=== PATIENT | female | born 1950 | race Caucasian/White ===

== ENCOUNTER 2016-08-25 13:06 | Emergency (ER) | payer OTHER ==
[~2016-08-25 13:06] MED LIST: ASPI-973 PO; FOLI1TAB18 PO; IBUP800T28 PO; LORA-302 PO; LORA0.5T PO; MTC5T PO; ONDA-54 PO; OXYC20TA55 PO; SERT50TA9 PO; WARF5TAB9 PO
[2016-08-25 13:17] VITALS: BP 131/79; PULSE 107; RESP 20; O2SAT 98
--- NOTE | 2016-08-25 13:50 | ED.REPORT ---
HPI-Chest Pain 40 and Over Date of Service Aug 25, 2016 ED Provider: Layo Cobb MD Pt is a 65 y/o female anticoagulated on Warfarin and undergoing chemotherapy with Alimta and Avastin w/ a hx of stage IV lung CA, prev DVT, presenting to the ED c/o left-sided chest pain/heaviness onset 09:30 this morning. She c/o associated SOB, generalized weakness, nausea, vomiting x1 episode yesterday, intermittent dry cough, fever of 100F 2 days ago that has now resolved. She denies abdominal pain, diarrhea. Her pain is exacerbated by bending forwards. The pt has required thoracentesis multiple times previously and believes today' s episode to be similar. She has a history of DVT and is currently taking Warfarin. Her last chemotherapy treatment was 1 week ago. Her prognosis was initially thought to be months but it has been a year since her diagnosis. Oncologist: Dr. Lord Nursing Notes Stated Complaint: CHEST PAIN Chief Complaint: Chest Pain Nursing Notes Reviewed: Yes Allergies: Coded Allergies: No Known Allergies (Verified , 06/02/16) Scheduled Aspirin (Aspirin) 81 Mg Tablet 81 MG PO Evening Folic Acid (Folic Acid) 1 Mg Tablet 1 MG PO DAILY Levofloxacin (Levaquin) 750 Mg Tablet 750 MG PO DAILY Lorazepam (Ativan) 0.5 Mg Tablet 0.5 MG PO MORNING Ondansetron (Ondansetron) 8 Mg Tablet 8 MG PO BID Oxycodone ER (Oxycontin) 20 Mg Tab.er.12h 20 MG PO BID Sertraline HCl (Sertraline) 50 Mg Tablet 50 MG PO DAILY Warfarin Sodium (Jantoven) 5 Mg Tablet 5 MG PO DAILY Scheduled PRN Ibuprofen (Ibuprofen) 800 Mg Tablet 800 MG PO TID PRN PRN For Pain Lorazepam (Lorazepam) 0.5 Mg Tablet 1 MG PO HS PRN PRN For Insomnia Metoclopramide (Metoclopramide) 5 Mg Tablet 5 MG PO QID PRN PRN For Nausea Ondansetron ODT (Zofran ODT) 4 Mg Tablet 4 MG PO Q4H PRN PRN For Nausea General Time Seen by MD: 13:26 Chief Complaint Chest pain Hx Obtained From: Patient, EMS Arrived By: Ambulance Sudden in Onset?: No Onset Occurred: 5 - 8 hours ago Symptom Duration: Since onset Location: : Chest left Quality: Painful Severity: Current: Mild Severity: Maximum: Moderate Recent Healthcare: Previous diagnosis Similar Sx Previous: Yes Past Medical History Past Medical History Notes: Oncologist: Dr. 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 Physical Exam Initial Vital Signs Vital Signs (First) Date Time Temp Pulse Resp B/P Pulse Ox O2 Delivery O2 Flow Rate FiO2 08/25/16 13:17 36.9 107 20 131/79 98 Room Air Initial VS: Reviewed, Vital signs abnormal Head / Eyes: Atraumatic, Normocephalic, PERRL ENT: Mucous membranes moist, Conjunctiva normal, No scleral icterus Neck: Supple, Full range of motion Extremities: Vascular intact, Neuro intact, No swelling, No tenderness Skin: Warm, Dry, No cyanosis Neurologic: Alert, Oriented, Nonfocal Psychiatric: Mood/affect normal, Behavior normal, Normal thought content General/Constitutional: Awake, Alert, No acute distress, Cooperative, Not toxic appearing Respiratory / Chest: Atraumatic, No respiratory distress, No retractions, No stridor, No chest wall deformity, No crepitus Decreased breath sounds on the left side Left anterior chest wall tender to palpation Cardiovascular: Heart rate NL, Regular rhythm, Heart sounds NL, No gallop, No murmurs, No rubs, Cap refill not delayed, Peripheral circulation NL Abdomen: Atraumatic, Soft, Non-tender Interpretation & Diagnostics Lab Results Interpretation Result Diagram: 08/25/16 1340 08/25/16 1340 Test 08/25/16 13:40 08/25/16 14:05 White Blood Count 7.3th/mm3 (3.8-10.1) Red Blood Count 3.48mil/mm3 (3.90-5.20) Hemoglobin 10.3g/dL (12.0-15.6) Hematocrit 31.5% (35.0-46.0) Mean Corpuscular Volume 90.5fL (81-100) Mean Corpuscular Hemoglobin 29.6pg (27.0-35.0) Mean Corpuscular Hemoglobin Concent 32.7% (32.0-37.0) Red Cell Distribution Width 19.3% (12.3-15.4) Platelet Count 375bil/L (150-400) Neutrophils (%) (Auto) 69.5% (40-74) Lymphocytes (%) (Auto) 14.1% (14-46) Monocytes (%) (Auto) 14.3% (4-12) Eosinophils (%) (Auto) 1.4% (0-5) Basophils (%) (Auto) 0.3% (0-3) Sodium Level 137mEq/L (134-144) Potassium Level 4.0mEq/L (3.5-5.2) Chloride Level 100mEq/L (97-108) Carbon Dioxide Level 24mmol/L (18-29) Blood Urea Nitrogen 12mg/dL (8-27) Creatinine 0.51mg/dL (0.57-1.00) Estimat Glomerular Filtration Rate 174mL/min (>59) Glucose Level 137mg/dL (60-99) Lactic Acid Level 2.0mmol/L (0.4-2.0) Calcium Level 8.6mg/dL (8.5-10.1) Magnesium Level 1.8mg/dL (1.6-2.6) Total Bilirubin 0.3mg/dL (0.0-1.2) Aspartate Amino Transf (AST/SGOT) 17U/L (0-50) Alanine Aminotransferase (ALT/SGPT) 11U/L (0-32) Alkaline Phosphatase 83U/L (25-165) Troponin T < 0.010ug/L (0.0-0.011) Total Protein 6.1g/dL (6.4-8.4) Albumin 3.3g/dL (3.4-5.0) Hold Jeffery Top Tube Received (Received) D-Dimer 1.6mg/L (<0.50) ECG Interpretation Time: 15:17 Interpreted by: ED physician Normal ECG Interpretation: Normal ECG w/ rate of... (94), Normal rate, Normal sinus rhythm, No acute ischemic changes, Normal QRS, Normal axis, Normal intervals, Adequate tracing X-Ray Chest Interpretation Chest Xray Interpretation: IMPRESSION: Interval increase in size of left pleural effusion. There is an underlying airspace disease such as pneumonia and/or atelectasis cannot be excluded. In addition, there is underlying mass lesion cannot be excluded. Dictated by: Shani Knapp M.D. on 08/25/2016 at 14:18 Approved by: Shani Knapp M.D. on 08/25/2016 at 14:20 View: Portable, 1 view Interpretation / Wet Read by: Interpret - Radiologist CT Chest Interpretation IMPRESSION: 1. Exam is negative for pulmonary embolic disease. 2. Left upper lobe lung cancer is progressively smaller in size. 3. Left pleural effusion has increased markedly in volume, causing apparent atelectasis in the lingula and left lower lobe. There is also patchy infiltrate in the left lower lobe which may represent pneumonia. Dictated by: Eitan Marsh M.D. on 08/25/2016 at 15:29 Approved by: Eitan Marsh M.D. on 08/25/2016 at 15:39 Study type: CT pulm angiogram Interpretation / Wet Read by: Interpret - Radiologist Re-Eval/Medical Decision Med Decision/Clinical Course 65-year-old female history of lung cancer with history of pericardial mets presenting complaining of left-sided shortness of breath and chest pain since 9:00 this morning. Her oxygen is 98% on room air. CT Angio chest shows improvement in cancer question of left lower lobe pneumonia, no PE. Troponins negative. EKG no ischemia. I discussed with oncology Dr. Lord who informed me her chemotherapy medications are not immunosuppressive and she can be treated as an outpatient. Will treat with Levaquin for possible left lower lobe pneumonia. Discussed with the patient and she would prefer to go home and be treated as an outpatient. Advised to follow up with primary doctor tomorrow for repeat oxygen check. Return immediately should she develop any worsening shortness of breath, chest pain or any other new or worsening symptoms. Source of Hx: Old records, EMS Time of Eval: 15:58 Re-Evaluation/Progress Note: Pt rechecked. Discussed admission vs discharge. She feels ok to be discharged at this time and I believe this is appropriate. Informed pt of plan for treatment. Pt understands and agrees with plan for treatment. F/U and RTER warnings given. All questions addressed. Consultation : Referral / Consult Name: Ajith Alcantara MD Call Returned at: 16:45 Outside Maintenance Worker: Agrees with eval, Agrees with plan Note: Case discussed with oncology. They agree with plan for discharge. Counseled Regarding: Diagnosis, Lab results, Need for follow-up, When/why to return to ED Discharge & Departure Primary Impression: Pneumonia involving left lung Pneumonia type: due to unspecified organism Lung location: lower lobe of lung Qualified Code: J18.9 - Pneumonia, unspecified organism Disposition: Home Discharge Condition All VS Reviewed: Yes Condition: Stable Patient Instructions: Bacterial Pneumonia (ED) Additional Instructions: Your CT scan showed no blood clot. It showed that the cancer has decreased in size. It did show a possible pneumonia of the left lower lung. Take Levaquin as directed. Return to the emergency department for worsening shortness of breath, worsening pain, high fever, persistent vomiting, or for other concerning symptoms. Please follow-up with a primary care doctor tomorrow for a re-evaluation. Referrals: Itzel Colon MD (PCP) Phoebeibe Attestation Portions of this note were transcribed by Bony Oneill. I, Dr. Cobb personally performed the history, physical exam and medical decision-making; I reviewed and confirmed the accuracy of the information in the transcribed note. Signed by Hailey Lopez, 08/25/16 - 1500 copies to: Itzel Colon MD, Ben M MD Aug 25, 2016 13:50 BONY ONEILL Aug 25, 2016 14:02
[2016-08-25 13:52] LABS: BASOPHILS % (AUTO) 0.3 % (0-3); EOSINOPHILS % (AUTO) 1.4 % (0-5); MONOCYTES % (AUTO) 14.3 % (4-12); Mean Corpuscular Hemoglobin 29.6 pg (27.0-35.0); Mean Corpuscular Volume 90.5 fL (81-100); NEUTROPHILS % (AUTO) 69.5 % (40-74); Platelet Count 375 bil/L (150-400)
[2016-08-25 14:15] LABS: TROPONIN T < 0.010 ug/L (0.0-0.011)
--- NOTE | 2016-08-25 14:21 | DRSVH ---
PROCEDURE: X-RAY CHEST ONE VIEW, PORTABLE ([id number]) INDICATIONS: cough TECHNIQUE: One view of the chest was acquired. COMPARISON: [facility], CT, CT CHEST ABD PELVIS W CON, 07/11/2016, 9:38. [facility], CR, XR CHEST 1VW (PORTABLE), 06/02/2016, 12:59. FINDINGS: Surgical changes and devices: Left Port-A-Cath is present with distal tip overlying the proximal SVC. Lungs and pleura: There is a moderate left pleural effusion with superimposed consolidation. This has increased compared to prior exam dated 07/11/16. Patchy opacity is present near the left apex respondi ng to known apical mass. Mediastinum: Mediastinal contours appear normal. Heart size is normal. Bones and chest wall: No suspicious bony lesions. Overlying soft tissues appear unremarkable. IMPRESSION: Interval increase in size of left pleural effusion. There is an underlying airspace disea se such as pneumonia and/or atelectasis cannot be excluded. In addition, there is underlying mass les ion cannot be excluded. Dictated by: Shani Knapp M.D. on 08/25/2016 at 14:18 Approved by: Shani Knapp M.D. on 08/25/2016 at 14:20
[2016-08-25 14:24] LABS: Magnesium 1.8 mg/dL (1.6-2.6)
[2016-08-25] MEDS ORDERED: Ondansetron 2 mg/mL 2 mL Inj IVPUSH PRN (14:35)
--- NOTE | 2016-08-25 15:39 | DRSVH ---
PROCEDURE: CT ANGIO CHEST PULMONARY EMBOLISM ([id number]) INDICATIONS: cp h/o blood clots, lung cancer TECHNIQUE: After the administration of intravenous contrast, 2 mm thick sections acquired from the pulmonary api marlo to the posterior costophrenic angles. 3-dimensional maximum intensity projection (MIP) coronal a nd sagittal reformats were then acquired through the thorax. For radiation dose reduction, the follo wing was used: automated exposure control, adjustment of mA and/or kV according to patient size. COMPARISON: CT CAP 07/11/2016; CTA chest 06/02/2016 FINDINGS: Image quality: Excellent. Pulmonary arteries: Pulmonary arteries are normal in size, and demonstrate no intraluminal filling d efects to suggest central pulmonary embolism. Lungs and pleura: Left upper lobe mass is again smaller, now at 1.2 x 3.5 cm compared to 1.7 x 4 cm o n last study. Left pleural effusion has increased considerably in volume. No right-sided effusion. Th ere is considerable atelectasis in the left lobe as well as a patch of focal infiltrate in the left l ower lobe which may well represent pneumonia but is indeterminate. Mediastinum: Heart size is normal, without pericardial effusion. No mediastinal or hilar adenopathy . Thoracic aorta is normal in caliber and enhancement. Esophagus is normal in caliber, without hiat al hernia. Bones and chest wall: Left-sided port with tip in the SVC. Sclerotic bone lesions are present in the left side of C6 and body of C7. Ribs and thoracic spine appear intact. Thyroid gland appears normal. No axillary or supraclavicular adenopathy. Abdomen: Visualized upper abdominal solid organs appear normal in the early arterial phase of enhanc ement. IMPRESSION: 1. Exam is negative for pulmonary embolic disease. 2. Left upper lobe lung cancer is progressively smaller in size. 3. Left pleural effusion has increased markedly in volume, causing apparent atelectasis in the lingul a and left lower lobe. There is also patchy infiltrate in the left lower lobe which may represent pne umonia. Dictated by: Eitan Marsh M.D. on 08/25/2016 at 15:29 Approved by: Eitan Marsh M.D. on 08/25/2016 at 15:39
[2016-08-25] MEDS ORDERED: LEVO750T9 PO (16:46)
[2016-08-25] MEDS ORDERED: ONDA4TAB9 PO (16:46)
[2016-08-25 17:05] VITALS: BP 117/67; PULSE 97; RESP 20; O2SAT 94
[2016-08-25] MEDS ORDERED: Ketorolac 30 mg/mL 2 mL Inj IM ONE (17:30)
[2016-08-30] MEDS ORDERED: WARF6TAB6 PO (10:36)
[2016-08-30] MEDS ORDERED: ZLP10T PO (10:36)
[2016-08-30] MEDS ORDERED: WARF6TAB7 PO (11:16)
== END 2016-08-25 17:39 | disposition home or self-care (01) ==
LOC: SED 13:06
DX: J18.9 Pneumonia, unspecified organism (principal); C34.12 Malignant neoplasm of upper lobe, left bronchus or lung; Z95.828 Presence of other vascular implants and grafts; Z86.718 Personal history of other venous thrombosis and embolism; Z79.82 Long term (current) use of aspirin; Z79.01 Long term (current) use of anticoagulants
CPT/HCPCS: 36415; 71010; 71275; 80053; 83605; 83735; 84484; 85025; 85379; 93005; 96372; 96374; 99285; J1885; J2405; Q9967

== ENCOUNTER 2016-08-31 13:41 | Inpatient (IN) | payer OTHER ==
[~2016-08-31] VITALS: Ht 162.6 cm; Wt 61.1 kg
[~2016-08-31 13:41] MED LIST changes: -IBUP800T28 PO; +LEVO750T9 PO; -ONDA-54 PO; +ONDA4TAB9 PO; -WARF5TAB9 PO; +WARF6TAB7 PO; +ZLP10T PO
[2016-08-31 13:48] VITALS: BP 127/97; PULSE 124; RESP 16; O2SAT 97
[2016-08-31 14:11] LABS: BASOPHILS % (AUTO) 0.3 % (0-3); EOSINOPHILS % (AUTO) 0.2 % (0-5); MONOCYTES % (AUTO) 14.9 % (4-12); Mean Corpuscular Volume 87.9 fL (81-100); NEUTROPHILS % (AUTO) 74.8 % (40-74); Platelet Count 490 bil/L (150-400)
[2016-08-31 14:34] LABS: Magnesium 1.6 mg/dL (1.6-2.6)
--- NOTE | 2016-08-31 14:46 | DRSVH ---
PROCEDURE: X-RAY CHEST ONE VIEW, PORTABLE ([id number]) INDICATIONS: dyspnea TECHNIQUE: One view of the chest was acquired. COMPARISON: [facility], CR, XR CHEST 1VW (PORTABLE), 08/25/2016, 13:49. FINDINGS: Surgical changes and devices: Stable positioning of left subclavian chest port. Lungs and pleura: Moderate to large left pleural effusion redemonstrated intense mid left lung and ba silar opacification Lungs clear. Mediastinum: Mediastinal contours appear normal. Heart size is normal. Bones and chest wall: No suspicious bony lesions. Overlying soft tissues appear unremarkable. IMPRESSION: Left pleural effusion redemonstrated and mid/basilar airspace opacity consistent with com pressive atelectasis, pneumonia or underlying neoplasm. Dictated by: Lior Hilton [facility] Interpreted: Gabi Masters MD on 08/31/2016 at 14:39 Transcribed by: IRASEMA on 08/31/2016 at 14:45 Approved by: Gabi Masters MD, PhD on 08/31/2016 at 17:15
[2016-08-31 14:50] LABS: INR 1.69 ratio
[2016-08-31] MEDS ORDERED: Phytonadione (Adult) 10 MG in Dextrose 5%-Pha MIX 50 ML IV ONE (15:25)
--- NOTE | 2016-08-31 15:41 | ED.REPORT ---
HPI-Dyspnea / Wheezing Date of Service Aug 31, 2016 ED Provider: Lucas Dickens DO History of Present Illness: Patient is a 65 y.o. F past medical history of stage 4 lung Last 08/25/16 seen in ED and discharged with Levofloxacin 750 mg PO daily for pneumonia, now day 12/10 of treatment. Last thoracentesis Monday 1700 cc, on pathology report maligant cells consistent with adenocarcinoma were seen. Monday night patient experienced worsening of symptoms. Patient seen by Oncology 08/30/16 on physical exam decreased breath sounds on left consistent with reacumulated fluid, patient was scheduled for thoracentesis tomorrow 09/01/16. Patient reported a two day history of worsening shortness of breath, associated with fever, non-productive cough, chest pain located across entire chest with radiation to back, nausea, vomiting. Patient seen by PCP Dr. Hall today and was directed to the ED for earlier work up and drainage of fluid reaccumulation. Warfarrin discontinued 08/29/16. Increased oxygen requirements requiring 3 L via NC in ED. Nursing Notes Stated Complaint: SOB Chief Complaint: Respiratory Distress Nursing Notes Reviewed: Yes Allergies: Coded Allergies: No Known Allergies (Verified , 06/02/16) Scheduled Folic Acid (Folic Acid) 1 Mg Tablet 1 MG PO DAILY Levofloxacin (Levaquin) 750 Mg Tablet 750 MG PO DAILY Oxycodone ER (Oxycontin) 20 Mg Tab.er.12h 20 MG PO HS Sertraline HCl (Sertraline) 50 Mg Tablet 150 MG PO DAILY Scheduled PRN Lorazepam (Ativan) 0.5 Mg Tablet 0.25 MG PO TID PRN PRN For Anxiety 1/2 tablet for nausea/anxiety/insomnia Metoclopramide (Metoclopramide) 5 Mg Tablet 5 MG PO QID PRN PRN For Nausea Ondansetron ODT (Zofran ODT) 4 Mg Tablet 4 MG PO Q4H PRN PRN For Nausea Zolpidem (Ambien) 10 Mg Tablet 10 MG PO HS PRN PRN For Insomnia General Time Seen by MD: 14:30 Chief Complaint Shortness of breath (increased O2 requirement with no home oxygen) Hx Obtained From: Patient, Spouse, Daughter Sudden in Onset?: No Onset Occurred: 2 days ago Recent Healthcare: Recent doctor visit (2/27/17) Similar Sx Previous: Yes (required throacentesis, drained aprox 1700cc fluid from left lung) Past Medical History Past Medical History Notes: Oncologist: Dr. Lord Past Medical History stage IV left sided lung adenocarcinoma diagnosed September 11, 2015 malignant pericardial effusion with tamponade physiology requiring pericardial drain DVT blood clot in right leg (on Coumadin) Past Surgical History 2 breast biopsies Port-a-cath Reports: Appendectomy, Smoking History Never Smoker Social History Alcohol Use: Denies alcohol use Drug Use: Denies drug use Other Social History: Good social support, , Local resident Ambulatory Status Independent Review of Systems Basic Review of Systems Eyes: Vision NL, No discharge GI: No abdominal pain, No anorexia, No nausea, No vomiting : No dysuria Hematologic: No bleeding, No bruising Endocrine: No cold intolerance, No heat intolerance, No weight gain, No weight loss Neurologic: NL mental status, No weakness, No numbness Psychiatric: Normal thought content Constitutional: Reports: Chills, Fatigue, Fever Ears / Nose / Throat: Denies: Ear drainage bilateral Respiratory: Reports: Dyspnea on exertion, Non-productive cough, Pleuritic pain , Denies: Hemoptysis Cardiovascular: Reports: Chest pain, Dyspnea on exertion Musculoskeletal: Reports: Back pain Skin: Denies Bruising, Denies Diaphoresis, Denies Rash Complete sys rev & neg: except as marked. Physical Exam Initial Vital Signs Vital Signs (First) Date Time Temp Pulse Resp B/P Pulse Ox O2 Delivery O2 Flow Rate FiO2 08/31/16 13:48 36.7 124 16 127/97 97 Nasal Cannula 2 General/Constitutional: Awake, Alert Distress / Hydration: Positive: Distress mild Appearance / Presentation: Positive: Cachectic, Debilitated Resp Distress / Stridor: Positive: Resp distress mild Diminished Breath Sounds: Positive: Decreased bilateral (at lung bases, L>R, up to 6th rib on left ) Wheezing / Retractions: Positive: Wheezing mild Chest Wall / Ribs: Positive: Chest tender lower L, Chest tender lower R Cardiovascular: Regular rhythm, Heart sounds NL, No murmurs, No rubs Heart Rate / Rhythm: Positive: Tachycardia Interpretation & Diagnostics Lab Results Interpretation Result Diagram: 08/31/16 1400 08/31/16 1400 Test 08/31/16 14:00 08/31/16 14:23 3/1/17 14:50 White Blood Count 11.4th/mm3 (3.8-10.1) Red Blood Count 3.22mil/mm3 (3.90-5.20) Hemoglobin 9.0g/dL (12.0-15.6) Hematocrit 28.3% (35.0-46.0) Mean Corpuscular Volume 87.9fL (81-100) Mean Corpuscular Hemoglobin 28.0pg (27.0-35.0) Mean Corpuscular Hemoglobin Concent 31.8% (32.0-37.0) Red Cell Distribution Width 18.6% (12.3-15.4) Platelet Count 490bil/L (150-400) Neutrophils (%) (Auto) 74.8% (40-74) Lymphocytes (%) (Auto) 9.4% (14-46) Monocytes (%) (Auto) 14.9% (4-12) Eosinophils (%) (Auto) 0.2% (0-5) Basophils (%) (Auto) 0.3% (0-3) Sodium Level 132mEq/L (134-144) Potassium Level 3.6mEq/L (3.5-5.2) Chloride Level 95mEq/L (97-108) Carbon Dioxide Level 21mmol/L (18-29) Blood Urea Nitrogen 10mg/dL (8-27) Creatinine 0.48mg/dL (0.57-1.00) Estimat Glomerular Filtration Rate 187mL/min (>59) Glucose Level 133mg/dL (60-99) Calcium Level 8.0mg/dL (8.5-10.1) Magnesium Level 1.6mg/dL (1.6-2.6) Total Bilirubin 0.5mg/dL (0.0-1.2) Aspartate Amino Transf (AST/SGOT) 18U/L (0-50) Alanine Aminotransferase (ALT/SGPT) 10U/L (0-32) Alkaline Phosphatase 96U/L (25-165) Total Protein 5.8g/dL (6.4-8.4) Albumin 2.6g/dL (3.4-5.0) Prothrombin Time 18.3sec (8.1-12.5) Prothromb Time International Ratio 1.69ratio Lactic Acid Level 1.7mmol/L (0.4-2.0) ECG Interpretation ECG Interpretation: Rate 115 NSR normal axis no significant ST changes noted, do not agree with computer interpretation no significant interval change Interpreted by: ED physician X-Ray Chest Interpretation Chest Xray Interpretation: IMPRESSION: Left pleural effusion redemonstrated and mid/basilar airspace opacity consistent with compressive atelectasis, pneumonia or underlying neoplasm. Dictated by: Lior Hilton RRA Interpreted: Gabi Masters MD on 08/31/2016 at 14:39 Transcribed by: IRASEMA on 08/31/2016 at 14:45 Interpretation / Wet Read by: Interpret - Radiologist Re-Eval/Medical Decision Med Decision/Clinical Course patient is a 65 y.o. F presents with worsening dyspnea due to reaccumulation of pleural effusion from stage 4 lung cancer. Patient was scheduled for throacentesis tomorrow, due to symptoms patient sent to ED by PCP Dr. Hall. Physical exam and radiographic findings show significant reaccumulation of left pleural effusion. Patient recenly discontinued Coumadin 08/29/16 INR today 1.7, which presents a major risk factor for bleeding post thoracentesis, confirmed by radiology. Reccomend give vitamin K and have procedure done tomorrow as scheduled. Patient will require overnight monitoring of respiratory status, pain control, and thoracentesis to drain fluid from lung once INR is normalized, likley tomorrow. Source of Hx: Old records, Family Consultation #1: Consulted With: On-call physician (radiology) Requested Call at: 15:22 Call Returned at: 15:22 Note: Discussed case with radiology about cut-off level for INR. Require INR <1.5 reccomend admission and vitamin K to bring INR level down to decrease risk of complication. Consultation #2: Referral / Consult Name: Adin Bro MD Consulted With: Hospitalist Requested Call at: 16:09 Call Returned at: 16:09 Educational Therapist: Will see patient, Agrees with eval, Agrees with plan, Accepts admit Counseled Regarding: Diagnosis, Lab results, Need for admission Discharge & Departure Impression: Primary Impression: Respiratory distress Additional Impressions: Pleural effusion on left Adenocarcinoma of lung, stage 4 Laterality: left Qualified Code: C34.92 - Malignant neoplasm of unspecified part of left bronchus or lung Disposition: ADMITTED TO HOSPITAL Discharge Condition All VS Reviewed: Yes Condition: Stable Referrals: Itzel Colon MD (PCP) Attending Statement The patient was seen and examined together with Dr. Lemon on 08/31/16 and I agree with the history, exam and plan as outlined in the note above. copies to: Itzel Colon MD, AARON J DO Aug 31, 2016 14:14 Lucas Dickens DO Aug 31, 2016 17:31
[2016-08-31] MEDS ORDERED: HYDROmorphone 0.5 mg/0.5 mL iSecure Syringe IVPUSH PRN (15:55)
[2016-08-31 15:58] VITALS: BP 117/78; PULSE 115; RESP 20; O2SAT 97
[2016-08-31] MEDS ORDERED: levoFLOXacin 750 mg Tablet PO ONE (16:00)
[2016-08-31] MEDS ORDERED: oxyCODONE ER 20 mg ER12 Tablet PO ONE (16:00)
[2016-08-31] MEDS ORDERED: Alum-Mag Hydrox-Simeth 30 mL Suspension PO PRN (16:40)
[2016-08-31] MEDS ORDERED: Polyethylene Glycol (PEG) 17 Gm Powder PO PRN (16:40)
[2016-08-31 16:42] VITALS: BP 105/67; PULSE 118; RESP 25; O2SAT 96
--- NOTE | 2016-08-31 16:52 | PCM.HPMED ---
Subjective Date of Service Aug 31, 2016 Primary Provider: Admitting Physician: Primary Care Physician: Itzel Colon MD Attending Physician: Chief Complaint: dyspnea, resp failure History of Present Illness: 65 y.o. F past medical history of stage 4 lung Last 08/25/16 seen in ED and discharged with Levofloxacin 750 mg PO daily for pneumonia, now day 6 of treatment. Last thoracentesis Monday 1700 cc, on pathology report maligant cellsconsistent with adenocarcinoma were seen. Monday night patient experienced worsening of symptoms. Patient seen by Oncology 08/30/16 on physical exam decreased breath sounds on left consistent with reacumulated fluid , patient was scheduled for thoracentesis tomorrow 09/01/16. Patient reported a two day history of worsening shortness of breath, associated with fever, non- productive cough, chest pain located across entire chest with radiation to back , nausea, vomiting. Patient seen by PCP Dr. Hall today and was directed to the ED for earlier work up and drainage of fluid reaccumulation. Warfarrin discontinued 08/29/16. Increased oxygen requirements requiring 3 L via NC in ED. Review of Systems: Gen.: No weight gain patient has been having fevers and malaise Eyes: no visual disturbances or blurring vision HEENT: No nose/throat drainage, no pain in ears or throat, no hearing loss Lymph: No lymph nodes noted Cardiac: No chest pain, orthopnea, PND, palpitations , pedal edema or +dyspnea on exertion Pulmonary: wheezing or bringing up of sputum + worsening dyspnea and cough, left-sided chest pain GI: No anorexia nausea vomiting blood or black in the stool : no dysuria hematuria urinary frequency or decrease in urine output Musculoskeletal: Joint swelling no joint pain no new muscle aches or back pain Neuro: No syncope, seizures no loss of consciousness no new focal weakness, numbness or tingling Psychiatric: New new anxiety insomnia or depression Endocrine: No new heat or cold intolerances polyuria or polydipsia Hematology: No lymphadenopathy or easy bleeding or bruising noted skin: No new rashes, stasis dermatitis Allergies Coded Allergies: No Known Allergies (Verified , 06/02/16) Home Medications Aspirin (Aspirin) 81 Mg Tablet 81 MG PO Evening Folic Acid (Folic Acid) 1 Mg Tablet 1 MG PO DAILY Levofloxacin (Levaquin) 750 Mg Tablet 750 MG PO DAILY Lorazepam (Ativan) 0.5 Mg Tablet 0.5 MG PO prn Oxycodone ER (Oxycontin) 20 Mg Tab.er.12h 20 MG PO HS Sertraline HCl (Sertraline) 50 Mg Tablet 50 MG PO DAILY Warfarin Sodium (Jantoven) 6 Mg Tablet 6 MG PO DAILY Scheduled PRN Lorazepam (Lorazepam) 0.5 Mg Tablet 1 MG PO HS PRN PRN For Insomnia Metoclopramide (Metoclopramide) 5 Mg Tablet 5 MG PO QID PRN PRN For Nausea Ondansetron ODT (Zofran ODT) 4 Mg Tablet 4 MG PO Q4H PRN PRN For Nausea Zolpidem (Ambien) 10 Mg Tablet 10 MG PO HS PRN PRN For Insomnia H Oncologist: Dr. 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 She lives with her in the area. Her daughter is very involved in supporting care. Alcohol Use: Denies alcohol use Drug Use: Denies drug use Other Social History: Good social support, , Local resident Ambulatory Status- Independent FAMILY HISTORY: Father had lung cancer at a younger age but was able to live up to his 90s and also had colon cancer. He was a heavy smoker. Social History Hx Alcohol Use: No Hx Substance Use: No Hx Tobacco Use: No Smoking Status: Never Smoker Exam Vital Signs Vital Sign - Last Date Time Temp Pulse Resp B/P Pulse Ox O2 Delivery O2 Flow Rate FiO2 08/31/16 15:58 115 20 117/78 97 Room Air 08/31/16 13:48 36.7 2 Exam Gen.- Then not quite cachectic female lying in bed with visitors A+ O 3 no apparent distress. Eyes- open conjunctiva clear, pupils equal nonicteric Mouth- oral mucosa moist, no exudate, dentition intact ENT- ears normal, nose normal Neck- supple/trach midline CVS- RRR no murmur or gallop, on the chest sided Port-A-Cath in place Lungs- CTA, on the right left side diminished breath sounds towards the left base GI- NABS/NT soft, flat Musc- moving 4 no obvious deformity Neuro- cranial nerves II through XII intact to gross examination, nonfocal Skin- warm and dry, no rashes/lesions/wounds noted Psych- pleasant and appropriate, Lab and Diagnostics Labs INR 1.7 Result Diagram: 08/31/16 1400 08/31/16 1400 X-Rays, CTs and MRIs CXR concurrently reviewed by myself shows the Port-A-Cath in place on the left and a pleural effusion that picks up at least half the left lung cavity CT chest 08/25 1. Exam is negative for pulmonary embolic disease. 2. Left upper lobe lung cancer is progressively smaller in size. 3. Left pleural effusion has increased markedly in volume, causing apparent atelectasis in the lingula and left lower lobe. There is also patchy infiltrate in the left lower lobe which may represent pneumonia. Dictated by: Eitan Marsh M.D. on 08/25/2016 at 15:29 Assessment & Plan 65-year-old female with recurrent malignant pleural effusion came in because she was dyspneic admitted because of respiratory failure. Should her INR was still 1.7 today so procedure was held. The plan was to just let her INR taper down and do the procedure 09/01 at 2:30 PM when it was previously scheduled, unfortunately 10 mg of vitamin K was given IV in the emergency room before I saw the patient and while I am certain that this will more than sufficiently reverse her warfarin, it will take a while to reverse this and get her INR back to therapeutic after the procedure. Acute respiratory failure-secondary to recurrent pleural effusion Recurrent malignant Left pleural effusion-cytology +08/26, repeat INR ordered for the morning. Labs including LDH, Gram stain, culture and sensitivity have been ordered on the pleural fluid just in case this is a parapneumonic effusion that is presenting as malignant recurrent pleural effusion. At this time the patient has been scheduled for a Pleurx catheter around 09/07. Possible pneumonia- by CT scan 08/25 "possible "pneumonia A think that 7 days is sufficient but she may have nearly completed 10 days I see no reason to stop it at this time. Anticoagulated for DVT September 2015 gastronemius/peroneal- since this was a year ago and distal do not see a need to bridge this patient before resuming warfarin, consider discussing with her primary oncologist Dr. Risa Anemia-hg steadily dropped 10.9 08/16, 9.9 08/30, 9.0 08/31 follow-up ordered for the a.m. we will order an anemia panel Leukocytosis-improving with Levaquin Prophylaxis-DVT we will place SCDs, no anticoagulation due to procedure Disposition-full code from home Time spent 60min Adin Bro MD Aug 31, 2016 16:52
[2016-08-31 17:06] VITALS: BP 111/67; PULSE 119; RESP 20; O2SAT 96
[2016-08-31 17:30] VITALS: BP 112/71; PULSE 118; RESP 16; O2SAT 95
--- NOTE | 2016-08-31 17:30 | NUR ---
Arrived on Unit Patient arrived on floor from ED via stretcher in stable condition. A&Ox3. VSS with 118 heart rate. Patient on 3L NC for comfort. Denies pain and has slight nausea at this time. Patient orientated to call light, bed, and telephone. Patient is not a falls risk but is weak and stated she would call when she needs to use the restroom. Family at bedside. Plan is for thoracentesis tomorrow if PT decreased. Call light and tray table within reach. Will continue to monitor patient hourly.
[2016-08-31] MEDS ORDERED: LORazepam 0.5 mg Tablet PO PRN (19:20)
[2016-08-31 19:30] VITALS: BP 116/75; PULSE 112; RESP 17; O2SAT 94
[2016-08-31] MEDS ORDERED: levoFLOXacin 750 mg Tablet PO SCH (20:30)
[2016-08-31] MEDS ORDERED: oxyCODONE ER 20 mg ER12 Tablet PO SCH (21:00)
--- NOTE | 2016-08-31 21:43 | NUR ---
Breathing Pt has difficulty breathing with exacerbated chest/upper abdominal pain when she coughs. Pt understands that she has IV dilaudid for breakthru pain She does not want anything at this time Given oxycontin 20mg PO ER earlier this evening. WIll cont to monitor
[2016-09-01] VITALS (7 sets, daily range): BP systolic 107–116; BP diastolic 61–73; PULSE 110–121; RESP 16–22; O2SAT 92–97
[2016-09-01 02:31] LABS: BASOPHILS % (AUTO) 0.5 % (0-3); EOSINOPHILS % (AUTO) 0.2 % (0-5); MONOCYTES % (AUTO) 16.1 % (4-12); Mean Corpuscular Hemoglobin 28.1 pg (27.0-35.0); Mean Corpuscular Volume 87.6 fL (81-100); NEUTROPHILS % (AUTO) 71.5 % (40-74); Platelet Count 422 bil/L (150-400)
[2016-09-01 02:45] LABS: INR 1.18 ratio
[2016-09-01 03:00] LABS: Unsaturated Iron Binding 124.7 ug/dL
[2016-09-01] MEDS: Ondansetron 2 mg/mL 2 mL Inj IVPUSH PRN ×2 (08:23→18:02)
[2016-09-01] MEDS ORDERED: Sodium Chloride LOK Flush 10 mL Syringe IVFLUSH PRN ×2 (14:20)
[2016-09-01] MEDS ORDERED: HepLOK Flush 100 unit/mL 5 mL Inj IVFLUSH PRN (14:20)
--- NOTE | 2016-09-01 14:28 | NUR ---
tar pot workercriminology teacher note: Patient is well known to me. I explained my role as manager installation. Provided patient with my card. Patient has [employer]. Supportive family. Patient and daughters had questions regarding Pleurodesis and PleuRx Catheter. Provided patient with Care Notes information on Pleurodesis and recommended family ask the surgeon or Radiologist about the Pleurodesis vs PleuRx catheter as a second opinion. Reminded them they need to make a decision that best meets patient's quality of life. I notified [facility] Mariluz JACOBS, of patient's request for Home health PT, Bath aid and RN if patient chooses to have the PleuRx Catheter. No other care needs identified at this time. Will continue to follow and address any care needs that may arise.
--- NOTE | 2016-09-01 14:48 | NUR ---
Social Work: Screen Note Data & Assessment: Patient is a 65 y/o emale that admitted on 08/31/16 for Left Pleural Effusion and Stage IV ADCA Lung per H& P. SW met with patient and patient's family at bedside and SW role explained, initial assessment complete and discharge planning discussed. Patient was provided with a list of HH choices. [facility] Patient's clinical will be faxed to [facility] once patient is closer to discharge. SW provided telephone number on [facility] board. SW will continue to follow. Plan: Patient is likely to discharge home with family and [facility]. SW will continue to follow. Mariluz Cruz. JASON, MARINO
--- NOTE | 2016-09-01 15:38 | NUR ---
Off unit for thoracentesis Pt off unit from 1430 to 1530 for thoracentesis. Daughter accompanying to US for consent and questions. Per radiologist, thoracentesis ineffective because PE is loculated. Dr. Cordero at bedside consulting family about potential treatments and we await recommendation from Dr. Lord about surgical interventions. Pt tolerated procedure fair but does not report improved symptoms at this time. Continues to be SOB and requiring 3L SpO2 via NC.
--- NOTE | 2016-09-01 15:39 | DRSUS ---
CORRECTED ACCOUNT AND ACCESSION/PLACER NUMBERS ON 09/07/16 PROCEDURE: X-RAY CHEST ONE VIEW ([id number]) INDICATIONS: POST THORACENTESIS TECHNIQUE: One view of the chest was acquired. COMPARISON: [facility], CR, XR CHEST 1VW, 08/26/2016, 17:40. [facility], CR, XR CHEST 1VW, 06/01/2016, 14:03. [facility], CR, XR CHEST 1VW, 09/12/2015, 13:45. [facility], CR, XR CHEST 1VW (PORTABLE), 08/31/2016, 14:06. FINDINGS: Surgical changes and devices: Left-sided portacatheter, tip of which is in the upper SVC. Lungs and pleura: No pneumothorax. Moderate left pleural effusion.. Moderate diffuse interstitial pu lmonary opacity, consistent with edema versus pneumonia. Mediastinum: Mediastinal contours appear normal. Heart size is normal. Bones and chest wall: No suspicious bony lesions. Overlying soft tissues appear unremarkable. IMPRESSION: 1. No complication following left-sided thoracentesis. 2. No change in moderate diffuse edema versus pneumonia. Dictated by: Nancy Barron M.D. on 09/01/2016 at 15:37 Approved by: Nancy Barron M.D. on 09/01/2016 at 15:37
[2016-09-01] MEDS ORDERED: LORazepam 0.5 mg Tablet PO PRN (17:50)
[2016-09-01] MEDS ORDERED: fentaNYL-PF 50 mCg/mL 2 mL Inj IVPUSH ONE (18:05)
--- NOTE | 2016-09-01 19:53 | NUR ---
Chest tube placement P: Chronic pleural effusion not successfully treated with thoracentesis today. Plan to place chest tube at bedside. I: Medications and cart prepared, confirmed pt and family had been consulted by Dr. Cano. PCC nurse Kaylee Henderson assisting with procedure and for recovery. RT at bedside. Chest tube placement successful. E: Pt tolerating procedure well, VSS, pain adequately controlled. Care passed over to [facility] nurse Narda Hector at this time.
[2016-09-01] MEDS ORDERED: HYDROmorphone PCA 0.2 mg/mL 30 mL Inj IV PRN (19:54)
[2016-09-01] MEDS ORDERED: HYDROmorphone 1 mg/mL Inj IVPUSH PRN ×3 (20:00→23:25)
[2016-09-01] MEDS ORDERED: MetoCLOpramide 5 mg/mL 2 mL Inj IVPUSH PRN ×2 (20:00→23:25)
[2016-09-01] MEDS ORDERED: Ondansetron 8 mg ODT Tablet PO PRN (20:00)
[2016-09-01] MEDS ORDERED: Ondansetron 2 mg/mL 2 mL Inj IVPUSH PRN ×2 (20:00→23:30)
--- NOTE | 2016-09-01 20:10 | NUR ---
Conscious Sedation I: Conscious sedation performed with 1 mg Versed and 2 mcg Fentanyl IV at bedside for chest tube placement with Dr. Cano. Consent in chart, pt. gives verbal consent. Pt. identified and educated re: procedure, family also educated. E: Pt. remained conscious and at pre-procedure sedation throughout procedure with 5-8/10 pain. RT at head of bed, EtC02, heart rythm and vitals monitored continuously with no major changes aside from moderate decrease in bp. BP returns to pre-procedure levels for post procedure assessment, Sp02 increased with less oxygen demand post chest tube placement.
--- NOTE | 2016-09-01 20:14 | CONS ---
[address] [address] CONSULTATION REPORT PATIENT: ADALI TILLEY : 1950 MR#: [id number] ADMIT: 08/31/2016 JOB ID: [id number] DATE OF SERVICE: 09/01/2016 CHIEF COMPLAINT/IDENTIFICATION: Dr. Lord has asked me to see this 65-year-old woman to place a chest tube for pleurodesis. HISTORY OF PRESENT ILLNESS: The patient has nonoperative left lung cancer. She was recently diagnosed with a malignant pleural effusion. This was tapped once and there were plans to place a PleurX catheter; however, recent tap of her left chest revealed bloody fluid and it was felt that she would benefit more from a chest tube placement and pleurodesis. I am asked to see her for chest tube placement. PAST MEDICAL HISTORY: 1. Stage 4 left-sided lung cancer diagnosed September 2015. 2. History of malignant pericardial effusion with tamponade requiring pericardial drainage. 3. History of DVT in the right leg, on Coumadin until earlier this week status post breast biopsy. 4. History of Port-A-Cath. 5. Appendectomy. 6. . MEDICATIONS: See med list. ALLERGIES: No known allergies. SOCIAL HISTORY: She is . Lives in the area. She is seen with her daughter and son-in-law. REVIEW OF SYSTEMS: Per admission history and physical. PHYSICAL EXAMINATION: She is afebrile at 36.8, pulse is 110, blood pressure is 107/61, 97% on 3 L nasal cannula, with a respiratory rate of 18 to 22. Breath sounds are decreased on the left. LABORATORY DATA: Hematocrit 26.2. INR is 1.18 today. Platelet count is 422. IMAGING: Chest x-ray demonstrates a large left pleural effusion. IMPRESSION AND PLAN: Dr. Lord discussed plans for her for chest tube placement and pleurodesis. I will place a chest tube tonight and try to evacuate her chest cavity of the fluid. She has expressed interest in having pleurodesis done under anesthesia in the OR. My partner will be in charge of the pleurodesis tomorrow and I will pass that information on to her.
[2016-09-01] MEDS: 0.9% Sodium Chloride 250 ML IV SCH (20:15)
[2016-09-01] MEDS: Dextrose 5% 500 ML IV SCH (20:15)
--- NOTE | 2016-09-01 20:29 | DRSUS ---
CORRECTED ACCOUNT AND ACCESSION/PLACER NUMBERS ON 09/07/16 PROCEDURE: X-RAY CHEST ONE VIEW, PORTABLE ([id number]) INDICATIONS: status post chest tube TECHNIQUE: One view of the chest was acquired. COMPARISON: [facility], CR, XR CHEST 1VW (PORTABLE), 08/31/2016, 14:06. [facility], CR, XR CHEST 1VW, 09/01/2016, 15:45. FINDINGS: Surgical changes and devices: There is a previous Port-A-Cath from a left subclavian approach with th e tip in the superior vena cava. There is a new chest tube on the left the tip is overlying the left upper lung field. No pneumothorax or free air is seen. There is been reduction in pleural fluid sligh t improvement of aeration in the left lung since the previous image at 1545 hrs. The disease in the r ight lung more prominent than 08/31/16 is primarily interstitial in appearance. The thickening of the f issure is seen but a minimal effusion cannot be excluded. The appearance would be consistent with jatinder e failure or pneumonia. Lungs and pleura: No pleural effusions or pneumothorax. Lungs are clear. Mediastinum: Mediastinal contours appear normal. Heart size is normal. Bones and chest wall: No suspicious bony lesions. Overlying soft tissues appear unremarkable. IMPRESSION: Chest tube placed with slight reduction of fluid and slight increase in aeration of the l eft chest. Persistent increased lung markings on the right consistent with interstitial edema or pneumonia. Dictated by: Ramakrishna Kong M.D. on 09/01/2016 at 20:26 Approved by: Ramakrishna Kong M.D. on 09/01/2016 at 20:28
[2016-09-01] MEDS: levoFLOXacin 750 mg Tablet PO SCH (20:48)
[2016-09-01] MEDS: oxyCODONE ER 20 mg ER12 Tablet PO PRN (20:51)
--- NOTE | 2016-09-01 23:23 | PCM.PNMED ---
Subjective Date of Service Sep 01, 2016 Subjective Patient was discouraged as they were only able to remove 83 mL by thoracentesis today. She has no other new complaints. Exam Vital Signs Vital Sign - Last Date Time Temp Pulse Resp B/P Pulse Ox O2 Delivery O2 Flow Rate FiO2 09/01/16 22:00 16 94 09/01/16 20:27 Supplement Oxygen 09/01/16 20:17 36.3 110 111/69 2.00 Intake and Output 08/31/16 08/31/16 09/01/16 Cumulative From/Thru 14:59 22:59 06:59 08/31/16 13:48 - 09/01/16 05:53 Intake Total 270 ml 400 ml 670 ml Output Total 0 ml 450 ml 450 ml Balance 270 ml -50 ml 220 ml Intake Oral 0 ml 400 ml 400 ml IV Total 270 ml 270 ml Output Urine Total 0 ml 450 ml 450 ml # Bowel Movements 0 0 0 Exam General: Patient is in no apparent distress. She is somewhat cachectic HEENT: Head is atraumatic and normocephalic. Eyes: Pupils are equally round and reactive to light and accommodation. Extraocular muscles are intact. Sclera are white, anicteric. Subconjunctival mucosa is pink. Ears and nose are unremarkable. Oropharynx: There is no mucosal lesions, there is no thrush, there is no pharyngitis. There does appear to be some thrush. Neck: Is supple, there are no nodes, or masses or tenderness. Chest: There is marked decreased breath sounds of the left lung. Heart: Rate, rhythm is regular. There is no murmur, rub or gallop. Abdomen: Good bowel sounds are present. Abdomen is soft, nontender, no organomegaly or masses were appreciated. Extremities: Are symmetrical and well perfused. There is no edema, there is no cellulitis, no rash. Neurologic: There are no focal neurological deficits. Cranial nerves II through XII are intact. There are no sensory or motor deficits. Psychiatric: Patients mood is calm and shows no sign of agitation. Genital: Deferred Rectal: Deferred Lab and Diagnostics Result Diagram: 09/01/16 0200 09/01/16 0200 Microbiology Blood cultures are negative 2 so far X-Rays, CTs and MRIs CXR concurrently reviewed by myself shows the Port-A-Cath in place on the left and a pleural effusion that picks up at least half the left lung cavity CT chest 08/25 1. Exam is negative for pulmonary embolic disease. 2. Left upper lobe lung cancer is progressively smaller in size. 3. Left pleural effusion has increased markedly in volume, causing apparent atelectasis in the lingula and left lower lobe. There is also patchy infiltrate in the left lower lobe which may represent pneumonia. Dictated by: Eitan Marsh M.D. on 08/25/2016 at 15:29 PROCEDURE: X-RAY CHEST ONE VIEW, PORTABLE ([id number]) INDICATIONS: dyspnea TECHNIQUE: One view of the chest was acquired. COMPARISON: [facility], CR, XR CHEST 1VW (PORTABLE), 08/25/2016, 13: 49. FINDINGS: Surgical changes and devices: Stable positioning of left subclavian chest port. Lungs and pleura: Moderate to large left pleural effusion redemonstrated intense mid left lung and basilar opacification Lungs clear. Mediastinum: Mediastinal contours appear normal. Heart size is normal. Bones and chest wall: No suspicious bony lesions. Overlying soft tissues appear unremarkable. IMPRESSION: Left pleural effusion redemonstrated and mid/basilar airspace opacity consistent with compressive atelectasis, pneumonia or underlying neoplasm. Dictated by: Lior Hilton RRA Interpreted: Gabi Masters MD on 08/31/2016 at 14:39 Transcribed by: RIASEMA on 08/31/2016 at 14:45 Approved by: Gabi Masters MD, PhD on 08/31/2016 at 17:15 Assessment & Plan 65-year-old female with recurrent malignant pleural effusion came in because she was dyspneic admitted because of respiratory failure. Should her INR was still 1.7 today so procedure was held. The plan was to just let her INR taper down and do the procedure 3/2 at 2:30 PM when it was previously scheduled, unfortunately 10 mg of vitamin K was given IV in the emergency room before I saw the patient and while I am certain that this will more than sufficiently reverse her warfarin, it will take a while to reverse this and get her INR back to therapeutic after the procedure. Acute respiratory failure-secondary to recurrent malignant pleural effusion -Thoracentesis yielded only 3 mL of thick fluid. -Patient likely to require VATS or chest tube placement or both -The patient has been scheduled for a Pleurx catheter around 09/07. Possible pneumonia- by CT scan 08/25 "possible "pneumonia - We will continue current antibiotics until her 10 day treatment course has been completed. Oral thrush - Diflucan therapy in a.m. Anticoagulated for DVT September 2015 gastronemius/peroneal- since this was a year ago and distal do not see a need to bridge this patient before resuming warfarin , consider discussing with her primary oncologist Dr. Lord -Likely to have a hypercoagulable state due to her lung cancer Anemia-hg steadily dropped 10.9 08/16, 9.9 08/30, 9.0 08/31 follow-up ordered for the a.m. - We will check anemia panel ordered Leukocytosis-improving with Levaquin -Will continue to complete 10 day course Prophylaxis-DVT we will place SCDs, no anticoagulation due to plan for a procedure Disposition-will likely need further hospitalization for continued evaluation and treatment of the above problems Pain Evaluation: Adequate Pain Control VTE Mechanical Devices: Intermittant Pneumatic CD Resuscitation Status: CPR: Attempt Resuscitation Jett Cordero MD Sep 01, 2016 23:23
[2016-09-02] VITALS (14 sets, daily range): BP systolic 101–119; BP diastolic 60–76; PULSE 94–113; RESP 14–18; O2SAT 90–97
[2016-09-02 00:58] LABS: APPEARANCE,URINE HAZY (CLEAR,HAZY); COLOR,URINE DARK YELLOW (YELLOW); OCCULT BLOOD,URINE NEGATIVE (NEGATIVE); PH,URINE 5.5 (5.0-8.0)
[2016-09-02 02:06] LABS: BASOPHILS % (AUTO) 0.3 % (0-3); EOSINOPHILS % (AUTO) 0.9 % (0-5); MONOCYTES % (AUTO) 18.8 % (4-12); Mean Corpuscular Volume 88.9 fL (81-100); NEUTROPHILS % (AUTO) 65.6 % (40-74); Platelet Count 409 bil/L (150-400)
[2016-09-02 02:21] LABS: INR 1.12 ratio
[2016-09-02 02:29] LABS: Magnesium 1.6 mg/dL (1.6-2.6); Phosphorus 3.2 mg/dL (2.5-4.9)
--- NOTE | 2016-09-02 04:41 | NUR ---
Chest tube / mentation / low urine output Chest tube draining freely, wall suction engaged. Dressing clean and dry. GEOPHYSICAL PROSPECTING PERMIT AGENT set up early in evening, pt did not use any until early hours of am. Pt was very confused and disoriented for several hours after chest tube placement despite not using GEOPHYSICAL PROSPECTING PERMIT AGENT; suspect Ambien after sedation medications contributed to disorientation. Bed alarm on for safety. O2 needs fluctuated through night, pt on pulse ox and O2 titrated from 3-5 L to keep sat > 92%. By 0430 pt remembered confusion and is now feeling clearer, GEOPHYSICAL PROSPECTING PERMIT AGENT in minimal use for pain management. Hourly rounding ongoing.
--- NOTE | 2016-09-02 07:31 | OP ---
[address] [address] OPERATIVE REPORT PATIENT: ADALI TILLEY : 1950 MR#: [id number] ADMIT: 08/31/2016 JOB ID: [id number] DATE OF SURGERY: 09/01/2016 PREOPERATIVE DIAGNOSIS(ES): Malignant left pleural effusion. POSTOPERATIVE DIAGNOSIS(ES): Malignant left pleural effusion. PROCEDURE: Left tube thoracostomy. SURGEON: Zaid Cano MD INDICATIONS: A 65-year-old woman with unresectable left lung cancer with a malignant pleural effusion. I am asked to place a chest tube to facilitate anticipated pleurodesis. FINDINGS: A 32-Portuguese chest tube placed without complications. The patient had 1800 cc of maroon nonclotting pleural fluid removed. PROCEDURE: The procedure was performed at the bedside with conscious sedation. Informed consent was obtained. Surgical time-out was performed. The left chest was prepped and draped in sterile fashion. The patient received intravenous Versed and fentanyl per the record; 35 cc of 1% lidocaine with epinephrine was used for local anesthesia. We made an incision just above the left inframammary crease just anterior to the anterior axillary line. We tunneled down to the rib, and after appropriate local regional anesthetic, entered the pleural cavity bluntly. We obtained a rodriguez of bloody pleural fluid and I was able to place a 32-Portuguese chest tube without difficulty into the pleural space and advanced it toward the apex. It was placed to suction and we obtained initial output of 1800 cc of fluid. The chest tube was secured with a nylon suture and then dressed. The patient tolerated the procedure well and post procedure chest x-ray demonstrated the tube in good position with significant reduction of hemothorax.
[2016-09-02] MEDS ORDERED: Magnesium Sulf 4 Gm/100 mL H2O 4 GM in IV Premix 1 EACH IV ONE (08:20)
[2016-09-02] MEDS: oxyCODONE ER 20 mg ER12 Tablet PO PRN ×2 (09:54→19:58)
[2016-09-02] MEDS ORDERED: 0.9% Sodium Chloride 500 ML IV ONE (12:15)
[2016-09-02] MEDS ORDERED: Furosemide 10 mg/mL 2 mL Inj IV ONE ×2 (12:15→12:40)
[2016-09-02] MEDS ORDERED: Furosemide 10 mg/mL 2 mL Inj IV PRN (12:15)
--- NOTE | 2016-09-02 14:00 | NUR ---
Urine output, mentation Pt with severely decreased UOP. Bladder scan showed 70mL. She is also confused, intermittently disoriented and family report hallucinations. Pt states she is having trouble closing her hands. COMMUNITY REPRESENTATIVE dilaudid button removed from pt. paged and assessed pt at bedside. Orders for fluid bolus, PRBC and lasix. Blood drawn for type and cross-match, continue to monitor.
--- NOTE | 2016-09-02 14:44 | PCM.PNSURG ---
Subjective Visit Information: Reason for Visit Left Pleural Effusion,Stage Iv Adca Lung Surgery/Surgery Date Post-Op Day # Date of Admission: Aug 31, 2016 at 17:11 Hospital Day # Subjective: Chest tube placed last night. Initial drainage 1600mL. Additional drainage 325mL today. No air leak. Feels less short of breath. Has not been out of bed. CXR from 0539 today was personally reviewed with the radiologist. Her left lung is partially expanded but there appears to still be a fair quantity of fluid at the base. Chest tube is in excellent position. Objective Vital Sign- Last 8 Hours Date Time Temp Pulse Resp B/P Pulse Ox O2 Delivery O2 Flow Rate FiO2 09/02/16 12:27 36.3 97 16 102/67 95 Nasal Cannula 4.00 09/02/16 07:15 Supplement Oxygen Intake and Output- Last 8 Hour 09/02/16 Cumulative From/Thru 07:00 08/31/16 13:48 - 09/02/16 05:46 Intake Total 336 ml 2322 ml Output Total 475 ml 2850 ml Balance -139 ml -528 ml Intake Oral 200 ml 1100 ml IV Total 136 ml 1222 ml Output Urine Total 150 ml 900 ml Chest Tube Drainage Total 325 ml 1950 ml # Bowel Movements 0 General: Cooperative, No Acute Distress, Other (appears tired/frail) Lungs: Other (clear at apices) Heart: Regular Rate/Rhythm Chest: Left chest tube is in good position without bends/kinks. No air leak. Serosanguinous fluid in pleuravac. Result Diagram: 09/02/16 0155 09/02/16 1335 Assessment & Plan Impression 65yof with left malignant pleural effusion in setting of Stage IV left lung cancer. Chest tube was placed last night. The lung shows good initial expansion but there is still additional drainage that needs to occur before pleural apposition is achieved. Problems: Plan -Continue drainage via chest tube. -I recommended an attempt at Trendelenburg positioning, discussed with pt/family /RN, as this may help with additional drainage given the location of the holes in the chest tube near the apex. All parties understand and agree with additional changes in position such as sitting/laying. -The family DOES NOT want this patient to suffer any additional unnecessary pain given her frail condition, poor prognosis, and current pain she is experiencing. For this reason the daughter in particular insists that any pleurodesis be performed under anesthesia, even if it is chemical pleurodesis with a sclerosing agent. -The family's understanding/expectation is that it may take several days, even until Monday or later, before adequate apposition has been achieved. -I have placed an NPO at midnight order and will order CXR for the am. Resuscitation Status: CPR: Attempt Resuscitation Rosemarie Robles MD Sep 02, 2016 14:44
--- NOTE | 2016-09-02 15:00 | DRSVH ---
PROCEDURE: US GUIDED THORACENTESIS BY REFERRING PHYSICIAN ([id number]) INDICATIONS: recurrent malignant pleural effusion TECHNIQUE: The indications, alternatives, benefits, risks, and complications of the procedure were explained to the patient. Written informed consent was obtained and placed in the chart. The chest was examined sonographically, and an appropriate site was chosen for thoracentesis. The skin was prepared and debi ped in the usual sterile fashion, and 1% lidocaine was infiltrated from the skin down through the ple ural surface. A 19-gauge catheter-covered needle was then introduced into the pleural space, the cat heter was advanced and the needle was withdrawn, and thereafter pleural fluid was aspirated. The cat heter was then removed and a dressing was applied. The attending physician was present, and personal ly performed the procedure. COMPARISON: [facility], , US GUIDED THORACENTESIS, 08/26/2016, 16:46. FINDINGS: Access site: Left hemithorax. Needle: One-Step centesis catheter with introducer needle. Fluid volume and description: 80 cc of bloody pleural fluid was evacuated and the pleural effusion is multiloculated Fluid sent for diagnostic testing: Therapeutic drainage. Medications: 1% lidocaine for local anaesthesia. Complications: None; post-procedural chest radiograph is pending to assess for pneumothorax. IMPRESSION: Successful ultrasound-guided thoracentesis. Dictated by: Lior LÓPEZ Interpreted: Gabi Masters MD on 09/02/2016 at 14:59 Transcribed by: IRASEMA on 09/02/2016 at 15:00 Approved by: Gabi Masters MD, PhD on 09/05/2016 at 8:45
[2016-09-02] MEDS: 0.9% Sodium Chloride 250 ML IV SCH ×2 (16:44→21:00)
[2016-09-02] MEDS: Dextrose 5% 500 ML IV SCH (19:19)
[2016-09-02] MEDS: levoFLOXacin 750 mg Tablet PO SCH (19:58)
[2016-09-02] MEDS ORDERED: Furosemide 10 mg/mL 2 mL Inj ONE ×2 (20:40→23:53)
--- NOTE | 2016-09-02 21:33 | CCS NOTE ---
[facility] [address], [address] [address] MEDICAL ONCOLOGY OFFICE NOTE PATIENT: ADALI TILLEY : 1950 MR#: [id number] DATE: 08/31/2016 JOB ID: [id number] DATE: HISTORY OF PRESENT ILLNESS: The patient is a pleasant 65-year-old lady with lung adenocarcinoma as a never smoker with malignant pericardial effusion at presentation one year ago. She is admitted for reaccumulation of left pleural effusion. I had just seen her a few days ago in the clinic. For details of this, please refer to my notes of that day. She was supposed to have a repeat thoracentesis on , September 01, after I saw her on August 30, but was not able to make it to that because of increasing shortness of breath and came to the ER yesterday and was found to be quite hypoxic. I had already made a referral to Interventional Radiology for consideration of PleurX catheter. I spoke with Lior Hilton of Radiology yesterday, and they were not able to, at this time, drain much of the bloody fluid due to multi loculation and thickness of the fluid. This despite the fact that just a few days ago on August 26, her first tap was quite successful with drainage of 1700 cc. In this setting, it was not felt that a PleurX catheter can be helpful as it would plug up fairly quickly due to small diameter. I contacted Dr. Cano of Surgery as well as the patient and recommended a chest tube placement and pleurodesis. Dr. Cano kindly performed the chest tube placement last night. I met with the family today and the patient. She is also more anemic than usual with hemoglobin dropping to 7.6, and she is very pale. PHYSICAL EXAMINATION: On exam, her vitals are stable, afebrile. Lungs clear to auscultation. Heart regular. Abdomen is soft. DATA: Lab studies reviewed. ASSESSMENT AND PLAN: A 65-year-old lady with stage IV lung adenocarcinoma diagnosed one year ago. For details, please refer to my notes of August 30 when I saw her in the office. Unfortunately, her recurrent, left malignant pleural effusion has made her quite symptomatic, and it was not drainable by thoracentesis in a short interval after it was drained just last Monday due to the development of loculations and blood involvement and thickness of the fluid. I have in spoken with multiple specialties involved, and the conclusion was to proceed with chest tube, which was placed last night by Dr. Cano of Surgery. I think she would re-accumulate the fluid quickly; therefore, a pleurodesis is advisable for palliative reasons. Her chemotherapy is currently on hold. The patient's anemia has gotten worse, and I spoke with the hospitalist team, and I agree to proceed with transfusion of two units of blood. Her urine output has been low but her creatinine is normal, and I think it is due to volume depletion likely. We talked about her prognosis. 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 The patient is, at this point, not ready to transition to hospice, and I think that discussion, however, can be revisited in near future. TIME SPENT WITH PATIENT: Approximately one hour and five minutes were spent in counseling and coordination of care.
--- NOTE | 2016-09-02 22:24 | PCM.PNMED ---
Subjective Date of Service Sep 02, 2016 Subjective The patient is tolerating the chest tube well. 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 Nurses concerned about the patient's low urine output. Exam Vital Signs Vital Sign - Last Date Time Temp Pulse Resp B/P Pulse Ox O2 Delivery O2 Flow Rate FiO2 09/02/16 21:15 36.6 96 16 107/76 09/02/16 19:26 93 Nasal Cannula 4.00 Intake and Output 09/01/16 09/01/16 09/02/16 Cumulative From/Thru 15:00 23:00 07:00 08/31/16 13:48 - 09/02/16 05:46 Intake Total 1316 ml 336 ml 2322 ml Output Total 1925 ml 475 ml 2850 ml Balance -609 ml -139 ml -528 ml Intake Oral 500 ml 200 ml 1100 ml IV Total 816 ml 136 ml 1222 ml Output Urine Total 300 ml 150 ml 900 ml Chest Tube Drainage Total 1625 ml 325 ml 1950 ml # Bowel Movements 0 0 Exam General: Patient is in no apparent distress lying supine in bed. She is somewhat cachectic HEENT: Head is atraumatic and normocephalic. Eyes: Pupils are equally round and reactive to light and accommodation. Extraocular muscles are intact. Sclera are white, anicteric. Subconjunctival mucosa is pale. Ears and nose are unremarkable. Oropharynx: There are no mucosal lesions, there is no pharyngitis. There does appear to be some thrush. Neck: Is supple, there are no nodes, or masses or tenderness. Chest: There is marked decreased breath sounds of the left lung. There is a chest tube in good position on the left. The chest tube dressing is clean dry and intact. Heart: Rate, rhythm is regular. There is no murmur, rub or gallop. Abdomen: Good bowel sounds are present. Abdomen is soft, nontender, no organomegaly or masses were appreciated. Extremities: Are symmetrical and well perfused. There is no edema, there is no cellulitis, no rash. Neurologic: There are no focal neurological deficits. Cranial nerves II through XII are intact. There are no sensory or motor deficits. Psychiatric: Patients mood is calm and she shows no sign of agitation. Genital: Deferred Rectal: Deferred Lab and Diagnostics Result Diagram: 09/02/16 0155 09/02/16 1335 Microbiology Blood cultures are negative 2 so far X-Rays, CTs and MRIs CXR concurrently reviewed by myself shows the Port-A-Cath in place on the left and a pleural effusion that picks up at least half the left lung cavity CT chest 08/25 1. Exam is negative for pulmonary embolic disease. 2. Left upper lobe lung cancer is progressively smaller in size. 3. Left pleural effusion has increased markedly in volume, causing apparent atelectasis in the lingula and left lower lobe. There is also patchy infiltrate in the left lower lobe which may represent pneumonia. Dictated by: Eitan Marsh M.D. on 08/25/2016 at 15:29 PROCEDURE: X-RAY CHEST ONE VIEW, PORTABLE ([id number]) INDICATIONS: dyspnea TECHNIQUE: One view of the chest was acquired. COMPARISON: [facility], CR, XR CHEST 1VW (PORTABLE), 08/25/2016, 13: 49. FINDINGS: Surgical changes and devices: Stable positioning of left subclavian chest port. Lungs and pleura: Moderate to large left pleural effusion redemonstrated intense mid left lung and basilar opacification Lungs clear. Mediastinum: Mediastinal contours appear normal. Heart size is normal. Bones and chest wall: No suspicious bony lesions. Overlying soft tissues appear unremarkable. IMPRESSION: Left pleural effusion redemonstrated and mid/basilar airspace opacity consistent with compressive atelectasis, pneumonia or underlying neoplasm. Dictated by: Lior Hilton RRA Interpreted: Gabi Masters MD on 08/31/2016 at 14:39 Transcribed by: IRASEMA on 08/31/2016 at 14:45 Approved by: Gabi Masters MD, PhD on 08/31/2016 at 17:15 Assessment & Plan The patient is a 65-year-old female with recurrent malignant pleural effusion who came into [facility] emergency room because she was dyspneic admitted because of respiratory failure. Her INR was still 1.7 today so procedure was held. The plan was to just let her INR taper down and do the procedure 09/01 at 2:30 PM when it was previously scheduled, unfortunately 10 mg of vitamin K was given IV in the emergency room before I saw the patient and while I am certain that this will more than sufficiently reverse her warfarin, it will take a while to reverse this and get her INR back to therapeutic after the procedure. # Acute respiratory failure-secondary to recurrent malignant pleural effusion -Thoracentesis yielded only 3 mL of thick fluid. -Patient likely to require VATS or chest tube placement or both -The patient has been scheduled for a Pleurx catheter around 09/07. # Possible pneumonia- by CT scan 08/25 "possible "pneumonia - We will continue current antibiotics until her 10 day treatment course has been completed. # Oral thrush - Continue Diflucan therapy. # The patient has been anticoagulated for a DVT, in September 2015, gastronemius/ peroneal- since this was a year ago and distal do not see a need to bridge this patient before resuming warfarin, consider discussing with her primary oncologist Dr. Lord -Likely to have a hypercoagulable state due to her lung cancer # Acute blood loss Anemia-with the patient's hemoglobin steadily dropping from 10.9 08/16, to 9.9 08/30, 2 9.0 08/31, to 7.6/.1 - Therefore 2 units of packed red blood cells were ordered for the patient. Discussed with Dr. Lord and he agreed with this plan - We will check anemia panel ordered # Leukocytosis-improving with Levaquin -Will continue to complete 10 day course # Prophylaxis-DVT we will place SCDs, no anticoagulation due to acute blood loss anemia. Disposition-plan is for pleurodesis of the left lung either this or Monday and discharge planning after that. Dr. Christiano Guzman to follow in a.m. Pain Evaluation: Adequate Pain Control VTE Mechanical Devices: Intermittant Pneumatic CD Resuscitation Status: CPR: Attempt Resuscitation Jett Cordero MD Sep 02, 2016 22:24
[2016-09-03 00:09] VITALS: BP 109/68; PULSE 98; RESP 16
--- NOTE | 2016-09-03 00:36 | NUR ---
Blood Completion Patient completed first unit of PRBC (hung on day shift) around 2039. VSS. No a/e noted. Lasix 20mg IVP given after completion per MD orders. Second unit of PRBC hung around 2099. Blood double check/verification performed with second RN prior to hanging. Verified blood consent form signed. VSS during/after transfusion. Tolerated well, no a/e noted. Last dose of Lasix 20mg IVP given after completion.
[2016-09-03 04:40] VITALS: BP 105/70; PULSE 82; RESP 18; O2SAT 96
[2016-09-03 05:32] LABS: BASOPHILS % (AUTO) 0.4 % (0-3); EOSINOPHILS % (AUTO) 1.3 % (0-5); MONOCYTES % (AUTO) 13.8 % (4-12); Mean Corpuscular Hemoglobin 29.1 pg (27.0-35.0); Mean Corpuscular Volume 85.8 fL (81-100); NEUTROPHILS % (AUTO) 74.6 % (40-74); Platelet Count 362 bil/L (150-400)
--- NOTE | 2016-09-03 08:26 | NUR ---
XRAY/Meds Off unit to Xray at 0800. Pt A&Ox3, ESQUIVEL - gen weakness, IVF infusing via PORT, on 4L NC, Chest Tube dressing CDI - placed on water seal sx for tx, No c/o pain. Left unit via w/c - chart with pt. Returned at 0806 - back to bed. CPOx in place - 4L NC, Chest tube to wall sx at med cx sx, IV infusing, Heather in place. Meds: Pt NPO for possible procedure - went over morning medications. Pt stated needing to have something on her stomach, wanting to wait to admin at this time. Call light in reach, care continues.
--- NOTE | 2016-09-03 08:27 | DRSVH ---
PROCEDURE: X-RAY CHEST ONE VIEW ([id number]) INDICATIONS: chest tube TECHNIQUE: One view of the chest was acquired. COMPARISON: [facility], CR, XR CHEST 1VW, 09/01/2016, 15:45. [facility], CR, XR CHEST 1VW, 08/26/2016, 17:40. [facility], CR, XR CHEST 1VW, 06/01/2016, 14:03. FINDINGS: Surgical changes and devices: Left-sided portacatheter, tip of which is in the upper SVC. Left chest tube. Lungs and pleura: No pneumothorax. Decreased, [id number] left pleural effusion. No change in moderate patchy multifocal bilateral pulmonary opacities. Mediastinum: Mediastinal contours appear normal. Heart size is normal. Bones and chest wall: No suspicious bony lesions. Overlying soft tissues appear unremarkable. IMPRESSION: 1. Decreasing left pleural effusion following left chest tube placement. 2. No change in multifocal pneumonia. Dictated by: Nancy Barron M.D. on 09/03/2016 at 8:20 Approved by: Nancy Barron M.D. on 09/03/2016 at 8:21
[2016-09-03] MEDS: oxyCODONE ER 20 mg ER12 Tablet PO PRN (11:29)
[2016-09-03 12:30] VITALS: O2SAT 97
--- NOTE | 2016-09-03 12:49 | PROG NOTE ---
[address] [address] PROGRESS NOTE PATIENT: ADALI TILLEY : 1950 MR#: [id number] ADMIT: 08/31/2016 JOB ID: [id number] DATE: 09/03/2016 SUBJECTIVE: The patient remains afebrile. Her chest tube put out 325 mL yesterday and continues to put out bloody pleural fluid. Her chest x-ray is mildly improved today, with less fluid per radiology read, but unchanged from yesterday to my eye. PLAN: I have outlined the following plan with her: We will continue -20 cm of suction on her chest tube today, repeat her chest x-ray in the morning. If her chest x-ray in the morning does not show complete resolution of the left pleural effusion, I will instill tPA into her chest tube tomorrow. We will then see how things look on Monday or Monday and decide whether she will be able to go to the OR for simple pleurodesis or whether consideration should be given for thoracoscopic cleanout of her pleural space prior to pleurodesis.
[2016-09-03 14:49] VITALS: BP 101/66; PULSE 91; RESP 18; O2SAT 94
--- NOTE | 2016-09-03 14:49 | NUR ---
NUTRITION ASSESSMENT: ASSESS:65 YO female with nonoperative left lung cancer, recently diagnosed with malignant pleural effusion. This was tapped once, and there were plans to place a PleurX catheter. However, recent tap of her left chest revealed bloody fluid, and it was felt that she would benefit more from a chest tube placement and pleurodesis. Pleurodesis tentatively scheduled for Monday. She is tolerating the chest tube but is anorexic, taking minimal PO. She has had nearly 4 kg weight loss since 07/05/16 (2 months) = 6.53%. Code status: full. PMHx: Stage 4 left-sided lung cancer diagnosed September 2015; history of malignant pericardial effusion with tamponade requiring pericardial drainage; DVT in the right leg, on Coumadin until earlier this week, status post breast biopsy; history of Port-A-Cath; appendectomy, . DIET:General. PO intake 0 - 50% trays. LABS: Reviewed. BUN 7, Cr 0.46, Glu 121, A1c 5.2, Alb 2.6. MEDICATIONS: Reviewed. NUTRITION FOCUSED PHYSICAL ASSESSMENT: GI symptoms / stool: None reported.Javier: 16. Skin Integrity: No issues reported. ANTHROPOMETRICS: Current Wt: 56.36 kgBMI: 21.0 kg/m2.Admit weight: 56.36 kg IBW: 54.5 kg (103.3% IBW) ESTIMATED NEEDS (CANCER): Calories: 1409 - 1973 kcal (25 - 35 kcal / kg BW) Protein: 85 - 113 g protein (1.5 - 2.0 g / kg BW) Fluid: Approx. 1973 mL (35 mL / kg BW) NUTRITION DIAGNOSIS: 1)Inadequate oral intake related to inability to consume sufficient energy, as evidenced by poor PO intake since admit x 3 D, progressive weight loss. INTERVENTION: 1) Will add Ensure to trays. MONITOR/EVALUATE: Diet advance / tolerance, PO intake, labs, GI/nutrition status. Follow up per moderate nutrition risk guidelines.
[2016-09-03] MEDS: Dextrose 5% 500 ML IV SCH (17:10)
--- NOTE | 2016-09-03 17:53 | PCM.PNMED ---
Subjective Date of Service Sep 03, 2016 Subjective She is seen today in follow-up of lung cancer and possible pneumonia. Malignant pleural effusion has been the sticking point.. She is doing reasonably well without new complaints. Exam Vital Signs Vital Sign - Last Date Time Temp Pulse Resp B/P Pulse Ox O2 Delivery O2 Flow Rate FiO2 09/03/16 08:29 Supplement Oxygen 09/03/16 04:40 36.3 82 18 105/70 96 4.00 Intake and Output 09/02/16 09/02/16 09/03/16 Cumulative From/Thru 15:00 23:00 07:00 08/31/16 13:48 - 09/03/16 05:24 Intake Total 1725 ml 1538 ml 5585 ml Output Total 320 ml 1000 ml 4170 ml Balance 1405 ml 538 ml 1415 ml Intake Oral 600 ml 200 ml 1900 ml IV Total 825 ml 1038 ml 3085 ml Packed Cells 300 ml 300 ml 600 ml Output Urine Total 200 ml 900 ml 2000 ml Chest Tube Drainage Total 1950 ml Drainage Total 120 ml 100 ml 220 ml # Voids 1 1 # Bowel Movements 0 0 Exam General: Patient is in no apparent distress lying supine in bed. She is somewhat cachectic HEENT: Head is atraumatic and normocephalic. Chest: There is marked decreased breath sounds of the left lung with diffuse crackles. There is a chest tube in good position on the left. The chest tube dressing is clean dry and intact. Breathing is clear on the right Heart: Rate, rhythm is regular. There is no murmur, rub or gallop. Extremities: Are symmetrical and well perfused. There is no edema, there is no cellulitis, no rash. Neurologic: There are no focal neurological deficits. Psychiatric: Patients mood is calm and she shows no sign of agitation. Her is visiting and does his best to assist but has a poor memory from his own medical problems. Lab and Diagnostics Result Diagram: 09/03/16 0505 09/03/16 0505 Microbiology Blood cultures are negative 2 so far X-Rays, CTs and MRIs CXR concurrently reviewed by myself shows the Chest Tube in Place on the left. X-RAY CHEST ONE VIEW ([id number]) INDICATIONS: chest tube TECHNIQUE: One view of the chest was acquired. COMPARISON: [facility], CR, XR CHEST 1VW, 09/01/2016, 15:45. [facility], CR, XR CHEST 1VW, 08/26/2016, 17:40. [facility], CR, XR CHEST 1VW, 06/01/2016, 14:03. FINDINGS: Surgical changes and devices: Left-sided portacatheter, tip of which is in the upper SVC. Left chest tube. Lungs and pleura: No pneumothorax. Decreased, [id number] left pleural effusion. No change in moderate patchy multifocal bilateral pulmonary opacities. Mediastinum: Mediastinal contours appear normal. Heart size is normal. Bones and chest wall: No suspicious bony lesions. Overlying soft tissues appear unremarkable. IMPRESSION: 1. Decreasing left pleural effusion following left chest tube placement. 2. No change in multifocal pneumonia. Dictated by: Nancy Barron M.D Assessment & Plan The patient is a 65-year-old female with recurrent malignant pleural effusion who came into [facility] emergency room because she was dyspneic admitted because of respiratory failure. # Acute respiratory failure-secondary to recurrent malignant pleural effusion -Chest tube was placed with significant drainage of the pleural effusion. -She is now pending pleurodesis by general surgery this weekend. # Possible pneumonia- by CT scan 08/25 "possible "pneumonia - We will continue current antibiotics until her 10 day treatment course has been completed. # Oral thrush - Continue Diflucan therapy. # The patient has been anticoagulated for a DVT, in September 2015, gastronemius/ peroneal- since this was a year ago and distal do not see a need to bridge this patient before resuming warfarin, consider discussing with her primary oncologist Dr. Lord -Likely to have a hypercoagulable state due to her lung cancer # Acute blood loss Anemia-with the patient's hemoglobin steadily dropping from 10.9 08/16, to 9.9 08/30, 2 9.0 08/31, to 7.6/29.1 - Therefore 2 units of packed red blood cells were given yesterday with a resulting hemoglobin of 12.3 today. # Leukocytosis-improving with Levaquin, now down to 10.5. -Will continue to complete 10 day course # Prophylaxis-DVT we will place SCDs, no anticoagulation due to acute blood loss anemia. Disposition-plan is for pleurodesis of the left lung either this or Monday and discharge planning after that. VTE Mechanical Devices: Intermittant Pneumatic CD Resuscitation Status: CPR: Attempt Resuscitation Maxwell Guzman MD Sep 03, 2016 10:32
[2016-09-03] MEDS: 0.9% Sodium Chloride 250 ML IV SCH (18:18)
[2016-09-03 20:00] VITALS: RESP 18; O2SAT 96
[2016-09-03] MEDS: levoFLOXacin 750 mg Tablet PO SCH (21:15)
[2016-09-03 21:30] VITALS: BP 118/65; PULSE 100; RESP 16; O2SAT 92
[2016-09-04] VITALS (8 sets, daily range): BP systolic 101–118; BP diastolic 66–78; PULSE 91–96; RESP 16–18; O2SAT 91–97
[2016-09-04 05:46] LABS: BASOPHILS % (AUTO) 0.4 % (0-3); EOSINOPHILS % (AUTO) 2.6 % (0-5); MONOCYTES % (AUTO) 16.8 % (4-12); Mean Corpuscular Hemoglobin 28.9 pg (27.0-35.0); Mean Corpuscular Volume 87.2 fL (81-100); NEUTROPHILS % (AUTO) 66.4 % (40-74); Platelet Count 356 bil/L (150-400)
--- NOTE | 2016-09-04 07:20 | NUR ---
Respiratory Left Chest Tube in situ. Pt denies SOB. Pain tolerable without meds. 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 No overt complications noted.
--- NOTE | 2016-09-04 07:40 | DRSVH ---
PROCEDURE: X-RAY CHEST ONE VIEW, PORTABLE ([id number]) INDICATIONS: 65 year-old female with left pleural effusion. TECHNIQUE: One view of the chest was acquired. COMPARISON: [facility], CT, CT ANGIO CHEST PE, 08/25/2016, 14:59. [facility] , CR, XR CHEST 1VW, 09/03/2016, 7:49. [facility], CR, XR CHEST 1VW (PORTABLE), 09/02/2016, 5:39. [facility], CR, XR CHEST 1VW (PORTABLE), 09/01/2016, 19:41. FINDINGS: Surgical changes and devices: Left chest wall Port-A-Cath is again noted. Left pleural drain remains unchanged and in expected position. Lungs and pleura: Moderate residual basal left pleural effusion is unchanged. No pneumothorax. Patchy bilateral upper lung opacities persist. Mediastinum: Mediastinal contours appear normal. Cardiac silhouette is partially obscured by left pl eural effusion. Bones and chest wall: No suspicious bony lesions. Overlying soft tissues appear unremarkable. IMPRESSION: 1. Left chest tube remains in expected position, with no change in residual moderate basal left pleur al effusion. 2. Patchy bilateral upper lung scarring is again noted. Dictated by: Melvin Dalton M.D. on 09/04/2016 at 7:36 Approved by: Melvin Dalton M.D. on 09/04/2016 at 7:39
[2016-09-04] MEDS ORDERED: Alteplase (Cathflo) 1 mg/mL 2 mL Inj INTRACATH ONE (07:45)
[2016-09-04] MEDS ORDERED: SODIUM CHLORIDE 0.9% IRRIGATION ONE (07:55)
[2016-09-04] MEDS ORDERED: ALTEPLASE IRRIGATION ONE (07:55)
[2016-09-04] MEDS: oxyCODONE ER 20 mg ER12 Tablet PO PRN ×2 (08:34→19:55)
--- NOTE | 2016-09-04 12:03 | PCM.PNMED ---
Subjective Date of Service Sep 04, 2016 Subjective She continues to have pleuritic chest tube pain. Her SOB is stable. The plan is for a TPA infusion today. Her labs are stable. Exam Vital Signs Vital Sign - Last Date Time Temp Pulse Resp B/P Pulse Ox O2 Delivery O2 Flow Rate FiO2 09/04/16 06:45 36.8 91 18 109/72 94 Nasal Cannula 4.00 Intake and Output 09/03/16 09/03/16 09/04/16 Cumulative From/Thru 15:00 23:00 07:00 08/31/16 13:48 - 09/04/16 06:45 Intake Total 1133 ml 640 ml 7358 ml Output Total 450 ml 660 ml 5280 ml Balance 683 ml -20 ml 2078 ml Intake Oral 1000 ml 400 ml 3300 ml IV Total 133 ml 240 ml 3458 ml Packed Cells 600 ml Output Urine Total 350 ml 600 ml 2950 ml Chest Tube Drainage Total 100 ml 2050 ml Drainage Total 60 ml 280 ml # Voids 2 3 # Bowel Movements 0 0 0 Exam General: Patient is in no apparent distress lying supine in bed. She is somewhat cachectic HEENT: Head is atraumatic and normocephalic. Chest: There is marked decreased breath sounds of the left lung with diffuse crackles. There is a chest tube in good position on the left. The chest tube dressing is clean dry and intact. Breathing is clear on the right Heart: Rate, rhythm is regular. There is no murmur, rub or gallop. Extremities: Are symmetrical and well perfused. There is no edema, there is no cellulitis, no rash. Neurologic: There are no focal neurological deficits. Psychiatric: Patients mood is calm and she shows no sign of agitation. Lab and Diagnostics Result Diagram: 09/04/16 0510 09/04/16 0510 Microbiology Blood cultures are negative 2 so far X-Rays, CTs and MRIs CXR concurrently reviewed by myself shows the Chest Tube in Place on the left. X-RAY CHEST ONE VIEW ([id number]) INDICATIONS: chest tube TECHNIQUE: One view of the chest was acquired. COMPARISON: [facility], CR, XR CHEST 1VW, 09/01/2016, 15:45. [facility], CR, XR CHEST 1VW, 08/26/2016, 17:40. [facility], CR, XR CHEST 1VW, 06/01/2016, 14:03. FINDINGS: Surgical changes and devices: Left-sided portacatheter, tip of which is in the upper SVC. Left chest tube. Lungs and pleura: No pneumothorax. Decreased, [id number] left pleural effusion. No change in moderate patchy multifocal bilateral pulmonary opacities. Mediastinum: Mediastinal contours appear normal. Heart size is normal. Bones and chest wall: No suspicious bony lesions. Overlying soft tissues appear unremarkable. IMPRESSION: 1. Decreasing left pleural effusion following left chest tube placement. 2. No change in multifocal pneumonia. Dictated by: Nancy Barron M.D Assessment & Plan The patient is a 65-year-old female with recurrent malignant pleural effusion who came into [facility] emergency room because she was dyspneic admitted because of respiratory failure. # Acute respiratory failure-secondary to recurrent malignant pleural effusion -Chest tube was placed with significant drainage of the pleural effusion. Today 's CXR shows no further improvement in the pleural effusion. -She is now pending TPA infusion and if not successful then pleurodesis by general surgery in the next few days. # Possible pneumonia- by CT scan 08/25 "possible "pneumonia - We will continue current antibiotics until her 10 day treatment course has been completed. # Oral thrush - Continue Diflucan therapy. # The patient has been anticoagulated for a DVT, in September 2015, gastronemius/ peroneal- since this was a year ago and distal do not see a need to bridge this patient before resuming warfarin, consider discussing with her primary oncologist Dr. Lord -Likely to have a hypercoagulable state due to her lung cancer # Acute blood loss Anemia-with the patient's hemoglobin steadily dropping from 10.9 08/16, to 9.9 08/30, 2 9.0 08/31, to 7.6/29.1 - Therefore 2 units of packed red blood cells were given 2 days ago with a resulting hemoglobin of 12.3, now down to 11.5 today. # Leukocytosis-improving with Levaquin, now down to 8.6. -Will continue to complete 10 day course # Prophylaxis-DVT we will place SCDs, no anticoagulation due to acute blood loss anemia. Disposition-plan is for pleurodesis as above and discharge planning after that. Pain Evaluation: Adequate Pain Control VTE Mechanical Devices: Intermittant Pneumatic CD Resuscitation Status: CPR: Attempt Resuscitation Maxwell Guzman MD Sep 04, 2016 08:00
--- NOTE | 2016-09-04 14:18 | NUR ---
Social Work- Readiness for Discharge Data: EMR reviewed. Pt is on day 4 of hospitalization for Left Pleural Effusion and Stage IV ADCA Lung per H&P. Pt to receive pleurodosis Monday, anticipate discharge after procedure. Patient's clinical will be faxed to [facility] once patient is closer to discharge. F2F in folder. Pt to discharge home with family to transport via POV. SW will continue to follow. Assessment: Pt who would benefit from [facility] RN. Plan: Patient to discharge home with [facility] RN. F2F in folder. Pt to discharge home with family to transport via POV. SW will continue to follow. ARLENE Huthcison
[2016-09-04] MEDS: 0.9% Sodium Chloride 250 ML IV SCH (14:44)
--- NOTE | 2016-09-04 16:35 | PROG NOTE ---
[address] [address] PROGRESS NOTE PATIENT: ADALI TILLEY : 1950 MR#: [id number] ADMIT: 08/31/2016 JOB ID: [id number] DATE: The patient's chest x-ray remains unchanged. The chest tube put out 100 cc over the previous [address] tPA in her pleural space with the hopes of mobilizing the nondraining fluid in preparation of pleurodesis. I discussed this with her and her family versus the option of simply moving ahead with plans for a thoracoscopic clean out. At this point, we will try the tPA.
--- NOTE | 2016-09-04 17:17 | NUR ---
tPA injection At 1300, Dr. Cano present at bedside to instill alteplase through chest tube. with 60cc luer lock syringe and 18g needle, tonya up dose received from pharmacy, disconnected tube from drainage system and instilled ~40cc before tube began to overfill. Chest tube reconnected to drainage system and secured with pink tape. Clamped for 2hrs. At 1700, unclamped and reconnected to wall suction. Milked tubing, clots noted. Pt stating no change in breathing pattern or pain. Brother at bedside. Pt appearing comfortable at rest. Call light in reach. Care continues.
[2016-09-04] MEDS: Dextrose 5% 500 ML IV SCH (19:51)
[2016-09-04] MEDS: levoFLOXacin 750 mg Tablet PO SCH (19:55)
[2016-09-05] VITALS (10 sets, daily range): BP systolic 95–124; BP diastolic 60–85; PULSE 90–104; RESP 16–18; O2SAT 91–96
--- NOTE | 2016-09-05 05:50 | PCM.PNMED ---
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 She was on clears earlier today but Dr. Ferrari has met with the patient in the room and explained why and what procedure he would like to perform for pleurodesis with talc tomorrow. He also set expectations regarding success or failure of such procedures. Patient is endorsing weakness but denies fevers, chills, diarrhea, nausea. She is agreeable to going to the OR tomorrow. No other concerns. Exam Vital Signs Vital Sign - Last Date Time Temp Pulse Resp B/P Pulse Ox O2 Delivery O2 Flow Rate FiO2 09/05/16 01:32 18 94 09/04/16 20:40 Supplement Oxygen 09/04/16 20:11 36.7 96 101/66 4.00 Intake and Output 09/04/16 09/04/16 09/05/16 Cumulative From/Thru 15:00 23:00 07:00 08/31/16 13:48 - 09/04/16 20:40 Intake Total 1000 ml 8358 ml Output Total 400 ml 5680 ml Balance 600 ml 2678 ml Intake Oral 1000 ml 4300 ml IV Total 3458 ml Packed Cells 600 ml Output Urine Total 2950 ml Chest Tube Drainage Total 2050 ml Drainage Total 400 ml 680 ml # Voids 2 5 # Bowel Movements 0 0 Exam General: Thin appearing, NAD HEENT: Normocephalic, atraumatic, negative for JVD Heart: Slightly tachycardic, regular Lungs: B/L crackles noted L>R. Neg for wheezing Abd: Flat, non-tender, normal bowel sounds Neuro: No focal deficits Psych: Neg for anxiety Skin: No erythema noted at the chest tube site around the dressings IVs and Medications Medications Reviewed: Medications were reviewed in detail Lab and Diagnostics CBC Test 09/01/16 02:00 09/05/16 05:37 Reticulocyte Count,Calculated 3.4% (0.6-2.6) White Blood Count 9.1th/mm3 (3.8-10.1) Red Blood Count 4.28mil/mm3 (3.90-5.20) Hemoglobin 12.4g/dL (12.0-15.6) Hematocrit 37.5% (35.0-46.0) Mean Corpuscular Volume 87.6fL (81-100) Mean Corpuscular Hemoglobin 29.0pg (27.0-35.0) Mean Corpuscular Hemoglobin Concent 33.1% (32.0-37.0) Red Cell Distribution Width 17.3% (12.3-15.4) Platelet Count 370bil/L (150-400) Neutrophils (%) (Auto) 70.5% (40-74) Lymphocytes (%) (Auto) 10.2% (14-46) Monocytes (%) (Auto) 15.4% (4-12) Eosinophils (%) (Auto) 2.7% (0-5) Basophils (%) (Auto) 0.4% (0-3) CMP Test 08/31/16 14:50 09/01/16 02:00 09/02/16 01:55 09/05/16 05:37 Lactic Acid Level 1.7mmol/L Iron Level 30ug/dL Total Iron Binding Capacity 155ug/dL Percent Iron Saturation 19%sat Unsaturated Iron Binding 124.7ug/dL Ferritin 313ng/mL Lactate Dehydrogenase 164U/L Vitamin B12 Level 672pg/mL Phosphorus Level 3.2mg/dL Magnesium Level 1.6mg/dL Sodium Level 136mEq/L Potassium Level 4.0mEq/L Chloride Level 99mEq/L Carbon Dioxide Level 26mmol/L Blood Urea Nitrogen 8mg/dL Creatinine 0.38mg/dL Estimat Glomerular Filtration Rate 245mL/min Glucose Level 111mg/dL Calcium Level 8.1mg/dL Total Bilirubin 0.4mg/dL Aspartate Amino Transf (AST/SGOT) 15U/L Alanine Aminotransferase (ALT/SGPT) 7U/L Alkaline Phosphatase 84U/L Total Protein 4.8g/dL Albumin 2.0g/dL Result Diagram: 09/04/16 0510 09/04/16 0510 Microbiology Blood cultures are negative 2 so far X-Rays, CTs and MRIs CXR concurrently reviewed by myself shows the Chest Tube in Place on the left. X-RAY CHEST ONE VIEW ([id number]) INDICATIONS: chest tube TECHNIQUE: One view of the chest was acquired. COMPARISON: [facility], CR, XR CHEST 1VW, 09/01/2016, 15:45. [facility], CR, XR CHEST 1VW, 08/26/2016, 17:40. [facility], CR, XR CHEST 1VW, 06/01/2016, 14:03. FINDINGS: Surgical changes and devices: Left-sided portacatheter, tip of which is in the upper SVC. Left chest tube. Lungs and pleura: No pneumothorax. Decreased, [id number]-gl-jmuzdrmo left pleural effusion. No change in moderate patchy multifocal bilateral pulmonary opacities. Mediastinum: Mediastinal contours appear normal. Heart size is normal. Bones and chest wall: No suspicious bony lesions. Overlying soft tissues appear unremarkable. IMPRESSION: 1. Decreasing left pleural effusion following left chest tube placement. 2. No change in multifocal pneumonia. Patient Name: ADALI TILLEY MR#: [id number] Location: [facility] Ordering Phys: Johanna Islas DO Date of Service: 09/05/16 1031 PROCEDURE: CT CHEST WITH CONTRAST ([id number]) INDICATIONS: f/u Left pleural effusion s/p chest tube TECHNIQUE: After the administration of intravenous contrast, 5 mm thick sections acquired from the pulmonary apices to the posterior costophrenic angles. 7 mm thick coronal and sagittal MIP reformats were acquired. For radiation dose reduction , the following was used: automated exposure control, adjustment of mA and/or kV according to patient size. COMPARISON: [facility], CT, CT ANGIO CHEST PE, 08/25/2016, 14:59. [facility], CT, CT CHEST W CON, 10/28/2015, 8:23. FINDINGS: Image quality: Excellent. Lungs and pleura: There is a new left-sided chest tube with the tip extending to the superior segment of the left lower lobe in the apex. There is marked decrease in the large pleural effusion seen on the prior study. There is a residual moderate amount of pleural fluid as well as a small amount of hydropneumothorax. There are also areas of loculated pleural fluid including along the left apex. There is improved aeration of the left lung with bindery assistant consolidation in the left lower lobe and left lingula inferiorly as well as linear areas of presumed compressive atelectasis. Within the left upper lobe at the apex, there is an irregular mass redemonstrated, measuring approximately 3.7 x 2.0 cm in transverse dimension, similar in appearance compared to the recent study given differences in technique. There is pleural thickening and enhancement along the left hemithorax. On the right, there is a moderate size right pleural effusion which is new compared to the prior study with associated compressive atelectasis. There are also peribronchial areas of consolidation and groundglass opacities in the right lung with an apical predominance. The trachea and central airways are patent. Mediastinum: There is a left chest wall subclavian Port-A-Cath with the tip extending into the superior vena cava. Heart size is normal. No pericardial effusion. There is hilar soft tissue fullness suggestive of lymphadenopathy bilaterally with encasement and narrowing of left perihilar structures. Thoracic aorta and central pulmonary arteries are normal in size. Esophagus is normal in caliber. No hiatal hernia. Bones and chest wall: There are a few scattered sclerotic lesions in the spine including the C7 vertebral body consistent with metastatic disease. No vertebral body compression fractures. No axillary or supraclavicular adenopathy by size criteria. Thyroid gland demonstrates no discrete nodules. Abdomen: Visualized upper abdominal solid organs appear normal. Upper abdominal bowel loops are normal in caliber. IMPRESSION: 1. Decrease in size of left pleural effusion status post chest tube placement. There is persistent moderate right pleural fluid with areas of loculation as well as a small hydropneumothorax. 2. Left pleural thickening and enhancement suspicious for metastatic disease. 3. Irregular left apical mass consistent with history of lung cancer similar in size to the recent prior study. Dictated by: Nancy Barron M.D Assessment & Plan The patient is a 65-year-old female with recurrent malignant pleural effusion who came into [facility] emergency room because she was dyspneic admitted because of respiratory failure. # Acute respiratory failure-secondary to recurrent malignant pleural effusion -Chest tube was placed with significant drainage of the pleural effusion. Yesterday's CXR shows no further improvement in the pleural effusion. CT Chest this AM showed some improvement but also some right sided effusion -She is now pending TPA infusion and if not successful then pleurodesis by general surgery in the next few days: She will go to the OR tomorrow # Possible pneumonia- by CT scan 08/25 "possible "pneumonia - We will continue current antibiotics until her 10 day treatment course has been completed: This is completed # Oral thrush - Continue Diflucan therapy. # The patient has been anticoagulated for a DVT, in September 2015, gastronemius/ peroneal- since this was a year ago and distal do not see a need to bridge this patient before resuming warfarin, consider discussing with her primary oncologist Dr. Lord -Likely to have a hypercoagulable state due to her lung cancer. # Acute blood loss Anemia-with the patient's hemoglobin steadily dropping from 10.9 08/16, to 9.9 08/30, 2 9.0 /, to 7.6/29.1 - Therefore 2 units of packed red blood cells were given 2 days ago with a resulting hemoglobin of 12.3, now 12.4 today. # Leukocytosis-improving with Levaquin, now down to 8.6. -Will continue to complete 10 day course: Done # Prophylaxis-DVT we will place SCDs, no anticoagulation due to acute blood loss anemia. Disposition-plan is for pleurodesis as above and discharge planning after that. Pain Evaluation: Adequate Pain Control GI Prophylaxis: Not indicated VTE Mechanical Devices: Intermittant Pneumatic CD Resuscitation Status: CPR: Attempt Resuscitation Indy Schuler DO Sep 05, 2016 05:50
[2016-09-05 06:01] LABS: BASOPHILS % (AUTO) 0.4 % (0-3); EOSINOPHILS % (AUTO) 2.7 % (0-5); MONOCYTES % (AUTO) 15.4 % (4-12); Mean Corpuscular Volume 87.6 fL (81-100); NEUTROPHILS % (AUTO) 70.5 % (40-74); Platelet Count 370 bil/L (150-400)
--- NOTE | 2016-09-05 06:18 | NUR ---
Activity Pt rating pain to left chest up to 5/10 and took OxyContin and Ambien per eMAR at bedtime. Pt also has MUD BOSS but reported not needing to use it at all during the shift. Left side chest tube dressing reinforced with tape, has been attached to wall suction and put out 350cc sanguinous drainage in 12 hours. Pt continues on 4L humidified O2 with CPOx 92-93% O2 sats.
[2016-09-05] MEDS: oxyCODONE ER 20 mg ER12 Tablet PO PRN ×2 (09:22→21:32)
--- NOTE | 2016-09-05 09:53 | PCM.PNSURG ---
Subjective Date of Service: Sep 05, 2016 Visit Information: Reason for Visit: Left Pleural Effusion,Stage Iv Adca Lung Surgery/Surgery Date: Chest tube placement on 09/02/16 Post-Op Day #3 Date of Admission: Aug 31, 2016 at 17:11 Hospital Day #5 Subjective: Pain well controlled but patient expresses concerns regarding any additional procedures. She notes significant discomfort and GI upset with procedures but is amenable to the treatment options discussed. She reports chest discomfort secondary to the chest tube. Denies shortness of breath, abdominal pain, n/v. Ambulating and voiding without difficulty. Pain Management: IV Push Objective Vital Sign- Last 8 Hours Date Time Temp Pulse Resp B/P Pulse Ox O2 Delivery O2 Flow Rate FiO2 09/05/16 06:28 36.9 90 18 104/60 94 Nasal Cannula 4.00 09/05/16 05:25 16 92 Intake and Output- Last 8 Hour 09/05/16 Cumulative From/Thru 07:00 08/31/16 13:48 - 09/05/16 06:28 Intake Total 701 ml 9059 ml Output Total 350 ml 6030 ml Balance 351 ml 3029 ml Intake Oral 600 ml 4900 ml IV Total 101 ml 3559 ml Packed Cells 600 ml Output Urine Total 2950 ml Chest Tube Drainage Total 2050 ml Drainage Total 350 ml 1030 ml # Voids 2 7 # Bowel Movements 0 0 General: Alert, Oriented X3 Lungs: Diminished (decreased breath sounds on left, chest tube in good position /dressing C/D/I) Abdomen: Soft, Non-tender, Non-distended Extremities: Distal Pulses Palpable, Warm (no edema) Neuro: Grossly Neurologically Intact Result Diagram: 09/05/16 0537 09/05/16 0537 Assessment & Plan Impression 65yof with left malignant pleural effusion in setting of Stage IV left lung cancer s/p chest tube placement on 09/02/16 now one day s/p tPA injection (09/04/16 ) with ~350mls chest tube output in last 24hrs. Problems: Plan -Continue drainage via chest tube. -Repeat chest x-ray this morning, if no significant improvement of the left pleural effusion, will repeat Chest CT. -Discussed risks, benefits and treatment options with the patient including simple pleurodesis or VATS procedure with evacuation of pleural space prior to pleurodesis. -Patient reports significant pain and discomfort with previous procedures and requests that any additional procedures be performed under anesthesia, even if it is chemical pleurodesis with a sclerosing agent. I interviewed and examined the pt, and I agree with Dr. Islas's assessment and plan. Likely proceed to VATS and talc pleurodesis. Resuscitation Status: CPR: Attempt Resuscitation Johanna Islas DO Sep 05, 2016 09:53 Alek Ferrari MD Sep 08, 2016 14:12
--- NOTE | 2016-09-05 10:01 | DRSVH ---
PROCEDURE: X-RAY CHEST ONE VIEW, PORTABLE ([id number]) INDICATIONS: 65 year-old woman with left pleural effusion. TECHNIQUE: One view of the chest was acquired. COMPARISON: [facility], CR, XR CHEST 1VW (PORTABLE), 04/03/2016, 21:50. [facility], CR, XR CHEST 1VW (PORTABLE), 09/01/2016, 19:41. [facility], CR, XR CHEST 1VW, 10/2016, 7:49. [facility], CR, XR CHEST 1VW (PORTABLE), 09/04/2016, 5:28. FINDINGS: Surgical changes and devices: Left chest wall Port-A-Cath is again noted. Left pleural drain remains unchanged and in expected position. Lungs and pleura: Moderate residual basal left pleural effusion is unchanged. Airspace opacity again seen within the right upper and left upper lobes as well as the right lung base. Mediastinum: Mediastinal contours appear normal. Cardiac silhouette is partially obscured by left pl eural effusion. Bones and chest wall: No suspicious bony lesions. Overlying soft tissues appear unremarkable. IMPRESSION: 1. Stable position of left chest tube with no significant change in residual moderate left basilar pl eural effusion. 2. Multifocal pneumonia. Dictated by: Lior Hilton [facility] Interpreted: Jassi Roy MD on 09/05/2016 at 9:56 Transcribed by: EVE on 09/05/2016 at 9:59 Approved by: Jassi Roy M.D. on 09/05/2016 at 11:28
--- NOTE | 2016-09-05 13:43 | NUR ---
Social Work-Continued Discharge Planning Data & Assessment: EMR reviewed. Pt is on day 5 of hospitalization for Left Pleural Effusion and Stage IV ADCA Lung per H&P. Patient was discussed in daily rounds and physician anticipates that the patient will receive pleurodosis today and possibly discharge tomorrow. Patient's clinical was to [facility] ishan Gurrola stated that [facility] will not beable to start care on patient until 08/31/16. Patient notified patient and patient's family and patient wants to keep [facility]. Pt to discharge home with family to transport via POV. SW will continue to follow. Plan: Patient to discharge home with [facility] RN and NEGATIVE RETOUCHER. Pt to discharge home with family to transport via POV. SW will continue to follow. Mariluz Cruz, JASON, ACM
[2016-09-05] MEDS: 0.9% Sodium Chloride 250 ML IV SCH ×2 (14:20→16:22)
[2016-09-05] MEDS: Dextrose 5% 500 ML IV SCH (15:49)
[2016-09-05] MEDS ORDERED: HYDROmorphone PCA 0.2 mg/mL 30 mL Inj IV PRN (16:10)
--- NOTE | 2016-09-05 16:25 | DRSVH ---
PROCEDURE: CT CHEST WITH CONTRAST ([id number]) INDICATIONS: f/u Left pleural effusion s/p chest tube TECHNIQUE: After the administration of intravenous contrast, 5 mm thick sections acquired from the pulmonary api marlo to the posterior costophrenic angles. 7 mm thick coronal and sagittal MIP reformats were acquire d. For radiation dose reduction, the following was used: automated exposure control, adjustment of mA and/or kV according to patient size. COMPARISON: [facility], CT, CT ANGIO CHEST PE, 08/25/2016, 14:59. [facility] , CT, CT CHEST W CON, 10/28/2015, 8:23. FINDINGS: Image quality: Excellent. Lungs and pleura: There is a new left-sided chest tube with the tip extending to the superior segmen t of the left lower lobe in the apex. There is marked decrease in the large pleural effusion seen on the prior study. There is a residual moderate amount of pleural fluid as well as a small amount of hydropneumothorax. There are also areas of loculated pleural fluid including along the left apex. Th ere is improved aeration of the left lung with insurance legal assistant consolidation in the left lower lobe and lef t lingula inferiorly as well as linear areas of presumed compressive atelectasis. Within the left up per lobe at the apex, there is an irregular mass redemonstrated, measuring approximately 3.7 x 2.0 cm in transverse dimension, similar in appearance compared to the recent study given differences in talat hnique. There is pleural thickening and enhancement along the left hemithorax. On the right, there is a moderate size right pleural effusion which is new compared to the prior study with associated co mpressive atelectasis. There are also peribronchial areas of consolidation and groundglass opacities in the right lung with an apical predominance. The trachea and central airways are patent. Mediastinum: There is a left chest wall subclavian Port-A-Cath with the tip extending into the super ior vena cava. Heart size is normal. No pericardial effusion. There is hilar soft tissue fullness suggestive of lymphadenopathy bilaterally with encasement and narrowing of left perihilar structures. Thoracic aorta and central pulmonary arteries are normal in size. Esophagus is normal in caliber. No hiatal hernia. Bones and chest wall: There are a few scattered sclerotic lesions in the spine including the C7 vert ebral body consistent with metastatic disease. No vertebral body compression fractures. No axillary or supraclavicular adenopathy by size criteria. Thyroid gland demonstrates no discrete nodules. Abdomen: Visualized upper abdominal solid organs appear normal. Upper abdominal bowel loops are nor mal in caliber. IMPRESSION: 1. Decrease in size of left pleural effusion status post chest tube placement. There is persistent moderate right pleural fluid with areas of loculation as well as a small hydropneumothorax. 2. Left pleural thickening and enhancement suspicious for metastatic disease. 3. Irregular left apical mass consistent with history of lung cancer similar in size to the recent p rior study. 4. New irregular peribronchial areas of consolidation and ground glass opacities in the right lung. The findings are nonspecific and may represent pneumonia, drug reaction, or hemorrhage. Recommend c orrelation clinically and short-term followup as indicated. 5. New moderate size right pleural effusion with compressive atelectasis. 6. Bilateral hilar soft tissue fullness suggestive of lymphadenopathy with associated bronchovascula r encasement and narrowing on the left. 7. Sclerotic lesions consistent metastatic disease demonstrated in the spine. Findings are similar to the prior study. Dictated by: Napoleon Best M.D. on 09/05/2016 at 16:12 Approved by: Napoleon Best M.D. on 09/05/2016 at 16:23
--- NOTE | 2016-09-05 19:17 | NUR ---
Chest tube Chest tube left chest. Dressing reinforced. Some discharge noted when pt is coughing. Continuous suction and water seal. Pt ambulates to bathroom with 2 assist as she is slightly unsteady at times. Care continues
--- NOTE | 2016-09-05 20:02 | CCS NOTE ---
[facility] [address] [address] MEDICAL ONCOLOGY OFFICE NOTE PATIENT: ADALI TILLEY : 1950 MR#: [id number] DATE: 08/31/2016 JOB ID: [id number] CORRECTED REPORT: DATE: 09/05/2016 SUBJECTIVE: The patient continued to have residual fluid and complex loculated effusion on the left side. The events over the weekend [facility] She is requiring 2-3 L of oxygen to keep O2 sat above 90%. Her appetite and nutrition has been relatively poor and, as a result, her albumin is dropping to now 2.0. She is likely also losing some degree of protein through the malignant effusion and its drainage. She has been having some discomfort in the left chest. Otherwise, minimally ambulatory in the room. Her abdomen is soft. Extremities show no edema. Vitals are stable in regard to blood pressure and afebrile. ASSESSMENT: A 65-year-old lady with advanced lung adenocarcinoma with no prior history of smoking. She is in the process of preparation for a pleurodesis for a loculated and nondraining malignant pleural effusion that required a chest tube placement. Per surgical notes, tPA is administered to try to mobilize some of the blood-clot associated fluid that is not draining. If the evacuation is not successful with the current strategy, an arthroscopic evacuation might become before pleurodesis. This is then up to our surgical colleagues. I answered some of the patient's questions. The family was not present today at bedside. Corrected by CARLOS MANUEL 10/27/16 at 11:55am Account number.
[2016-09-05] MEDS: levoFLOXacin 750 mg Tablet PO SCH (21:31)
[2016-09-06] VITALS (21 sets, daily range): BP systolic 97–126; BP diastolic 58–71; PULSE 102–112; RESP 13–20; O2SAT 89–96
--- NOTE | 2016-09-06 05:52 | PCM.PNMED ---
Subjective Date of Service Sep 06, 2016 Subjective Patient has undergone the talc pleurodesis today and resting in the room, She appears groggy and did not remember having the procedure. She is conversing and appears to be comfortable. She has a Y shaped tube know evacuating two different regions on the left side. Exam Vital Signs Vital Sign - Last Date Time Temp Pulse Resp B/P Pulse Ox O2 Delivery O2 Flow Rate FiO2 09/06/16 01:00 18 93 09/05/16 21:33 Supplement Oxygen 09/05/16 20:44 36.4 104 124/85 4.00 Intake and Output 09/05/16 09/05/16 09/06/16 Cumulative From/Thru 15:00 23:00 07:00 08/31/16 13:48 - 09/05/16 21:33 Intake Total 1697 ml 60389 ml Output Total 660 ml 6690 ml Balance 1037 ml 4066 ml Intake Oral 1600 ml 6500 ml IV Total 97 ml 3656 ml Packed Cells 600 ml Output Urine Total 300 ml 3250 ml Chest Tube Drainage Total 2050 ml Drainage Total 360 ml 1390 ml # Voids 1 8 # Bowel Movements 0 Exam General: resting in bed HEENT: NAD Heart: RRR, no s3/s4 murmurs Lungs: Masked by tube drainage on left, right side has no wheezes Abd: Flat, non tender Neuro: Appears groggy Psych: neg for anxiety IVs and Medications IV Fluids none Medications Reviewed: Medications were reviewed in detail Lab and Diagnostics Laboratory Tests Test 09/06/16 05:45 09/06/16 15:19 White Blood Count 10.1th/mm3 (3.8-10.1) Red Blood Count 4.20mil/mm3 (3.90-5.20) Hemoglobin 12.1g/dL (12.0-15.6) Hematocrit 36.8% (35.0-46.0) Mean Corpuscular Volume 87.6fL (81-100) Mean Corpuscular Hemoglobin 28.8pg (27.0-35.0) Mean Corpuscular Hemoglobin Concent 32.9% (32.0-37.0) Red Cell Distribution Width 16.9% (12.3-15.4) Platelet Count 372bil/L (150-400) Neutrophils (%) (Auto) 73.6% (40-74) Lymphocytes (%) (Auto) 8.4% (14-46) Monocytes (%) (Auto) 15.4% (4-12) Eosinophils (%) (Auto) 1.6% (0-5) Basophils (%) (Auto) 0.3% (0-3) Prothrombin Time 11.0sec (8.1-12.5) Prothromb Time International Ratio 1.03ratio Sodium Level 137mEq/L (134-144) Potassium Level 4.0mEq/L (3.5-5.2) Chloride Level 99mEq/L (97-108) Carbon Dioxide Level 25mmol/L (18-29) Blood Urea Nitrogen 10mg/dL (8-27) Creatinine 0.41mg/dL (0.57-1.00) Estimat Glomerular Filtration Rate 224mL/min (>59) Glucose Level 110mg/dL (60-99) Calcium Level 8.1mg/dL (8.5-10.1) Total Bilirubin 0.4mg/dL (0.0-1.2) Aspartate Amino Transf (AST/SGOT) 14U/L (0-50) Alanine Aminotransferase (ALT/SGPT) 6U/L (0-32) Alkaline Phosphatase 83U/L (25-165) Total Protein 4.9g/dL (6.4-8.4) Albumin 2.1g/dL (3.4-5.0) Urine Color Dark yellow (YELLOW) Urine Appearance Clear (CLEAR,HAZY) Urine pH 6.0 (5.0-8.0) Urine Specific [place] >1.030 (1.003-1.035) Urine Protein Negativemg/dL (NEG,TRACE) Urine Glucose (UA) Negativemg/dL (NEGATIVE) Urine Ketones Tracemg/dL (NEGATIVE) Urine Occult Blood Negative (NEGATIVE) Urine Nitrite Negative (NEGATIVE) Urine Bilirubin Negative (NEGATIVE) Urine Urobilinogen Normalmg/dL (NORMAL) Urine Leukocyte Esterase Negative (NEGATIVE) Urine RBC 0-2/hpf (0-2) Urine WBC 0-5/hpf (0-5) Urine Epithelial Cells Few/hpf (NONE-MOD) Urine Crystals None seen (NONE SEEN) Urine Bacteria Few/hpf (NONE-FEW) Urine Hyaline Casts None/lpf (NONE) Urine Granular Casts None seen (NONE SEEN) Urine Waxy Casts None seen (NONE SEEN) Urine Red Blood Cell Casts None seen (NONE SEEN) Urine White Blood Cell Casts None seen (NONE SEEN) Urine Mucus None seen (None Seen) Urine Trichomonas None seen (NONE SEEN) Urine Yeast None (NONE SEEN) Urinalysis Comment None Urine Culture Reflexed Not indicated Microbiology 08/31/16 Blood Culture - Final, Resulted NO GROWTH AFTER 5 DAYS 08/31/16 Blood Fungal Culture, Resulted Pending Intake and Output 09/05/16 09/05/16 09/06/16 Cumulative From/Thru 15:00 23:00 07:00 08/31/16 13:48 - 09/06/16 06:26 Intake Total 1697 ml 492 ml 86653 ml Output Total 660 ml 430 ml 7120 ml Balance 1037 ml 62 ml 4128 ml Intake Oral 1600 ml 375 ml 6875 ml IV Total 97 ml 117 ml 3773 ml Packed Cells 600 ml Output Urine Total 300 ml 350 ml 3600 ml Chest Tube Drainage Total 2050 ml Drainage Total 360 ml 80 ml 1470 ml # Voids 1 1 9 # Bowel Movements 0 0 Result Diagram: 09/05/16 0537 09/05/16 0537 Microbiology Blood cultures are negative 2 so far X-Rays, CTs and MRIs CXR concurrently reviewed by myself shows the Chest Tube in Place on the left. X-RAY CHEST ONE VIEW ([id number]) INDICATIONS: chest tube TECHNIQUE: One view of the chest was acquired. COMPARISON: [facility], CR, XR CHEST 1VW, 09/01/2016, 15:45. [facility], CR, XR CHEST 1VW, 08/26/2016, 17:40. [facility], CR, XR CHEST 1VW, 06/01/2016, 14:03. FINDINGS: Surgical changes and devices: Left-sided portacatheter, tip of which is in the upper SVC. Left chest tube. Lungs and pleura: No pneumothorax. Decreased, [id number] left pleural effusion. No change in moderate patchy multifocal bilateral pulmonary opacities. Mediastinum: Mediastinal contours appear normal. Heart size is normal. Bones and chest wall: No suspicious bony lesions. Overlying soft tissues appear unremarkable. IMPRESSION: 1. Decreasing left pleural effusion following left chest tube placement. 2. No change in multifocal pneumonia. Patient Name: ADALI TILLEY#: [id number] Location: [facility] Ordering Phys: Johanna Islas DO Date of Service: 09/05/16 1031 PROCEDURE: CT CHEST WITH CONTRAST ([id number]) INDICATIONS: f/u Left pleural effusion s/p chest tube TECHNIQUE: After the administration of intravenous contrast, 5 mm thick sections acquired from the pulmonary apices to the posterior costophrenic angles. 7 mm thick coronal and sagittal MIP reformats were acquired. For radiation dose reduction , the following was used: automated exposure control, adjustment of mA and/or kV according to patient size. COMPARISON: [facility], CT, CT ANGIO CHEST PE, 08/25/2016, 14:59. [facility], CT, CT CHEST W CON, 10/28/2015, 8:23. FINDINGS: Image quality: Excellent. Lungs and pleura: There is a new left-sided chest tube with the tip extending to the superior segment of the left lower lobe in the apex. There is marked decrease in the large pleural effusion seen on the prior study. There is a residual moderate amount of pleural fluid as well as a small amount of hydropneumothorax. There are also areas of loculated pleural fluid including along the left apex. There is improved aeration of the left lung with blood donor unit assistant consolidation in the left lower lobe and left lingula inferiorly as well as linear areas of presumed compressive atelectasis. Within the left upper lobe at the apex, there is an irregular mass redemonstrated, measuring approximately 3.7 x 2.0 cm in transverse dimension, similar in appearance compared to the recent study given differences in technique. There is pleural thickening and enhancement along the left hemithorax. On the right, there is a moderate size right pleural effusion which is new compared to the prior study with associated compressive atelectasis. There are also peribronchial areas of consolidation and groundglass opacities in the right lung with an apical predominance. The trachea and central airways are patent. Mediastinum: There is a left chest wall subclavian Port-A-Cath with the tip extending into the superior vena cava. Heart size is normal. No pericardial effusion. There is hilar soft tissue fullness suggestive of lymphadenopathy bilaterally with encasement and narrowing of left perihilar structures. Thoracic aorta and central pulmonary arteries are normal in size. Esophagus is normal in caliber. No hiatal hernia. Bones and chest wall: There are a few scattered sclerotic lesions in the spine including the C7 vertebral body consistent with metastatic disease. No vertebral body compression fractures. No axillary or supraclavicular adenopathy by size criteria. Thyroid gland demonstrates no discrete nodules. Abdomen: Visualized upper abdominal solid organs appear normal. Upper abdominal bowel loops are normal in caliber. IMPRESSION: 1. Decrease in size of left pleural effusion status post chest tube placement. There is persistent moderate right pleural fluid with areas of loculation as well as a small hydropneumothorax. 2. Left pleural thickening and enhancement suspicious for metastatic disease. 3. Irregular left apical mass consistent with history of lung cancer similar in size to the recent prior study. Dictated by: Nancy Barron M.D Assessment & Plan The patient is a 65-year-old female with recurrent malignant pleural effusion who came into [facility] emergency room because she was dyspneic admitted because of respiratory failure. # Acute respiratory failure-secondary to recurrent malignant pleural effusion -Chest tube was placed with significant drainage of the pleural effusion. Yesterday's CXR shows no further improvement in the pleural effusion. CT Chest this AM showed some improvement but also some right sided effusion -She is now pending TPA infusion and if not successful then pleurodesis by general surgery in the next few days: She will go to the OR tomorrow : She underwent Video assisted pleurodesis on 09/06/16 # Possible pneumonia- by CT scan 08/25 "possible "pneumonia - We will continue current antibiotics until her 10 day treatment course has been completed: This is completed # Oral thrush - Continue Diflucan therapy. # The patient has been anticoagulated for a DVT, in September 2015, gastronemius/ peroneal- since this was a year ago and distal do not see a need to bridge this patient before resuming warfarin, consider discussing with her primary oncologist Dr. Lord -Likely to have a hypercoagulable state due to her lung cancer. # Acute blood loss Anemia-with the patient's hemoglobin steadily dropping from 10.9 08/16, to 9.9 08/30, 2 9.0 /, to 7.6/29.1 - Therefore 2 units of packed red blood cells were given 2 days ago with a resulting hemoglobin of 12.3, now 12.1 today. # Leukocytosis-improving with Levaquin, today 10.1. Levaquin was stopped -Will continue to complete 10 day course: Done # Prophylaxis-DVT we will place SCDs, no anticoagulation due to acute blood loss anemia. Disposition-plan is discharge after she shows improvement GI Prophylaxis: Not indicated VTE Mechanical Devices: Intermittant Pneumatic CD Resuscitation Status: CPR: Attempt Resuscitation Indy Schuler DO Sep 06, 2016 05:52
[2016-09-06] MEDS ORDERED: CeFAZolin Inj 2 GM in IV Premix 1 EACH IV ONE (06:00)
[2016-09-06 06:37] LABS: BASOPHILS % (AUTO) 0.3 % (0-3); EOSINOPHILS % (AUTO) 1.6 % (0-5); MONOCYTES % (AUTO) 15.4 % (4-12); Mean Corpuscular Hemoglobin 28.8 pg (27.0-35.0); Mean Corpuscular Volume 87.6 fL (81-100); NEUTROPHILS % (AUTO) 73.6 % (40-74); Platelet Count 372 bil/L (150-400)
--- NOTE | 2016-09-06 06:37 | NUR ---
Chest tube output Output from chest tube decreased significantly during night, suction continues. Pt reports easier breathing and less pain. Pt has not been out of bed this shift. Hourly rounding ongoing.
[2016-09-06 07:14] LABS: INR 1.03 ratio
--- NOTE | 2016-09-06 09:35 | NUR ---
apprentice cookglobal risk management director note: Patient is scheduled for her Pleurodesis today and then possible discharge. Patient will go home with [facility] per Pulverizer Operator. No care needs identified at this time. Will follow-up with patient after discharge home and address any care needs that may arise.
[2016-09-06] MEDS ORDERED: Talc, Intrapleural 4 Gm Powder PLEURAL ONE ×2 (09:55→10:15)
--- NOTE | 2016-09-06 10:57 | PCM.CONPAL ---
Date of Service Sep 06, 2016 Date of Hospital Admission: Aug 31, 2016 at 17:11 Date of Palliative Consult: Sep 06, 2016 Requesting Provider: Indy Schuler DO Comment: PCP Dr. Hall and oncologist Dr. Lord Reason Palliative Care Consult: Goals of Care Discussion Hospital Unit @time of consult: Orthopedic/Surgical Care ([id number]) Palliative Care Recommendation Summary of palliative recommendations: Symptom management (Pain/other): per attending team DPOA/Advanced Directives/POLST: Full code at this time. Family/emotional support: TBD Spiritual support: Patient Goals: TBD. Pt was away for lung procedure during most of day. Will make connection with her and family on 09/07. Additional Medical Diagnoses with primary management by Hospitalist team include : 1. Acute respiratory failure-secondary to recurrent malignant pleural effusion -Chest tube was placed with significant drainage of the pleural effusion. Yesterday's CXR shows no further improvement in the pleural effusion. CT Chest this AM showed some improvement but also some right sided effusion -She is now pending TPA infusion and if not successful then pleurodesis by general surgery in the next few days: She will go to the OR 09/06 2. Possible pneumonia- by CT scan 08/25 "possible "pneumonia - We will continue current antibiotics until her 10 day treatment course has been completed: This is completed 3. Oral thrush - Continue Diflucan therapy. 4. The patient has been anticoagulated for a DVT, in September 2015, gastronemius/ peroneal- since this was a year ago and distal do not see a need to bridge this patient before resuming warfarin, consider discussing with her primary oncologist Dr. Lord -Likely to have a hypercoagulable state due to her lung cancer. 5. Acute blood loss Anemia-with the patient's hemoglobin steadily dropping from 10.9 08/16, to 9.9 08/30, 2 9.0 /, to 7.6/29.1 - Therefore 2 units of packed red blood cells were given 2 days ago with a resulting hemoglobin of 12.3, now 12.4 today. 6. Leukocytosis-improving with Levaquin, now down to 8.6. -Will continue to complete 10 day course: Done 7. Prophylaxis-DVT we will place SCDs, no anticoagulation due to acute blood loss anemia. Problems: Resuscitation Status Resuscitation Status: CPR: Attempt Resuscitation Pt History History of Present Illness Mrs. Browning is a 65 y.o. F with Stage 4 adeno CA of lung with C7 bone mets and known left malignant effusion. She had a thoracentesis 08/26 with 1707cc out. Patient had increasing SOB following evening 08/27. Patient seen by her oncologist Dr. Lord 08/30/16 and on physical exam, she had decreased breath sounds on left consistent with reaccumulated fluid. Patient reported a two day history of worsening shortness of breath, associated with fever, non-productive cough, chest pain located across entire chest with radiation to back, nausea, vomiting. She was admitted 08/31/16 for management of acute SOB due to her large left malignant pleural effusion. Hospital Course: Dr. Cano placed a L Chest tube placed 09/01 with initial drainage 1600mL. Post procedure CXR shows partial re-expansion of left lung with fluid at base. IR could not do a successful drainage of remaining fluid due to multi-loculation and thickness of fluid, so it was felt that a PleurX catheter would not help her in future. Dr. Cano is taking her for pleurodesis today, 09/06. Per Dr. Lord, he is holding her chemotherapy and has recommended hospice to patient, but she was not ready for this. Dr. Lord is trying to obtain an oral chemotherapy agent (lapatinib) for her. Today is Hospital Day 6. Past Medical History Significant PMH Noted: stage IV left sided lung adenocarcinoma diagnosed September 11, 2015 malignant pericardial effusion with tamponade physiology requiring pericardial drain DVT blood clot in right leg (on Coumadin) anxiety Surgical History: 2 breast biopsies, Port-a-cath, Appendectomy, Family History: Father had lung cancer at a younger age but was able to live up to his 90s and also had colon cancer. He was a heavy smoker. Social History: Nondrinker, never smoker.Lives with locally. Her daughter is involved in supportive care. At baseline, she is ambulatory and independent in all ADLs. Medications Scheduled Folic Acid (Folic Acid) 1 Mg Tablet 1 MG PO DAILY Levofloxacin (Levaquin) 750 Mg Tablet 750 MG PO DAILY Oxycodone ER (Oxycontin) 20 Mg Tab.er.12h 20 MG PO HS Sertraline HCl (Sertraline) 50 Mg Tablet 150 MG PO DAILY Scheduled PRN Lorazepam (Ativan) 0.5 Mg Tablet 0.25 MG PO TID PRN PRN For Anxiety 1/2 tablet for nausea/anxiety/insomnia Metoclopramide (Metoclopramide) 5 Mg Tablet 5 MG PO QID PRN PRN For Nausea Ondansetron ODT (Zofran ODT) 4 Mg Tablet 4 MG PO Q4H PRN PRN For Nausea Zolpidem (Ambien) 10 Mg Tablet 10 MG PO HS PRN PRN For Insomnia Objective Findings Exam Vital Sign - Last Date Time Temp Pulse Resp B/P Pulse Ox O2 Delivery O2 Flow Rate FiO2 09/06/16 06:26 36.4 107 16 105/58 92 Nasal Cannula 4.00 Intake and Output 09/05/16 09/05/16 09/06/16 Cumulative From/Thru 15:00 23:00 07:00 08/31/16 13:48 - 09/06/16 06:26 Intake Total 1697 ml 492 ml 07680 ml Output Total 660 ml 430 ml 7120 ml Balance 1037 ml 62 ml 4128 ml Intake Oral 1600 ml 375 ml 6875 ml IV Total 97 ml 117 ml 3773 ml Packed Cells 600 ml Output Urine Total 300 ml 350 ml 3600 ml Chest Tube Drainage Total 2050 ml Drainage Total 360 ml 80 ml 1470 ml # Voids 1 1 9 # Bowel Movements 0 0 Lab/Diagnostics Lab and Diagnostics 09/05/16 0537 Microbiology Blood cultures are negative 2 so far X-Rays, CTs and MRIs CXR concurrently reviewed by myself shows the Chest Tube in Place on the left. X-RAY CHEST 09/05/16 1.Surgical changes and devices: Left-sided portacatheter, tip of which is in the upper SVC. Left chest tube. 2.Lungs and pleura: No pneumothorax. Decreased, [id number] left pleural effusion. No change in moderate patchy multifocal bilateral pulmonary opacities. 3. Mediastinum: Mediastinal contours appear normal. Heart size is normal. 4. Bones and chest wall: No suspicious bony lesions. Overlying soft tissues appear unremarkable. IMPRESSION: 1. Decreasing left pleural effusion following left chest tube placement. 2. No change in multifocal pneumonia. CT CHEST WITH CONTRAST 09/05/16 Lungs and pleura: There is a new left-sided chest tube with the tip extending to the superior segment of the left lower lobe in the apex. There is marked decrease in the large pleural effusion seen on the prior study. There is a residual moderate amount of pleural fluid as well as a small amount of hydropneumothorax. There are also areas of loculated pleural fluid including along the left apex. There is improved aeration of the left lung with regional administrative assistant consolidation in the left lower lobe and left lingula inferiorly as well as linear areas of presumed compressive atelectasis. Within the left upper lobe at the apex, there is an irregular mass re-demonstrated, measuring approximately 3.7 x 2.0 cm in transverse dimension, similar in appearance compared to the recent study given differences in technique. There is pleural thickening and enhancement along the left hemithorax. On the right, there is a moderate size right pleural effusion which is new compared to the prior study with associated compressive atelectasis. There are also peribronchial areas of consolidation and groundglass opacities in the right lung with an apical predominance. The trachea and central airways are patent. Mediastinum: There is a left chest wall subclavian Port-A-Cath with the tip extending into the superior vena cava. Heart size is normal. No pericardial effusion. There is hilar soft tissue fullness suggestive of lymphadenopathy bilaterally with encasement and narrowing of left perihilar structures. Thoracic aorta and central pulmonary arteries are normal in size. Esophagus is normal in caliber. No hiatal hernia. Bones and chest wall: There are a few scattered sclerotic lesions in the spine including the C7 vertebral body consistent with metastatic disease. No vertebral body compression fractures. No axillary or supraclavicular adenopathy by size criteria. Thyroid gland demonstrates no discrete nodules. Abdomen: Visualized upper abdominal solid organs appear normal. Upper abdominal bowel loops are normal in caliber. IMPRESSION: 1. Decrease in size of left pleural effusion status post chest tube placement. There is persistent moderate right pleural fluid with areas of loculation as well as a small hydropneumothorax. 2. Left pleural thickening and enhancement suspicious for metastatic disease. 3. Irregular left apical mass consistent with history of lung cancer similar in size to the recent prior study. Dictated by: Nancy Barron M.D Patient/Family Conference Discussion/Goals of Care Refer to Plan Section above. Time spent Total time 50 minutes; >50% face to face with patient and/or family, providing counselling regarding plans and recommendations, and in care coordination with his/her medical teams. Velia Arriola MD Sep 06, 2016 10:57 Velia Arriola MD Sep 06, 2016 10:57
--- NOTE | 2016-09-06 11:43 | NUR ---
Palliative Care Palliative Care received verbal order from Dr Cathi Schuler 09/06/16 to assist with goals of care. Patient is a 65 year old woman with recurrent malignant pleural effusion. She was admitted 08/31/16 with dyspnea and respiratory failure. Carola Kumar (sister) [phone] Chantel Tamiko (daughter) [phone] Palliative Care to follow. Miriam An
--- NOTE | 2016-09-06 12:50 | PCM.HPANE ---
Patient Data Date of Service: Sep 06, 2016 Surgeon Admitting Provider:Adin Bro MD Attending Provider:Adin Bro MD Primary Care Physician:Itzel Colon MD Other Provider: Reason for Visit Left Pleural Effusion,Stage Iv Adca Lung Ht/WT & BMI Height (Feet): 5 Height (Inches): 4.00 Weight (Kilograms): 56.500 Body Mass Index 21.21 Allergies Coded Allergies: No Known Allergies (Verified , 06/02/16) Past Anesthesia History Anesthesia History: Denies:: Anesthesia Reactions Diabetes History Hx Diabetes?: No MRSA MRSA: No Medications Blood Thinner: Coumadin Home Meds Incl Beta Rhea: No Active Scripts Ondansetron ODT (Zofran ODT)4 Mg Tablet4 Mg PO Q4H PRN For Nausea #14 TABLET Prov:Layo Cobb MD 08/25/16 Levofloxacin (Levaquin)750 Mg [id number] Mg PO DAILY #10 TABLET Prov:Layo Cobb MD 08/25/16 Reported Medications Zolpidem (Ambien)10 Mg Wycpuv41 Mg PO HS PRN For Insomnia Ref 0 08/30/16 Oxycodone ER (Oxycontin)20 Mg Tab.er.12h20 Mg PO HS 06/02/16 Lorazepam (Ativan)0.5 Mg Tablet0.25 Mg PO TID PRN For Anxiety 1/2 tablet for nausea/anxiety/insomnia 06/02/16 Metoclopramide 5 Mg Tablet5 Mg PO QID PRN For Nausea Ref 0 06/02/16 Sertraline HCl (Sertraline)50 Mg [id number] Mg PO DAILY 30 Days Ref 0 04/26/16 Folic Acid 1 Mg Tablet1 Mg PO DAILY 12/28/15 Discontinued Reported Medications Warfarin Sodium (Jantoven)6 Mg Tablet6 Mg PO DAILY 08/30/16 Aspirin 81 Mg [id number] Mg PO Evening 06/02/16 Lorazepam 0.5 Mg Tablet1 Mg PO HS PRN For Insomnia Ref 0 06/02/16 Warfarin Sodium 6 Mg Tablet6 Mg PO DAILY 08/30/16 Warfarin Sodium (Jantoven)5 Mg Tablet5 Mg PO DAILY #30 TABLET Ref 6 07/15/16 Ondansetron 8 Mg Tablet8 Mg PO BID 06/02/16 Discontinued Scripts Ibuprofen 800 Mg [id number] Mg PO TID PRN For Pain #42 TABLET Ref 0 Prov:Enrrique Carney 06/04/16 History History of ENT Problems?: No Hx of Heart Problems?: Yes Cardiovascular History: Positive for:: Chest Pain Denies:: Cardiac Surgery Congestive Heart Failure Edema Heart Murmur Hypertension Irregular Heartbeat Pacemaker Thrombophlebitis Other Cardiac History: h/o maliganant pericardial effusion with tamponade physiology requiring pericardial drain Hx of Respiratory Problem?: Yes Respiratory History: Positive for:: Asthma (stress induced) Dyspnea (due to fluid accumulation requiring thoracentesis) Pneumonia Denies:: Oxygen Administration Tuberculosis Use of C-PAP Machine Other Resp Pertinent History: stage 4 lt.sided lung adenocarcinoma diagnosed September 11, 2015 Hx Neurologic Problems?: Yes Neurological History: Positive for:: Dizziness Headaches Denies:: Alzheimer's Disease CVA Dementia Parkinson's Disease Seizures Hx of GI Problems?: No Hx of Problems?: Yes Genitourinary History: Positive for:: Urinary Tract Infection (RECURRENT BLADDER INFECTIONS) Denies:: Kidney Stones Female Hx: Denies:: Currently Endometriosis Pelvic Inflammatory Problems with Breasts? Skin History: Denies:: History Skin Disorders? Pressure Ulcers Hx Musculoskeletal Problems?: No Hx of Psycho/Social Problems?: Yes Psycho Social History: Positive for:: Anxiety (situational) Denies:: Bipolar Disorder Hx Depression Hx Surgeries?: Yes (C sec/appy, port-a-cath, 2 breast biopsies, thoracentesis) Hx Any Other Health Problems?: Yes Other History: Positive for:: Cancer (stage 4 lung ca) Hospitalization (september 2015- pericardial effusion/tamponade) Denies:: Thyroid Disease History Blood Transfusions: Positive for:: Accept Blood Products? Denies:: Blood Transfuse Reaction Blood Transfusions Hx Diabetes: No Hx Alcohol Use: NoHx Substance Use: No Smoking Status: Never Smoker Have You Smoked inLast 12 mo: No Stop/Bang Treated for Sleep Apnea?: No Do You Have a CPAP Machine?: No S-Snoring: Do You Snore Loudly: No T-Tired: feel tired, fatigued: Yes O-Obsered: Observed not breath: No P-Blood Pressure: treated: No B- Body Mass Index > 35 kg/m2: No A- Age over 50: Yes N- Neck Large Circumference: No G- Gender Male: No BRI Total Score: 1 BRI Risk Assessment: Low Risk, <3 Yes Risk Assessment Category Category 1A: Patient has history of documented sleep apnea, and HAS NOT received any narcotic, sedative or anesthesia administration during this stay. Category 1B: Patient has history of documented sleep apnea, and HAS received any narcotic , sedative or anesthesia administration during this stay Category 2: Patient has SUSPECTED Obstructive Sleep Apnea, and HAS received any narcotic , sedative or anesthesia administration during this stay. Category 3: Patient has SUSPECTED Obstructive Sleep Apnea and HAS NOT received narcotic, sedative or anesthesia administration during this stay. Category 4: Outpatient in Procedural Areas with known sleep apnea or who screen positive for High Risk via the STOP/BANG questionnaire. Exam Exam Vital Signs Vital Signs Date Time Temp Pulse Resp B/P Pulse Ox O2 Delivery O2 Flow Rate FiO2 09/06/16 06:26 36.4 107 16 105/58 92 Nasal Cannula 4.00 09/06/16 06:00 18 93 General Appearance: Alert, Oriented X3, Cooperative, Mild Distress (sob) HEENT/AIRWAY: MP 2 Lungs: Diminished Heart: Exam Unremarkable Meds/Labs/Diagnostics Labs Test 08/31/16 14:50 09/01/16 02:00 09/02/16 00:30 09/02/16 01:55 Lactic Acid Level 1.7mmol/L (0.4-2.0) Reticulocyte Count,Calculated 3.4% (0.6-2.6) Iron Level 30ug/dL (35-150) Total Iron Binding Capacity 155ug/dL (250-450) Percent Iron Saturation 19%sat (15-50) Unsaturated Iron Binding 124.7ug/dL Ferritin 313ng/mL (13-150) Lactate Dehydrogenase 164U/L (100-190) Vitamin B12 Level 672pg/mL (211-946) Urine Color Dark yellow (YELLOW) Urine Appearance Hazy (CLEAR,HAZY) Urine pH 5.5 (5.0-8.0) Urine Specific [place] 1.030 (1.003-1.035) Urine Protein Tracemg/dL (NEG,TRACE) Urine Glucose (UA) Negativemg/dL (NEGATIVE) Urine Ketones Negativemg/dL (NEGATIVE) Urine Occult Blood Negative (NEGATIVE) Urine Nitrite Negative (NEGATIVE) Urine Bilirubin Negative (NEGATIVE) Urine Urobilinogen 1.0mg/dL (NORMAL) Urine Leukocyte Esterase Negative (NEGATIVE) Urine RBC 0-2/hpf (0-2) Urine WBC 0-5/hpf (0-5) Urine Epithelial Cells Moderate/hpf (NONE-MOD) Urine Crystals None seen (NONE SEEN) Urine Bacteria Few/hpf (NONE-FEW) Urine Hyaline Casts None/lpf (NONE) Urine Granular Casts None seen (NONE SEEN) Urine Waxy Casts None seen (NONE SEEN) Urine Red Blood Cell Casts None seen (NONE SEEN) Urine White Blood Cell Casts None seen (NONE SEEN) Urine Mucus Present (None Seen) Urine Trichomonas None seen (NONE SEEN) Urine Yeast None (NONE SEEN) Urinalysis Comment None Urine Culture Reflexed Not indicated Phosphorus Level 3.2mg/dL (2.5-4.9) Magnesium Level 1.6mg/dL (1.6-2.6) Test 09/06/16 05:45 White Blood Count 10.1th/mm3 (3.8-10.1) Red Blood Count 4.20mil/mm3 (3.90-5.20) Hemoglobin 12.1g/dL (12.0-15.6) Hematocrit 36.8% (35.0-46.0) Mean Corpuscular Volume 87.6fL (81-100) Mean Corpuscular Hemoglobin 28.8pg (27.0-35.0) Mean Corpuscular Hemoglobin Concent 32.9% (32.0-37.0) Red Cell Distribution Width 16.9% (12.3-15.4) Platelet Count 372bil/L (150-400) Neutrophils (%) (Auto) 73.6% (40-74) Lymphocytes (%) (Auto) 8.4% (14-46) Monocytes (%) (Auto) 15.4% (4-12) Eosinophils (%) (Auto) 1.6% (0-5) Basophils (%) (Auto) 0.3% (0-3) Prothrombin Time 11.0sec (8.1-12.5) Prothromb Time International Ratio 1.03ratio Sodium Level 137mEq/L (134-144) Potassium Level 4.0mEq/L (3.5-5.2) Chloride Level 99mEq/L (97-108) Carbon Dioxide Level 25mmol/L (18-29) Blood Urea Nitrogen 10mg/dL (8-27) Creatinine 0.41mg/dL (0.57-1.00) Estimat Glomerular Filtration Rate 224mL/min (>59) Glucose Level 110mg/dL (60-99) Calcium Level 8.1mg/dL (8.5-10.1) Total Bilirubin 0.4mg/dL (0.0-1.2) Aspartate Amino Transf (AST/SGOT) 14U/L (0-50) Alanine Aminotransferase (ALT/SGPT) 6U/L (0-32) Alkaline Phosphatase 83U/L (25-165) Total Protein 4.9g/dL (6.4-8.4) Albumin 2.1g/dL (3.4-5.0) Plan Impression Patient chart reviewed, patient interviewed and anesthestic plan with risks, benefits, and alternatives discussed, and informed consent obtained. NPO Status: 11/30 sip of water with meds ASA Physical Status: ASA4 Life Threatening (metastatic lung cancer) Anesthetic Support Modalities: Arterial Line Anesthetic Plan: GA Bene/Risks/Altern/Consents: Yes (including prolonged intubation/ventilation) HP Complete Prior to Induction: Yes Jett Wang MD Sep 06, 2016 12:50
[2016-09-06] MEDS ORDERED: Lactated Ringer's 1,000 ML IV ONE (13:00)
[2016-09-06] MEDS ORDERED: CeFAZolin Inj 2 gm / 50mL D5W IV ONE (13:33)
[2016-09-06] MEDS ORDERED: Phenylephrine/NS 100 mCg/mL 10 mL Syringe IVPUSH ONE (13:56)
[2016-09-06] MEDS ORDERED: Ondansetron 2 mg/mL 2 mL Inj ONE (13:56)
[2016-09-06] MEDS ORDERED: MetoCLOpramide 5 mg/mL 2 mL Inj ONE (13:56)
[2016-09-06] MEDS ORDERED: Propofol 10,000 mCg/mL 20 mL Inj ONE (13:56)
[2016-09-06] MEDS ORDERED: Lidocaine PF 1% 30 mL Inj ONE (13:56)
[2016-09-06] MEDS ORDERED: Dexamethasone 4 mg/mL Inj ONE (13:56)
[2016-09-06] MEDS ORDERED: HYDROmorphone 2 mg/mL Inj ONE (13:56)
[2016-09-06] MEDS ORDERED: fentaNYL-PF 50 mCg/mL 2 mL Inj ONE (13:56)
[2016-09-06] MEDS ORDERED: Rocuronium 10 mg/mL 5 mL Inj ONE (13:56)
[2016-09-06] MEDS ORDERED: Bupivacaine 0.5%/EPI 50 mL Inj INFILTRATE ONE (14:04)
--- NOTE | 2016-09-06 14:17 | NUR ---
pt off unit Addendum: 09/06/16 at 1418 by TRISTIAN CUETO CNA Amended: Links added.
[2016-09-06] MEDS: Lactated Ringer's 1,000 ML IV SCH ×2 (15:00→16:00)
[2016-09-06] MEDS ORDERED: Lactated Ringer's 500 ML IV PRN (15:08)
[2016-09-06] MEDS ORDERED: Phenylephrine 10,000 mCg/mL Inj IVPUSH PRN (15:10)
[2016-09-06] MEDS ORDERED: hydrALAZINE 20 mg/mL Inj IVPUSH PRN (15:10)
[2016-09-06] MEDS ORDERED: HYDROmorphone 1 mg/mL Inj IVPUSH PRN (15:10)
[2016-09-06] MEDS ORDERED: Albuterol-Ipratropium 3 mL Inhalation Solution NEB PRN (15:10)
[2016-09-06] MEDS ORDERED: EPHEDrine Sulfate 50 mg/mL Inj IVPUSH PRN (15:10)
[2016-09-06] MEDS ORDERED: Dexamethasone 4 mg/mL Inj IVPUSH PRN (15:10)
[2016-09-06] MEDS ORDERED: fentaNYL-PF 50 mCg/mL 2 mL Inj IVPUSH PRN (15:10)
[2016-09-06] MEDS ORDERED: Ondansetron 2 mg/mL 2 mL Inj IVPUSH PRN (15:10)
[2016-09-06] MEDS ORDERED: Labetalol 5 mg/mL 4 mL Inj IV PRN (15:10)
[2016-09-06] MEDS ORDERED: Atropine 0.4 mg/mL Inj IVPUSH PRN (15:10)
[2016-09-06] MEDS ORDERED: MetoCLOpramide 5 mg/mL 2 mL Inj IVPUSH PRN (15:10)
[2016-09-06 15:30] LABS: APPEARANCE,URINE CLEAR (CLEAR,HAZY); COLOR,URINE DARK YELLOW (YELLOW); OCCULT BLOOD,URINE NEGATIVE (NEGATIVE)
[2016-09-06 15:31] LABS: UROBILINOGEN,URINE NORMAL (NORMAL)
[2016-09-06] MEDS ORDERED: Doxycycline 100 mg Inj PLEURAL ONE (15:50)
--- NOTE | 2016-09-06 16:34 | PCM.ANEP1 ---
Post Anesthesia Phase 1 PACU Phase 1 Assessment Date of Service: Sep 06, 2016 Anesthetic Administered: GA Level of Alertness: Drowsy, not talking Pain: No Nausea or Vomiting: No Oxygen Delivery: Simple Mask Lungs: Diminished Jett Wang MD Sep 06, 2016 16:34
--- NOTE | 2016-09-06 16:42 | PCM.ANEP2 ---
Post Anesthesia Evaluation ASA/CMS Post Anesthesia Date of Service: Sep 06, 2016 VS in Patient's Normal Range?: Yes Resp Stable; Airway Patent?: Yes CV Function & Hydration Stable: Yes Mental Status Recovered?: Yes Pain control Satisfactory?: Yes N/V Control Satisfactory?: Yes Jett Wang MD Sep 06, 2016 16:42
--- NOTE | 2016-09-06 17:07 | DRSVH ---
PROCEDURE: X-RAY CHEST ONE VIEW, PORTABLE ([id number]) INDICATIONS: f/u L chest tube x2 TECHNIQUE: One view of the chest was acquired. COMPARISON: [facility], CT, CT CHEST W CON, 09/05/2016, 11:59. [facility], C R, XR CHEST 1VW (PORTABLE), 09/05/2016, 9:21. FINDINGS: Surgical changes and devices: Stable position of left subclavian chest port and left superior pleural drain. A new pleural drain on the left has been placed with the tube tip projected over the left up per quadrant at the level of the left mid posterior 12th rib. Lungs and pleura: Diffuse, bilateral airspace opacities are present which has decreased involving the left lung base. No definite pneumothorax is present. Mediastinum: Mediastinal contours appear normal. Heart size is normal. Bones and chest wall: No suspicious bony lesions. Overlying soft tissues appear unremarkable. IMPRESSION: 1. Placement of new left pleural drain with the tube tip injected over the left upper quadrant at the level of the 12th rib. 2. Diffuse bilateral air space opacities redemonstrated decreased involving the left lung base. Dictated by: Lior Hilton RRA Interpreted: Gabi Masters MD on 09/06/2016 at 17:04 Transcribed by: IRASEMA on 09/06/2016 at 17:06 Approved by: Gabi Masters MD, PhD on 09/07/2016 at 11:01
--- NOTE | 2016-09-06 17:47 | PCM.PROC ---
Procedure Note Date of Service: Sep 06, 2016 Pre Procedure Diagnosis: Primary diagnoses: 1. stage IV left sided lung adenocarcinoma diagnosed September 11, 2015 2. Left malignant effusion Other diagnose: 1. malignant pericardial effusion with tamponade physiology requiring 2. pericardial drain 3. DVT 4. bLood clot in right leg (on Coumadin) 5. anxiety Post Procedure Diagnosis: Same Procedure: Pullback left anterior chest tube Provider and Veterans' Coordinator: Morales Pringle PA-C Indication for Procedure: Chest tube into far Chest X-Ray Procedural Analgesia: None Procedure Details: The patient was positioned in a right side-lying position. Chest tube site was prepped with Betadine solution and draped in a sterile fashion. Area around the chest tube was infiltrated with 8 mL of 1% lidocaine with epinephrine. Chest tube sutures were cut. The chest tube was pulled back approximately 2 inches. The chest tube was resecured with a 2-0 nylon stitch. A dressing of Vaseline gauze, drain sponge, and 4 x 4's was applied. Specimen: None Post Procedure Plan: Chest tubes were remain off suction for 3 additional hours and then be placed on suction. Morales Pringle PA-C Sep 06, 2016 17:47
[2016-09-06] MEDS: Dextrose 5% 500 ML IV SCH (19:54)
--- NOTE | 2016-09-06 20:40 | NUR ---
Chest tube/surgery Patient noted to have chest tube to left chest wall to suction small amount serosanguineous out put noted. Patient denied pain using small amt data control clerk supervisor only. Pt was taken to surgery for talc procedure and replacement of chest tube this early afternoon. Pt arrived back to floor at 1900 with bilat chest tubes combined into one canister, oxymask at 19 liters, patient denies pain but data control clerk supervisor restarted and patient informed to use. Report given to oncoming nurse who will take over care. Family at bedside and updated on plan of care. Addendum: 09/07/16 at 0712 by DAFNE BECK RN Correction patient arrived to floor with 10 liters oxymask not 19.
--- NOTE | 2016-09-06 21:26 | PCM.PNMED ---
Subjective Date of Service Sep 06, 2016 Exam Vital Signs Vital Sign - Last Date Time Temp Pulse Resp B/P Pulse Ox O2 Delivery O2 Flow Rate FiO2 09/06/16 20:20 37.2 106 18 104/68 94 Nasal Cannula 9.00 Intake and Output 09/05/16 09/05/16 09/06/16 Cumulative From/Thru 15:00 23:00 07:00 08/31/16 13:48 - 09/06/16 06:26 Intake Total 1697 ml 492 ml 73219 ml Output Total 660 ml 430 ml 7120 ml Balance 1037 ml 62 ml 4128 ml Intake Oral 1600 ml 375 ml 6875 ml IV Total 97 ml 117 ml 3773 ml Packed Cells 600 ml Output Urine Total 300 ml 350 ml 3600 ml Chest Tube Drainage Total 2050 ml Drainage Total 360 ml 80 ml 1470 ml # Voids 1 1 9 # Bowel Movements 0 0 Lab and Diagnostics Result Diagram: 09/06/16 0545 09/06/16 0545 Microbiology Blood cultures are negative 2 so far X-Rays, CTs and MRIs CXR concurrently reviewed by myself shows the Chest Tube in Place on the left. X-RAY CHEST ONE VIEW ([id number]) INDICATIONS: chest tube TECHNIQUE: One view of the chest was acquired. COMPARISON: [facility], CR, XR CHEST 1VW, 09/01/2016, 15:45. [facility], CR, XR CHEST 1VW, 08/26/2016, 17:40. [facility], CR, XR CHEST 1VW, 06/01/2016, 14:03. FINDINGS: Surgical changes and devices: Left-sided portacatheter, tip of which is in the upper SVC. Left chest tube. Lungs and pleura: No pneumothorax. Decreased, [id number]-ov-pophrbgl left pleural effusion. No change in moderate patchy multifocal bilateral pulmonary opacities. Mediastinum: Mediastinal contours appear normal. Heart size is normal. Bones and chest wall: No suspicious bony lesions. Overlying soft tissues appear unremarkable. IMPRESSION: 1. Decreasing left pleural effusion following left chest tube placement. 2. No change in multifocal pneumonia. Patient Name: ADALI TILLEY MR#: [id number] Location: [facility] Ordering Phys: Johanna Islas DO Date of Service: 09/05/16 1031 PROCEDURE: CT CHEST WITH CONTRAST ([id number]) INDICATIONS: f/u Left pleural effusion s/p chest tube TECHNIQUE: After the administration of intravenous contrast, 5 mm thick sections acquired from the pulmonary apices to the posterior costophrenic angles. 7 mm thick coronal and sagittal MIP reformats were acquired. For radiation dose reduction , the following was used: automated exposure control, adjustment of mA and/or kV according to patient size. COMPARISON: [facility], CT, CT ANGIO CHEST PE, 08/25/2016, 14:59. [facility], CT, CT CHEST W CON, 10/28/2015, 8:23. FINDINGS: Image quality: Excellent. Lungs and pleura: There is a new left-sided chest tube with the tip extending to the superior segment of the left lower lobe in the apex. There is marked decrease in the large pleural effusion seen on the prior study. There is a residual moderate amount of pleural fluid as well as a small amount of hydropneumothorax. There are also areas of loculated pleural fluid including along the left apex. There is improved aeration of the left lung with nurse assistant consolidation in the left lower lobe and left lingula inferiorly as well as linear areas of presumed compressive atelectasis. Within the left upper lobe at the apex, there is an irregular mass redemonstrated, measuring approximately 3.7 x 2.0 cm in transverse dimension, similar in appearance compared to the recent study given differences in technique. There is pleural thickening and enhancement along the left hemithorax. On the right, there is a moderate size right pleural effusion which is new compared to the prior study with associated compressive atelectasis. There are also peribronchial areas of consolidation and groundglass opacities in the right lung with an apical predominance. The trachea and central airways are patent. Mediastinum: There is a left chest wall subclavian Port-A-Cath with the tip extending into the superior vena cava. Heart size is normal. No pericardial effusion. There is hilar soft tissue fullness suggestive of lymphadenopathy bilaterally with encasement and narrowing of left perihilar structures. Thoracic aorta and central pulmonary arteries are normal in size. Esophagus is normal in caliber. No hiatal hernia. Bones and chest wall: There are a few scattered sclerotic lesions in the spine including the C7 vertebral body consistent with metastatic disease. No vertebral body compression fractures. No axillary or supraclavicular adenopathy by size criteria. Thyroid gland demonstrates no discrete nodules. Abdomen: Visualized upper abdominal solid organs appear normal. Upper abdominal bowel loops are normal in caliber. IMPRESSION: 1. Decrease in size of left pleural effusion status post chest tube placement. There is persistent moderate right pleural fluid with areas of loculation as well as a small hydropneumothorax. 2. Left pleural thickening and enhancement suspicious for metastatic disease. 3. Irregular left apical mass consistent with history of lung cancer similar in size to the recent prior study. Dictated by: Nancy Barron M.D Assessment & Plan The patient is a 65-year-old female with recurrent malignant pleural effusion who came into [facility] emergency room because she was dyspneic admitted because of respiratory failure. # Acute respiratory failure-secondary to recurrent malignant pleural effusion -Chest tube was placed with significant drainage of the pleural effusion. Yesterday's CXR shows no further improvement in the pleural effusion. CT Chest this AM showed some improvement but also some right sided effusion -She is now pending TPA infusion and if not successful then pleurodesis by general surgery in the next few days: She will go to the OR tomorrow # Possible pneumonia- by CT scan 08/25 "possible "pneumonia - We will continue current antibiotics until her 10 day treatment course has been completed: This is completed # Oral thrush - Continue Diflucan therapy. # The patient has been anticoagulated for a DVT, in September 2015, gastronemius/ peroneal- since this was a year ago and distal do not see a need to bridge this patient before resuming warfarin, consider discussing with her primary oncologist Dr. Lord -Likely to have a hypercoagulable state due to her lung cancer. # Acute blood loss Anemia-with the patient's hemoglobin steadily dropping from 10.9 08/16, to 9.9 08/30, 2 9.0 08/31, to 7.6/.1 - Therefore 2 units of packed red blood cells were given 2 days ago with a resulting hemoglobin of 12.3, now 12.4 today. # Leukocytosis-improving with Levaquin, now down to 8.6. -Will continue to complete 10 day course: Done # Prophylaxis-DVT we will place SCDs, no anticoagulation due to acute blood loss anemia. Disposition-plan is for pleurodesis as above and discharge planning after that. GI Prophylaxis: Not indicated VTE Mechanical Devices: Intermittant Pneumatic CD Resuscitation Status: CPR: Attempt Resuscitation Indy Schuler DO Sep 06, 2016 21:26
[2016-09-06] MEDS: oxyCODONE ER 20 mg ER12 Tablet PO PRN (21:38)
[2016-09-07] VITALS (11 sets, daily range): BP systolic 110–129; BP diastolic 76–84; PULSE 116–132; RESP 11–18; O2SAT 89–97
[2016-09-07 06:30] LABS: BASOPHILS % (AUTO) 0.1 % (0-3); EOSINOPHILS % (AUTO) 0.1 % (0-5); MONOCYTES % (AUTO) 12.1 % (4-12); Mean Corpuscular Hemoglobin 28.5 pg (27.0-35.0); Mean Corpuscular Volume 87.9 fL (81-100); NEUTROPHILS % (AUTO) 79.7 % (40-74); Platelet Count 366 bil/L (150-400)
--- NOTE | 2016-09-07 07:10 | OP ---
[address] [address] OPERATIVE REPORT PATIENT: ADALI TILLEY : 1950 MR#: [id number] ADMIT: 08/31/2016 JOB ID: [id number] DATE OF SURGERY: 09/06/2016 SURGEON: Alek Ferrari MD. TELEGRAPH SERVICE CLERK: MAGALY Mason. ANESTHESIA: General. PREOPERATIVE DIAGNOSIS(ES): Left-sided malignant pleural effusion. POSTOPERATIVE DIAGNOSIS(ES): Left-sided malignant pleural effusion with undrained hemothorax. PRINCIPAL PROCEDURE: Left-sided video-assisted thorascopic surgery with lung decortication, drainage of pleural effusion and hemothorax, and talc pleurodesis. INDICATION FOR PROCEDURE: The patient is a 65-year-old female with left-sided malignant pleural effusion who has incomplete drainage of the left hemothorax via a chest tube. Operative drainage and talc pleurodesis was requested. PRINCIPAL FINDING: Successful left VATS with decortication and removal of the undrained hemothorax at the base. Talc was placed into the left thorax. Assistance from a surgical PA was critical in completion and performance of the case. PROCEDURE COURSE: The patient was brought to the operating table and was provided with general anesthesia. She was intubated via a double-lumen endotracheal tube. The patient was provided with a Becker catheter and SCDs. A time-out was performed. The patient was then placed in the right lateral decubitus position, exposing her left chest. The patient was given IV antibiotics. The patient's pre-existing chest tube was then removed and the left chest was then prepped and draped in the usual sterile fashion. Directly through the chest tube site, a port was placed and the camera was inserted. Using finger dissection and also using a blunt instrument, we were able to create a space for better visualization. Approximately 400 cc of pleural fluid was evacuated. Given there was quite a bit of rind and adhesions and also fibrinous exudate in the pleural space, tedious removal was performed using the ring forceps. A second incision was then made in the posterior aspect of her chest. The skin was incised using a scalpel and the chest was entered under direct visualization. Again, using my finger, I was able to break up some adhesions and create space just beneath the incision. Next, using ring forceps, we were able to achieve a complete visualization of the upper lung all the way to the apex and down both the anterior aspect and posterior aspect of the thorax cavity all the way down to the diaphragmatic surface. There was undrained sort of clotted hemothorax which was able to be removed using the ring forceps. The chest cavity was also irrigated and suctioned. Ventilation of the left lung shows that it expanded very well. Next, we attempted to insufflate aerosolized talc into the entire thorax, however, we had misfirings on all four canisters of the aerosolized talc. Therefore, we had to manually instill the talc powder through the two chest incisions into the pleural space. It was not delivered aerosolized. Next, a straight 32-Mongolian chest tube was then inserted through the posterior incision and that went straight up to the apex and then an angled 32-Mongolian chest tube went through the anterior chest incision and curved towards the posterior diaphragm. Both chest tubes were then sutured to the chest wall and connected to the Pleur-evac collection device. Sterile dressings were then placed over each wound. By the end of the procedure, needle counts and sponge counts were correct. The EBL was 200 cc. Patient was then extubated and taken to the recovery room in stable satisfactory condition. A chest x-ray will be obtained in the recovery room. ZARA
--- NOTE | 2016-09-07 07:39 | NUR ---
Pain/activity/chest tube Pt reporting increased pain at bedtime 8/ to left chest tube insertion sites. Pt was given Oxycontin and Ambien to help sleep per eMAR. Pt also encouraged to use RAIL MANAGER Dilaudid. Chest tubes were on water seal for 3 hours postoperatively and then to wall suction at 2100 per orders.. Bubbling with breathing is seen in the water seal chamber, all connector sites nicely sealed, dressing to left chest is CDI. Pt denies sob, is now on 5L Oxymask and CPOx with O2 sats maintained at 93-94%. Pt up 1-2PA with FWW to [facility]. Pt reporting overall generalized weakness due to surgery. This morning pt was having nausea and was given IV Zofran 4mg. Pt so far has had clear liquids. Chest xray done this morning as well.
--- NOTE | 2016-09-07 09:20 | DRSVH ---
PROCEDURE: X-RAY CHEST ONE VIEW, PORTABLE ([id number]) INDICATIONS: f/u L chest tube x2 TECHNIQUE: One view of the chest was acquired. COMPARISON: [facility], CR, XR CHEST 1VW (PORTABLE), 09/06/2016, 16:25. FINDINGS: Surgical changes and devices: Stable positioning of left chest port in the superior left pleural drai n. The lower left pleural drain has been slightly retracted tube tip still projected over the left u pper quadrant. Lungs and pleura: Small left basilar pneumothorax is present. Interval decrease in diffuse, widespre ad bilateral interstitial and airspace opacities bilaterally. Mediastinum: Mediastinal contours appear normal. Heart size is normal. Bones and chest wall: No suspicious bony lesions. Overlying soft tissues appear unremarkable. IMPRESSION: 1. Small left basilar pneumothorax. 2. Decreasing pulmonary edema and/or diffuse bilateral pneumonia. Dictated by: Lior Hilton [facility] Interpreted: Jaimee Hernandez MD on 09/07/2016 at 9:18 Transcribed by: JV on 09/07/2016 at 9:20 Approved by: Jaimee Hernandez M.D. on 09/07/2016 at 16:33
--- NOTE | 2016-09-07 10:22 | PCM.PNSURG ---
Subjective Date of Service: Sep 07, 2016 Visit Information: Reason for Visit Left Pleural Effusion,Stage Iv Adca Lung Surgery/Surgery Date Post-Op Day # 1 Date of Admission: Aug 31, 2016 at 17:11 Hospital Day # Subjective: No complaints of shortness of breath or dyspnea. Cough productive of clear fluids this morning. Pain marginally controlled with STACKER OPERATOR, not able to use consistently. Ambulating in the room with the assistance of a walker. Not feeling study on her feet. Postop General: No Shortness of Breath Pain Management: STACKER OPERATOR without Basal Postop Activity: Ambulates with Assist Device, Ambulating in Room Only Objective Vital Sign- Last 8 Hours Date Time Temp Pulse Resp B/P Pulse Ox O2 Delivery O2 Flow Rate FiO2 09/07/16 06:44 18 93 09/07/16 05:01 36.9 116 16 127/78 94 Nasal Cannula 8.00 Intake and Output- Last 8 Hour 09/07/16 Cumulative From/Thru 06:59 08/31/16 13:48 - 09/07/16 06:20 Intake Total 200 ml 55590 ml Output Total 840 ml 8990 ml Balance -640 ml 5058 ml Intake Oral 200 ml 7075 ml IV Total 6373 ml Packed Cells 600 ml Output Urine Total 300 ml 4500 ml Chest Tube Drainage Total 2280 ml Drainage Total 540 ml 2010 ml Estimated Blood Loss 200 ml # Voids 1 10 # Bowel Movements 0 0 General: Alert, Cooperative Lungs: Rhonchorus (bilaterally) Heart: Regular Rate/Rhythm Chest: 540 mL of serosanguineous output since the time of surgery. Passive air leak on expiration. SURGICAL WOUND : Wound General Appearence: Wound under dressing Extremities: Thigh&Calf Soft/Nontender Neuro: Normal Speech Result Diagram: 09/07/16 0610 09/07/16 0610 Diagnostics: Greatly improved aeration of left lung lobes Assessment & Plan Impression Primary diagnoses: 1. stage IV left sided lung adenocarcinoma diagnosed September 11, 2015 2. Left malignant effusion. POD #1 with expected air leak. Other diagnose: 1. malignant pericardial effusion with tamponade physiology requiring 2. pericardial drain 3. DVT 4. bLood clot in right leg (on Coumadin) 5. anxiety Problems: Plan 1. Both chest tubes to suction today. 2. Repeat chest x-ray in the morning. 3. Incentive spirometry is discussed and encouraged. Pain Management: STACKER OPERATOR VTE Prophylaxis: SCDs Resuscitation Status: CPR: Attempt Resuscitation Morales Pringle PA-C Sep 07, 2016 10:22
--- NOTE | 2016-09-07 10:54 | NUR ---
Social Work Note: Received notification from that pt. okay to d/c to SNF today. Current plan is for pt. to go to [facility]. Asked JANICE/Sena to coordinate d/c and arrange BLS transport. Met with pt. and family at bedside. All aware and agreeable to plan. P: [facility] today via BLS at 12:45pm. RN and family notified. ARLENE Elam Addendum: 09/07/16 at 1106 by ABDON SWAN ABOVE NOTE on Wrong Patient.
[2016-09-07] MEDS: oxyCODONE ER 20 mg ER12 Tablet PO PRN (10:58)
--- NOTE | 2016-09-07 11:08 | NUR ---
Social Work Note: Reviewed chart. Received update in AM rounds. Pt. anticipated to d/c home tomorrow 09-08-2016 with home health arranged through [facility]. Placed call to Sarah at [facility] confirming plan. She has pt. scheduled to be seen in the home on 09-10-16. Sarah requesting that [facility] be called when discharge confirmed. P: Home with [facility]. D/C anticipated for tomorrow 09-08-16. Home health has been arranged. ARLENE Elam Addendum: 09/07/16 at 1522 by ABDON MARTINEZ Received call from Sarah at [facility]. She reports that they now have pt. scheduled for first visit in the home on Monday09-09-16. Sarah/[facility] requesting a phone call when pt. discharges. ARLENE Elam
[2016-09-07] MEDS: 0.9% Sodium Chloride 250 ML IV SCH (14:20)
--- NOTE | 2016-09-07 14:36 | PCM.PALLBR ---
Palliative Care Recommendation Summary of palliative recommendations: Symptom management (Pain/other): Pt complains that it is difficult for her to wake up in pain at night and she is never sure (can't remember) if she can push OPTOMETRY ASSISTANT button again or not. So she tends not too. At home, oxycontin +ambien at night seemed to be enough, but neither she nor daughter feel that the dose at night is sufficient in the context of this acute chest tube pain. 1. Pain: currently on oxycodone ER 20mg BID with ambien 10mg at HS and hydromorphone OPTOMETRY ASSISTANT 0.2mg for breakthrough. She used a small amount of hydromorphone in last 24 hours that would be approximately equal to 10mg oxycodone. I recommend (and ordered) increasing the night dose to 30mg oxycodone ER with continuation of ambien and OPTOMETRY ASSISTANT. Discussed with daughter and pt the plan above and they want to try this. Will return in a.m. to assess effectiveness of pain control. DPOA/Advanced Directives/POLST: 1. Full code at this time. 2. DPOA: Chantel confirmed that she is HCPOA for her Mom. Paperwork in chart signed by patient 10/12/15. The alternate POA is "an officer of the [employer]," per paperwork. 3. Discussion of POLST deferred as family goals are consistently intentionally concentrated on additional chemotherapy. I will try to discuss possibility of changing code status to DNR/DNI in next few days. Family/emotional support: good support from pt's daughter and pt's sister Carola. Ish is quite weak and supports emotionally, but all caregiving is from pt's daughter and sister. Spiritual support: SDA. Patient Goals: 1. To continue to try chemotherapy options offered by Dr. Lord. 2. Dtr and pt seem to understand that options are becoming more limited, but they remain hopeful for additional time for pt to enjoy her family. Problems: Resuscitation Status Resuscitation Status: CPR: Attempt Resuscitation Additional Information Today HCPOA was identified and paperwork is on paper chart . Advanced Care Planning Address: Durable Power of Pump Erector Helper Pain: Severe Symptom management: Pain Total time 65 minutes; >50% face to face with patient and/or family, providing counselling regarding plans and recommendations, and in care coordination with his/her medical teams. Palliative Brief Note Date of Service Sep 07, 2016 . History of Present Illness Mrs. Browning is a 65 y.o. F with Stage 4 adeno CA of lung with C7 bone mets and known left malignant effusion. She had a thoracentesis 08/26 with 1707cc out. Patient had increasing SOB following evening 08/27. Patient seen by her oncologist Dr. Lord 08/30/16 and on physical exam, she had decreased breath sounds on left consistent with reaccumulated fluid. Patient reported a two day history of worsening shortness of breath, associated with fever, non-productive cough, chest pain located across entire chest with radiation to back, nausea, vomiting. She was admitted 08/31/16 for management of acute SOB due to her large left malignant pleural effusion. Hospital Course: Dr. Cano placed a L Chest tube placed 09/01 with initial drainage 1600mL. Post procedure CXR shows partial re-expansion of left lung with fluid at base. IR could not do a successful drainage of remaining fluid due to multi-loculation and thickness of fluid, so it was felt that a PleurX catheter would not help her in future. Dr. Cano did a pleurodesis 09/06 and today she is recovering from the procedure. Per Dr. Lord, he is holding her chemotherapy and has recommended hospice to patient, but she was not ready for this. Dr. Lord is trying to obtain an oral chemotherapy agent (lapatinib) for her. Today is Hospital Day 7. Subjective: She is awake and alert. Daughter Chantel is by bedside. Ish was visiting earlier but went home to rest (he has brain cancer and is struggling with weakness and memory issues). Chantel confirmed that she is HCPOA for her Mom. Velia Arriola MD Sep 07, 2016 14:36 catheter would not help her in future. Dr. Cano did a pleurodesis 09/06 and today she is recovering from the procedure. Per Dr. Lord, he is holding her chemotherapy and has recommended hospice to patient, but she was not ready for this. Dr. Lord is trying to obtain an oral chemotherapy agent (lapatinib) for her. Today is Hospital Day 7. Subjective: She is awake and alert. Daughter Chantel is by bedside. Ish was visiting earlier but went home to rest (he has brain cancer and is struggling with weakness and memory issues). Chantel confirmed that she is HCPOA for her Mom. Velia Arriola MD Sep 07, 2016 14:36
[2016-09-07] MEDS: Dextrose 5% 500 ML IV SCH (14:58)
--- NOTE | 2016-09-07 18:26 | NUR ---
Pain Pain continues to be uncontrolled with COOKING CHEF. Pt seems to fall asleep and forget to push button as well as she thinks she has pushed the button but hasn't. Attempted to educate pt how to tel if she can push button but pt doesn't seem to understand as some confusion is noted. BID ER Oxy needs to be given 830 and 2030 as this helps greatly. Palliative visited with pt and increased ER Oxy dose to help coverage. Care continues
--- NOTE | 2016-09-07 18:43 | PCM.PNMED ---
Subjective Date of Service Sep 07, 2016 Subjective Patient is seen and examined. She says her pain is mostly under control but her mouth is dry. She is talking to her . No overnight fevers or chills. Family is requesting to swithc her to PO meds. Exam Vital Signs Vital Sign - Last Date Time Temp Pulse Resp B/P Pulse Ox O2 Delivery O2 Flow Rate FiO2 09/07/16 18:00 16 89 09/07/16 14:00 36.7 132 110/78 OxyMask 4.00 Intake and Output 09/06/16 09/06/16 09/07/16 Cumulative From/Thru 15:00 23:00 07:00 08/31/16 13:48 - 09/07/16 06:20 Intake Total 2000 ml 600 ml 200 ml 69010 ml Output Total 1030 ml 840 ml 8990 ml Balance 2000 ml -430 ml -640 ml 5058 ml Intake Oral 0 ml 200 ml 7075 ml IV Total 2000 ml 600 ml 6373 ml Packed Cells 600 ml Output Urine Total 600 ml 300 ml 4500 ml Chest Tube Drainage Total 230 ml 2280 ml Drainage Total 540 ml 2010 ml Estimated Blood Loss 200 ml 200 ml # Voids 1 10 # Bowel Movements 0 0 0 Exam General: NAD HEENT: NCAT Heart: RRR, no S3/S4 Lungs: no wheezes, crackles on RLL, left side with suction sounds Abd: Flat, Non-tender ExT: Neg for edema Psych: Negative for anxiety IVs and Medications IV Fluids 500 cc bolus was given this AM. Medications Reviewed: Medications were reviewed in detail Lab and Diagnostics Result Diagram: 09/07/16 0610 09/07/16 0610 Microbiology Blood cultures are negative 2 so far X-Rays, CTs and MRIs CXR concurrently reviewed by myself shows the Chest Tube in Place on the left. X-RAY CHEST ONE VIEW ([id number]) INDICATIONS: chest tube TECHNIQUE: One view of the chest was acquired. COMPARISON: [facility], CR, XR CHEST 1VW, 09/01/2016, 15:45. [facility], CR, XR CHEST 1VW, 08/26/2016, 17:40. [facility], CR, XR CHEST 1VW, 06/01/2016, 14:03. FINDINGS: Surgical changes and devices: Left-sided portacatheter, tip of which is in the upper SVC. Left chest tube. Lungs and pleura: No pneumothorax. Decreased, [id number] left pleural effusion. No change in moderate patchy multifocal bilateral pulmonary opacities. Mediastinum: Mediastinal contours appear normal. Heart size is normal. Bones and chest wall: No suspicious bony lesions. Overlying soft tissues appear unremarkable. IMPRESSION: 1. Decreasing left pleural effusion following left chest tube placement. 2. No change in multifocal pneumonia. Patient Name: ADALI TILLEY MR#: [id number] Location: [facility] Ordering Phys: Felipabraulio Johanna Ayala Date of Service: 09/05/16 1031 PROCEDURE: CT CHEST WITH CONTRAST ([id number]) INDICATIONS: f/u Left pleural effusion s/p chest tube TECHNIQUE: After the administration of intravenous contrast, 5 mm thick sections acquired from the pulmonary apices to the posterior costophrenic angles. 7 mm thick coronal and sagittal MIP reformats were acquired. For radiation dose reduction , the following was used: automated exposure control, adjustment of mA and/or kV according to patient size. COMPARISON: [facility], CT, CT ANGIO CHEST PE, 08/25/2016, 14:59. [facility], CT, CT CHEST W CON, 10/28/2015, 8:23. FINDINGS: Image quality: Excellent. Lungs and pleura: There is a new left-sided chest tube with the tip extending to the superior segment of the left lower lobe in the apex. There is marked decrease in the large pleural effusion seen on the prior study. There is a residual moderate amount of pleural fluid as well as a small amount of hydropneumothorax. There are also areas of loculated pleural fluid including along the left apex. There is improved aeration of the left lung with assistant oceanographer consolidation in the left lower lobe and left lingula inferiorly as well as linear areas of presumed compressive atelectasis. Within the left upper lobe at the apex, there is an irregular mass redemonstrated, measuring approximately 3.7 x 2.0 cm in transverse dimension, similar in appearance compared to the recent study given differences in technique. There is pleural thickening and enhancement along the left hemithorax. On the right, there is a moderate size right pleural effusion which is new compared to the prior study with associated compressive atelectasis. There are also peribronchial areas of consolidation and groundglass opacities in the right lung with an apical predominance. The trachea and central airways are patent. Mediastinum: There is a left chest wall subclavian Port-A-Cath with the tip extending into the superior vena cava. Heart size is normal. No pericardial effusion. There is hilar soft tissue fullness suggestive of lymphadenopathy bilaterally with encasement and narrowing of left perihilar structures. Thoracic aorta and central pulmonary arteries are normal in size. Esophagus is normal in caliber. No hiatal hernia. Bones and chest wall: There are a few scattered sclerotic lesions in the spine including the C7 vertebral body consistent with metastatic disease. No vertebral body compression fractures. No axillary or supraclavicular adenopathy by size criteria. Thyroid gland demonstrates no discrete nodules. Abdomen: Visualized upper abdominal solid organs appear normal. Upper abdominal bowel loops are normal in caliber. IMPRESSION: 1. Decrease in size of left pleural effusion status post chest tube placement. There is persistent moderate right pleural fluid with areas of loculation as well as a small hydropneumothorax. 2. Left pleural thickening and enhancement suspicious for metastatic disease. 3. Irregular left apical mass consistent with history of lung cancer similar in size to the recent prior study. Dictated by: Nancy Barron M.D Assessment & Plan The patient is a 65-year-old female with recurrent malignant pleural effusion who came into [facility] emergency room because she was dyspneic admitted because of respiratory failure. # Acute respiratory failure-secondary to recurrent malignant pleural effusion -Chest tube was placed with significant drainage of the pleural effusion. Yesterday's CXR shows no further improvement in the pleural effusion. CT Chest this AM showed some improvement but also some right sided effusion -She is now pending TPA infusion and if not successful then pleurodesis by general surgery in the next few days: She will go to the OR tomorrow : She underwent Video assisted pleurodesis on 09/06/16. Doing well, switching her to PO pain meds today with the hope of discharge tomorrow # Possible pneumonia- by CT scan 08/25 "possible "pneumonia - We will continue current antibiotics until her 10 day treatment course has been completed: This is completed # Oral thrush - Continue Diflucan therapy. # The patient has been anticoagulated for a DVT, in September 2015, gastronemius/ peroneal- since this was a year ago and distal do not see a need to bridge this patient before resuming warfarin, consider discussing with her primary oncologist Dr. Lord -Likely to have a hypercoagulable state due to her lung cancer. # Acute blood loss Anemia-with the patient's hemoglobin steadily dropping from 10.9 08/16, to 9.9 08/30, 2 9.0 /, to 7.6/29.1 - Therefore 2 units of packed red blood cells were given 2 days ago with a resulting hemoglobin of 12.3, now 10.1 today. # Leukocytosis-improving with Levaquin, today 10.1. Levaquin was stopped -Will continue to complete 10 day course: Done # Prophylaxis-DVT we will place SCDs, no anticoagulation due to acute blood loss anemia. Disposition-plan is discharge after she shows improvement GI Prophylaxis: Not indicated VTE Prophylaxis: SCDs VTE Mechanical Devices: Intermittant Pneumatic CD Resuscitation Status: CPR: Attempt Resuscitation Indy Schuler DO Sep 07, 2016 18:42
--- NOTE | 2016-09-07 19:35 | CCS NOTE ---
[facility] [address] [place] [address], [address] [address] MEDICAL ONCOLOGY OFFICE NOTE PATIENT: ADALI TILLEY : 1950 MR#: [id number] DATE: 08/31/2016 JOB ID: [id number] CORRECTED REPORT: DATE: 09/07/2016 HISTORY OF PRESENT ILLNESS: The patient's sister and are at bedside. She had arthroscopic evaluation of the malignant effusion and complex material by Dr. Ferrari with addition of a chest tube and pleurodesis. This was done yesterday. She still has some drainage per nurse of about 350 cc. She does not appear to be in any acute distress. She is on 4 L of oxygen per nasal cannula. Her lungs show some crepitus on the left side. Heart regular. No peripheral edema. She has been using a bedside commode, needs some assistance with ambulation. Labs reviewed. ASSESSMENT AND PLAN: A 65-year-old lady with a one year history of stage IV lung adenocarcinoma with no prior history of smoking. She is currently in the hospital for the management of the rapidly recurring complex and loculated malignant effusion on the left side. I spoke with Dr. Jaimee Hernandez today regarding the positioning of her chest tube and the surgical colleague, Morales Pringle. Overall, she did have a 2nd chest tube to better drain the lower segment and thoracoscopic evacuation of some material was done yesterday by Dr. Ferrari with talc pleurodesis. I am hopeful that the drainage of the chest tubes can now slow down so that they can be removed. Her chest x-ray did show a much better drainage of the residual fluid now. Pain-turner, she seems to be doing reasonably okay. Paperwork regarding application for a drug company to supply lapatinib has been submitted on a compassionate basis. 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 Chemotherapy is currently on hold given her weakness and chest management. I will see her back on Monday since I am out of office tomorrow. She is hopeful that she might be able to go home this weekend. Corrected by CARLOS MANUEL 10/27/16 at 11:57am Account number.
[2016-09-07] MEDS: oxyCODONE ER 10 mg ER12 Tablet PO SCH (20:19)
[2016-09-08] VITALS (13 sets, daily range): BP systolic 103–137; BP diastolic 65–79; PULSE 105–118; RESP 16–18; O2SAT 92–97
[2016-09-08] MEDS: 0.9% Sodium Chloride 250 ML IV SCH ×3 (02:35→10:28)
--- NOTE | 2016-09-08 03:55 | NUR ---
Weakness/Insomnia Patient appeared very weak, shaky , and unsteady while ambulating to bsc. Patient stated that she cannot sleep, however, stated that she is hesitant about taking Ambien because it sometimes causes nightmares. Patient decided that she would take Ambien and use MEDICAL RECORDS MANAGER along with it. VSS. On 4l NC. Call light within reach. Care continues
[2016-09-08 06:04] LABS: BASOPHILS % (AUTO) 0.2 % (0-3); EOSINOPHILS % (AUTO) 0.7 % (0-5); MONOCYTES % (AUTO) 10.6 % (4-12); Mean Corpuscular Hemoglobin 28.3 pg (27.0-35.0); Mean Corpuscular Volume 88.9 fL (81-100); Platelet Count 325 bil/L (150-400)
--- NOTE | 2016-09-08 07:55 | PCM.PNSURG ---
Subjective Date of Service: Sep 08, 2016 Visit Information: Reason for Visit: Left Pleural Effusion,Stage Iv Adca Lung Surgery/Surgery Date: Left-sided VATS with lung decortication, drainage of pleural effusion and hemothorax, and talc pleurodesis. Post-Op Day #2 Date of Admission: Aug 31, 2016 at 17:11 Hospital Day #6 Subjective: No acute events overnight. Pain tolerable, patient sitting up in chair and appears comfortable. Denies fever, chills, N/V. Per nursing, patient somewhat weak and unsteady when ambulating in her room. 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 Oxycodone ER, BID has significantly improved pain. . Pain Management: GREENSTONE POLISHER OPERATOR with Basal Neurological: Weakness Postop Activity: Ambulate with Assist Objective Vital Sign- Last 8 Hours Date Time Temp Pulse Resp B/P Pulse Ox O2 Delivery O2 Flow Rate FiO2 09/08/16 06:25 118 09/08/16 06:08 16 95 09/08/16 05:09 37.0 113 16 137/79 95 Nasal Cannula 4.00 09/08/16 00:39 36.7 115 16 122/79 97 Nasal Cannula 4.00 09/08/16 00:00 18 95 Intake and Output- Last 8 Hour 09/08/16 Cumulative From/Thru 07:00 08/31/16 13:48 - 09/08/16 06:30 Intake Total 620 ml 51538 ml Output Total 150 ml 9700 ml Balance 470 ml 5479 ml Intake Oral 200 ml 7275 ml IV Total 420 ml 7304 ml Packed Cells 600 ml Output Urine Total 150 ml 4850 ml Chest Tube Drainage Total 2280 ml Drainage Total 2370 ml Estimated Blood Loss 200 ml # Voids 10 # Bowel Movements 0 0 General: No Acute Distress Lungs: Coarse Heart: Exam Unremarkable SURGICAL WOUND : Wound General Appearence: Wound under dressing Dressing & Drainage Status: Intact Extremities: Warm, Thigh&Calf Soft/Nontender Result Diagram: 09/08/16 0500 09/08/16 0500 Lab & Micro Results: Laboratory Tests Test 09/08/16 05:00 White Blood Count 15.7th/mm3 (3.8-10.1) Red Blood Count 3.43mil/mm3 (3.90-5.20) Hemoglobin 9.7g/dL (12.0-15.6) Hematocrit 30.5% (35.0-46.0) Mean Corpuscular Volume 88.9fL (81-100) Mean Corpuscular Hemoglobin 28.3pg (27.0-35.0) Mean Corpuscular Hemoglobin Concent 31.8% (32.0-37.0) Red Cell Distribution Width 16.7% (12.3-15.4) Platelet Count 325bil/L (150-400) Neutrophils (%) (Auto) 82.0% (40-74) Lymphocytes (%) (Auto) 5.7% (14-46) Monocytes (%) (Auto) 10.6% (4-12) Eosinophils (%) (Auto) 0.7% (0-5) Basophils (%) (Auto) 0.2% (0-3) Sodium Level 137mEq/L (134-144) Potassium Level 4.4mEq/L (3.5-5.2) Chloride Level 101mEq/L (97-108) Carbon Dioxide Level 24mmol/L (18-29) Blood Urea Nitrogen 10mg/dL (8-27) Creatinine 0.39mg/dL (0.57-1.00) Estimat Glomerular Filtration Rate 238mL/min (>59) Glucose Level 126mg/dL (60-99) Calcium Level 7.5mg/dL (8.5-10.1) Total Bilirubin 0.3mg/dL (0.0-1.2) Aspartate Amino Transf (AST/SGOT) 19U/L (0-50) Alanine Aminotransferase (ALT/SGPT) 6U/L (0-32) Alkaline Phosphatase 77U/L (25-165) Total Protein 4.5g/dL (6.4-8.4) Albumin 2.0g/dL (3.4-5.0) Microbiology 08/31/16 Blood Culture -NO GROWTH after 5days 08/31/16 Blood Fungal Culture - NO FUNGUS isolated at one week Diagnostics: X-RAY CHEST ONE VIEW, PORTABLE (09/08/16) FINDINGS: - Surgical changes and devices: Left basal and apical pleural drains remain in positions, with fissural location of the superior pleural drain better seen on comparison chest CT. Left chest wall Port-A-Cath is again noted. - Lungs and pleura: Small basal left pneumothorax has decreased in size. Widespread interstitial and airspace opacities persist, along with dense retrocardiac opacity. Small apical left pleural effusion persists. - Mediastinum: Mediastinal contours appear normal. Heart size is normal. - Bones and chest wall: No suspicious bony lesions. Mild mid thoracic spine dextroscoliosis is again noted. Overlying soft tissues appear unremarkable. IMPRESSION: 1. Residual basal left pneumothorax has decreased in size. Persistent compressive atelectasis of the left lower lobe. 2. Background widespread pulmonary interstitial and airspace opacities persist, consistent with pulmonary edema and/or bronchopneumonia. Dictated by: Melvin Dalton M.D. on 09/08/2016 at 10:08 Approved by: Melvin Dalton M.D. on 09/08/2016 at 10:12 Assessment & Plan Impression 65yof with left malignant pleural effusion in setting of Stage IV left lung cancer on post-operative day #2 following VATS with lung decortication, drainage of pleural effusion and hemothorax, and talc pleurodesis. ~1300mls chest tube output in last 24hrs with continuous air leak. Problems: Plan -Chest tube to water seal. -Repeat chest x-ray tomorrow AM. -Encourage incentive spirometry. VTE Prophylaxis: SCDs Resuscitation Status: CPR: Attempt Resuscitation Attending Statement: I agree with Dr. Islas's assessment and plan. Continue chest tube drainage. Johanna Islas DO Sep 08, 2016 07:55 Alek Ferrari MD Sep 21, 2016 11:02
--- NOTE | 2016-09-08 08:26 | PCM.PALLBR ---
Palliative Care Recommendation Summary of palliative recommendations: Symptom management (Pain/other): F/U today on night pain and effectiveness of increasing HS dose pain meds. 1. Pain: for HS pain--> On 09/07 night dose increased to 30mg oxycodone ER with continuation of ambien and MACHINE OR MACHINERY MECHANIC. 09/08: d/c dilaudid MACHINE OR MACHINERY MECHANIC and start oxycodone IR 10mg po q [address] Arriola counseled medical staff specialist to regularly ask pt about her pain and offer BTP meds regularly. DPOA/Advanced Directives/POLST: 1. Full code changed to DNR/DNI on 09/08 after long discussion with POA daughter Chantel and pt's Ish. Note: Ish was not elected as POA because of his concurrent illness of brain cancer that has affected his health and memory. However, he doesn't always remember this fact or past paperwork done due to his condition and insisted on co-signing the POLST with his daughter. Chantel did not want him to feel excluded, so there are two signatures on front and back of POLST. Original in paper chart now and copies given to both Chantel and Ish. 2. DPOA: Chantel confirmed that she is HCPOA for her Mom. Paperwork in chart signed by patient 10/12/15. The alternate POA is "an officer of the [employer]," per paperwork. 09/[address] Arriola: This occurred in conference room as Radha wanted to sleep. Family had a lot of questions on Radha's prognosis and their concern about continuing with cancer treatment. They are worried that she will only get sick from side effects and sooner with additional chemotherapy. I deferred to Dr. Lord's opinion. When family asked my clinical opinion, I counseled them that Pall Care tends to look more at current functional status of patient in making a prognosis on their likely survival. I estimated that since pt has S4 cancer and has been bedbound x 1 week, that she has 8 weeks or less--regardless of whatever palliative cancer therapy she elects to try. Family does not seem surprised, but worry that pt will still elect to take oral chemotherapy. Family/emotional support: good support from pt's daughter and pt's sister Carola. Ish is quite weak and supports emotionally, but all caregiving is from pt's daughter and sister. Spiritual support: SDA. Patient Goals: 1. To continue to try chemotherapy options offered by Dr. Lord. 2. Dtr and understand that pt is dying. 3. Pt understands that options are more limited, but remains hopeful that oral chemotherapy will buy her more to enjoy her family. Problems: Resuscitation Status Resuscitation Status: CPR: Attempt Resuscitation Total time 65 minutes; >50% face to face with patient and/or family, providing counselling regarding plans and recommendations, and in care coordination with his/her medical teams. I also spent an additional 60 minutes counseling for advanced care planning with the patient/the patients family/the surrogate decision maker. Palliative Brief Note Date of Service Sep 08, 2016 . Patient Identification: Mrs. Browning is a 65 y.o. F with Stage 4 adeno CA of lung with C7 bone mets and known left malignant effusion. She had a thoracentesis 08/26 with 1707cc out. Patient had increasing SOB following evening 08/27. Patient seen by her oncologist Dr. Lord 08/30/16 and on physical exam, she had decreased breath sounds on left consistent with reaccumulated fluid. Patient reported a two day history of worsening shortness of breath, associated with fever, non-productive cough, chest pain located across entire chest with radiation to back, nausea, vomiting. She was admitted for management of acute SOB due to her large left malignant pleural effusion. Hospital Course: Dr. Cano placed a L Chest tube placed 09/01 with initial drainage 1600mL. Post procedure CXR shows partial re-expansion of left lung with fluid at base. IR could not do a successful drainage of remaining fluid due to multi-loculation and thickness of fluid, so it was felt that a PleurX catheter would not help her in future. Dr. Cano did a pleurodesis 09/06. Per Dr. Lord's notes, he is holding her chemotherapy and has recommended hospice to patient, but she was not ready for this. Per her wishes, Dr. Lord is trying to obtain an oral chemotherapy agent (lapatinib) for her. Today is Hospital Day 8, POD#2 s/p left-sided VATS with lung decortication, drainage of pleural effusion and hemothorax and talc pleurodesis. She had ~ 1300mls chest tube output in last 24hrs with continuous air leak, and CT is going to water seal today. Subjective: She is awake and alert. Daughter Chantel is by bedside. Ish is visiting but lying down on couch due to fatigue (he has brain cancer and is struggling with weakness and memory issues). Radha is still having pain at night, but forgets to ask for breakthrough pain medicine and doesnt remember to push the MACHINE OR MACHINERY MECHANIC button she had the last two nights. Exam: General: often closes eyes to rest, bed elevated 60degrees, calm, no brow furrowing but reports pain 5-6/10 at rest, more if moves upper body (affects CT pain). HEENT: hair absent 2/2 chemotx, pentecostal wasting, conjuntiva clear, mm dry. Lungs: coarse bs on right, suction sounds on left Heart: S1,S2, rrr Abdomen: flat, soft, nontender Ext: no edema 09/08/16 0500 08/31/16 Blood Culture -NO GROWTH after 5days 08/31/16 Blood Fungal Culture - NO FUNGUS isolated at one week Velia Arriola MD Sep 08, 2016 08:26
--- NOTE | 2016-09-08 10:14 | DRSVH ---
PROCEDURE: X-RAY CHEST ONE VIEW, PORTABLE ([id number]) INDICATIONS: 65 year-old female with malignant pleural effusion. TECHNIQUE: One view of the chest was acquired. COMPARISON: [facility], CR, XR CHEST 1VW (PORTABLE), 09/07/2016, 5:41. [facility], [facility], [facility]ST 1VW (PORTABLE), 09/06/2016, 16:25. [facility], CR, XR CHEST 1VW (PORT ABLE), 09/05/2016, 9:21. FINDINGS: Surgical changes and devices: Left basal and apical pleural drains remain in positions, with fissural location of the superior pleural drain better seen on comparison chest CT. Left chest wall Port-A-Ca th is again noted. Lungs and pleura: Small basal left pneumothorax has decreased in size. Widespread interstitial and ai rspace opacities persist, along with dense retrocardiac opacity. Small apical left pleural effusion p ersists. Mediastinum: Mediastinal contours appear normal. Heart size is normal. Bones and chest wall: No suspicious bony lesions. Mild mid thoracic spine dextroscoliosis is again noted. Overlying soft tissues appear unremarkable. IMPRESSION: 1. Residual basal left pneumothorax has decreased in size. Persistent compressive atelectasis of the left lower lobe. 2. Background widespread pulmonary interstitial and airspace opacities persist, consistent with pulmo nary edema and/or bronchopneumonia. Dictated by: Melvin Dalton M.D. on 09/08/2016 at 10:08 Approved by: Melvin Dalton M.D. on 09/08/2016 at 10:12
[2016-09-08] MEDS: oxyCODONE ER 20 mg ER12 Tablet PO SCH (10:29)
--- NOTE | 2016-09-08 13:07 | PATH ---
SURGICAL PATHOLOGY Attending Physician:Alek Ferrari M.D. CASE STATUS: Signed Out PATIENT NAME: ADALI TILLEY PID: [id number] : 1950 DATE COLLECTED:09/06/2016 00:00 SPECIMEN: Pleura, Biopsy CLINICAL HISTORY: LEFT PLEURAL EFFUSION STAGE IV ADCA LUNG 1). LEFT PLEURAL DEBRIS FINAL DIAGNOSIS: 1.PLEURAL BIOPSY: POORLY-DIFFERENTIATED ADENOCARCINOMA DIFFUSELY INFILTRATING FIBROFATTY TISSUE CONSISTENT WITH ORIGIN FROM THE PATIENT' S KNOWN ADENOCARCINOMA OF LUNG (SEE [id number]). ICD10 code Z85.118 GROSS DESCRIPTION: The specimen is received in formalin, labeled with the patient's name, sublabeled as left pleural debris and consists of multiple pieces of ornelas-pink and yellow rubbery tissue (3.9 x 3.2 x 1.2 cm in aggregate). Section code: (A) tissue, and serially sectioned, corporate sales representative. 09/07/16 MICRO DESCRIPTION: See diagnosis. ICD-9 CODES: CPT CODES: 1: 81981 Electronically Signed Out Carlos Ortega MD [facility] [address], [place] [address] Technical component performed at [facility], [address] [place] [address] Ave[address], [place], [address]
--- NOTE | 2016-09-08 14:36 | PCM.PNMED ---
Subjective Date of Service Sep 08, 2016 Subjective Patient is tolerating pain medication control well, tachycardia is improving. CXR yesterday showed pneumothorax today improving. She has leukocytosis, recent CXR was read as possible pneumonia again. Palliative care has worked with family and make patient DNR/DNI. Patient is drinking fluids, eating somewhat better does not have great appetite. Surgery plans to watch patient at least through the weekend Exam Vital Signs Vital Sign - Last Date Time Temp Pulse Resp B/P Pulse Ox O2 Delivery O2 Flow Rate FiO2 09/08/16 13:51 37.4 117 16 103/65 92 Nasal Cannula 4.00 Intake and Output 09/07/16 09/07/16 09/08/16 Cumulative From/Thru 15:00 23:00 07:00 08/31/16 13:48 - 09/08/16 06:30 Intake Total 511 ml 620 ml 65292 ml Output Total 560 ml 150 ml 9700 ml Balance -49 ml 470 ml 5479 ml Intake Oral 200 ml 7275 ml IV Total 511 ml 420 ml 7304 ml Packed Cells 600 ml Output Urine Total 200 ml 150 ml 4850 ml Chest Tube Drainage Total 2280 ml Drainage Total 360 ml 2370 ml Estimated Blood Loss 200 ml # Voids 10 # Bowel Movements 0 0 Exam Gen.: No acute distress HEENT NCAT Heart: Slightly tachycardic, regular, no S3-S4 murmur Lungs: Bilateral crackles left side suction noises Abdomen flat, nontender, normal bowel sounds Psych: Affect neutral mood pleasant Neuro: No focal(deficits IVs and Medications IV Fluids 70 cc/hr NSS Medications Reviewed: Medications were reviewed in detail Lab and Diagnostics Result Diagram: 09/08/16 0500 09/08/16 0500 Microbiology Blood cultures are negative 2 so far X-Rays, CTs and MRIs CXR concurrently reviewed by myself shows the Chest Tube in Place on the left. X-RAY CHEST ONE VIEW ([id number]) INDICATIONS: chest tube TECHNIQUE: One view of the chest was acquired. COMPARISON: [facility], CR, XR CHEST 1VW, 09/01/2016, 15:45. [facility], CR, XR CHEST 1VW, 08/26/2016, 17:40. [facility], CR, XR CHEST 1VW, 06/01/2016, 14:03. FINDINGS: Surgical changes and devices: Left-sided portacatheter, tip of which is in the upper SVC. Left chest tube. Lungs and pleura: No pneumothorax. Decreased, [id number] left pleural effusion. No change in moderate patchy multifocal bilateral pulmonary opacities. Mediastinum: Mediastinal contours appear normal. Heart size is normal. Bones and chest wall: No suspicious bony lesions. Overlying soft tissues appear unremarkable. IMPRESSION: 1. Decreasing left pleural effusion following left chest tube placement. 2. No change in multifocal pneumonia. Patient Name: ADALI TILLEY MR#: [id number] Location: [facility] Ordering Phys: Johanna Islas Date of Service: 09/05/16 1031 PROCEDURE: CT CHEST WITH CONTRAST ([id number]) INDICATIONS: f/u Left pleural effusion s/p chest tube TECHNIQUE: After the administration of intravenous contrast, 5 mm thick sections acquired from the pulmonary apices to the posterior costophrenic angles. 7 mm thick coronal and sagittal MIP reformats were acquired. For radiation dose reduction , the following was used: automated exposure control, adjustment of mA and/or kV according to patient size. COMPARISON: [facility], CT, CT ANGIO CHEST PE, 08/25/2016, 14:59. [facility], CT, CT CHEST W CON, 10/28/2015, 8:23. FINDINGS: Image quality: Excellent. Lungs and pleura: There is a new left-sided chest tube with the tip extending to the superior segment of the left lower lobe in the apex. There is marked decrease in the large pleural effusion seen on the prior study. There is a residual moderate amount of pleural fluid as well as a small amount of hydropneumothorax. There are also areas of loculated pleural fluid including along the left apex. There is improved aeration of the left lung with hotel administrative assistant consolidation in the left lower lobe and left lingula inferiorly as well as linear areas of presumed compressive atelectasis. Within the left upper lobe at the apex, there is an irregular mass redemonstrated, measuring approximately 3.7 x 2.0 cm in transverse dimension, similar in appearance compared to the recent study given differences in technique. There is pleural thickening and enhancement along the left hemithorax. On the right, there is a moderate size right pleural effusion which is new compared to the prior study with associated compressive atelectasis. There are also peribronchial areas of consolidation and groundglass opacities in the right lung with an apical predominance. The trachea and central airways are patent. Mediastinum: There is a left chest wall subclavian Port-A-Cath with the tip extending into the superior vena cava. Heart size is normal. No pericardial effusion. There is hilar soft tissue fullness suggestive of lymphadenopathy bilaterally with encasement and narrowing of left perihilar structures. Thoracic aorta and central pulmonary arteries are normal in size. Esophagus is normal in caliber. No hiatal hernia. Bones and chest wall: There are a few scattered sclerotic lesions in the spine including the C7 vertebral body consistent with metastatic disease. No vertebral body compression fractures. No axillary or supraclavicular adenopathy by size criteria. Thyroid gland demonstrates no discrete nodules. Abdomen: Visualized upper abdominal solid organs appear normal. Upper abdominal bowel loops are normal in caliber. IMPRESSION: 1. Decrease in size of left pleural effusion status post chest tube placement. There is persistent moderate right pleural fluid with areas of loculation as well as a small hydropneumothorax. 2. Left pleural thickening and enhancement suspicious for metastatic disease. 3. Irregular left apical mass consistent with history of lung cancer similar in size to the recent prior study. Dictated by: Nancy Barron M.D Assessment & Plan The patient is a 65-year-old female with recurrent malignant pleural effusion who came into [facility] emergency room because she was dyspneic admitted because of respiratory failure. # Acute respiratory failure-secondary to recurrent malignant pleural effusion -Chest tube was placed with significant drainage of the pleural effusion. Yesterday's CXR shows no further improvement in the pleural effusion. CT Chest this AM showed some improvement but also some right sided effusion -She is now pending TPA infusion and if not successful then pleurodesis by general surgery in the next few days: She will go to the OR tomorrow : She underwent Video assisted pleurodesis on 09/06/16. Doing well, switching her to PO pain meds today with the hope of discharge tomorrow -- Pneumothorax is noted per X-ray done by surgery. Radiological findings also significant for effusions vs pneumonia. Ordered procalcitonin. Clinically, she does not appear to have pneumonia. UA is also ordered. # Possible pneumonia- by CT scan 08/25 "possible "pneumonia - We will continue current antibiotics until her 10 day treatment course has been completed: This is completed # Oral thrush - Continue Diflucan therapy. # The patient has been anticoagulated for a DVT, in September 2015, gastronemius/ peroneal- since this was a year ago and distal do not see a need to bridge this patient before resuming warfarin, consider discussing with her primary oncologist Dr. Lord -Likely to have a hypercoagulable state due to her lung cancer. # Acute blood loss Anemia-with the patient's hemoglobin steadily dropping from 10.9 08/16, to 9.9 08/30, 2 9.0 08/31, to 7.6/.1 - Therefore 2 units of packed red blood cells were given 2 days ago with a resulting hemoglobin of 12.3, now 10.1 today. # Leukocytosis-improving with Levaquin, today 10.1. Levaquin was stopped -Will continue to complete 10 day course: Done # Prophylaxis-DVT we will place SCDs, no anticoagulation due to acute blood loss anemia. Disposition-plan is discharge after she shows improvement Pain Evaluation: Adequate Pain Control GI Prophylaxis: Not indicated VTE Prophylaxis: SCDs VTE Mechanical Devices: Intermittant Pneumatic CD Resuscitation Status: DNR/DNI:Do Not Resuscitate/Intubate Indy Schuler DO Sep 08, 2016 14:36
--- NOTE | 2016-09-08 14:46 | NUR ---
NUTRITION FOLLOW UP: ASSESS:65 YO female with nonoperative left lung cancer with mets, recently diagnosed with malignant pleural effusion now POD 2 s/p VATS with lung decortication and drainage of PE. She is tolerating the chest tube but is anorexic, taking minimal PO. She has had nearly 4 kg weight loss since 07/05/16 (2 months) = 6.53%. Code status: full. Palliative care consulted, potential discussion re changing code status. PMHx: Stage 4 left-sided lung cancer diagnosed September 2015; history of malignant pericardial effusion with tamponade requiring pericardial drainage; DVT in the right leg, on Coumadin until earlier this week, status post breast biopsy; history of Port-A-Cath; appendectomy, . DIET:General. PO intake 0-50% x 3 days LABS: Reviewed. Alb 2.0, Ca 7.5, Glu 126 MEDICATIONS: Reviewed. NUTRITION FOCUSED PHYSICAL ASSESSMENT: GI symptoms / stool: RN notes nauseaBraden: 14. Skin Integrity: No issues reported. ANTHROPOMETRICS: Current Wt: 59.36 kgBMI: 22.4 kg/m2.Admit weight: 56.36 kg IBW: 54.5 kg (103.3% IBW) ESTIMATED NEEDS (CANCER): Calories: 1409 - 1973 kcal (25 - 35 kcal / kg BW) Protein: 85 - 113 g protein (1.5 - 2.0 g / kg BW) Fluid: Approx. 1973 mL (35 mL / kg BW) NUTRITION DIAGNOSIS: 1)Inadequate oral intake related to inability to consume sufficient energy, as evidenced by poor PO intake since admit x 8 D, progressive weight loss--PERSISTS. INTERVENTION: 1) Spoke with pt at length re po intake/supplement options and encouragement of adequate kcal/protein intake. Pt wanting variety of supplements. Will send alternating jello/pudding/mag cups on trays. MONITOR/EVALUATE: PO intake, lab values, potential for nutrition support if po intake remains poor, overall POC/goals of care. F/U per high risk
[2016-09-08] MEDS: 0.9% Sodium Chloride 1,000 ML IV SCH (16:38)
--- NOTE | 2016-09-08 19:09 | NUR ---
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 Pt can be forgetful and not remember to ask for pain meds, frequently asked pt if she was comfortable. Pt up to BR twice with me and is unsteady on feet, did have some urinary incontinence and peripad in place for that. Chest tube to water seal only and new atrium in place during shift. Pt still on 4L NC and sating at 95%. Still having decreased appetite, encouraged small high calorie meals.
[2016-09-08] MEDS: Dextrose 5% 500 ML IV SCH (19:54)
[2016-09-08] MEDS: oxyCODONE ER 10 mg ER12 Tablet PO SCH (21:34)
[2016-09-09] VITALS (10 sets, daily range): BP systolic 97–117; BP diastolic 60–77; PULSE 104–124; RESP 16–20; O2SAT 92–99
--- NOTE | 2016-09-09 03:24 | NUR ---
Sleep/Pain This evening patient has been able to achieve optimal amounts of sleep so far in this shift. At beginning of shift patient complained of 4/10 pain, and scheduled 30mg Oxycodone ER at 2100 was given. Upon reassessment patient was sleeping and appeared comfortable. Pain has been reassessed throughout the shift, but patient states that she is comfortable, and denies need for additional pain medication. Will continue to monitor, and continue Q1 hour checks.
[2016-09-09 05:09] LABS: BASOPHILS % (AUTO) 0.2 % (0-3); EOSINOPHILS % (AUTO) 0.9 % (0-5); MONOCYTES % (AUTO) 10.2 % (4-12); Mean Corpuscular Hemoglobin 28.3 pg (27.0-35.0); Mean Corpuscular Volume 89.2 fL (81-100); NEUTROPHILS % (AUTO) 81.1 % (40-74); Platelet Count 315 bil/L (150-400)
--- NOTE | 2016-09-09 05:44 | PCM.PNMED ---
Subjective Date of Service Sep 09, 2016 Subjective Patient is seen and examined. She was sharing a meal. She appears to be very comfortable in the last. She has not had a bowel movement in 2 days. She denies chest pain, fevers chills nausea. [facility] patient is a DNR/DNI. Exam Vital Signs Vital Sign - Last Date Time Temp Pulse Resp B/P Pulse Ox O2 Delivery O2 Flow Rate FiO2 09/09/16 05:35 104 09/09/16 05:06 36.8 16 114/72 95 Nasal Cannula 4.00 Intake and Output 09/08/16 09/08/16 09/09/16 Cumulative From/Thru 15:00 23:00 07:00 08/31/16 13:48 - 09/09/16 05:29 Intake Total 1506 ml 1100 ml 43707 ml Output Total 9700 ml Balance 1506 ml 1100 ml 8085 ml Intake Oral 1100 ml 8375 ml IV Total 406 ml 1100 ml 8810 ml Packed Cells 600 ml Output Urine Total 4850 ml Chest Tube Drainage Total 2280 ml Drainage Total 2370 ml Estimated Blood Loss 200 ml # Voids 3 13 # Bowel Movements 0 Exam Gen.: No acute distress sitting up in bed Heart: Mildly tachycardic, no S3-S4 Lung: Anteriorly lung sounds are somewhat improving no wheezing Abdomen: Flat and nontender nondistended Neuro: No focal deficits Psych: Negative for anxiety Extremities: Good range of motion IVs and Medications IV Fluids 70 cc/hr nss Medications Reviewed: Medications were reviewed in detail Lab and Diagnostics Result Diagram: 09/09/1644409/09/16444 Microbiology Blood cultures are negative 2 so far X-Rays, CTs and MRIs [facility] Diagnostic Imaging Department [place], [place] [id number] Patient Name: ADALI TILLEY MR#: [id number] Location: [facility] [place] Ordering Phys: Alek Ferrari MD Date of Service: 09/09/16 0500 PROCEDURE: X-RAY CHEST ONE VIEW, PORTABLE ([id number]) INDICATIONS: f/u L VATS, talc, chest tube x2 TECHNIQUE: One view of the chest was acquired. COMPARISON: [facility], CR, XR CHEST 1VW (PORTABLE), 09/08/2016, 5: 49. FINDINGS: Surgical changes and devices: Left basal and apical pleural drains remain in positions, with fissural location of the superior pleural drain better seen on comparison chest CT. Left chest wall Port-A-Cath is again noted. Lungs and pleura: Small basal left pneumothorax has decreased in size. Widespread interstitial and airspace opacities persist, along with dense retrocardiac opacity. Small apical left pleural effusion persists. Mediastinum: Mediastinal contours appear normal. Heart size is normal. Bones and chest wall: No suspicious bony lesions. Mild mid thoracic spine dextroscoliosis is again noted. Overlying soft tissues appear unremarkable. IMPRESSION: 1. Stable positioning of right chest port and pleural drains. 2. Residual left basilar pneumothorax decreased in size from prior examination. 3. Persistent left basilar pneumonia or compressive atelectasis of the left lower lobe, unchanged. 4. Diffuse interstitial and airspace opacities bilaterally persist, consistent with edema and/or pneumonia. Dictated by: Lior Hilton RRA Interpreted: Jassi Roy MD on 09/09/2016 at 9:00 Transcribed by: EVE on 09/09/2016 at 9:02 Approved by: Jassi Roy M.D. on 09/09/2016 at 17:19 CXR concurrently reviewed by myself shows the Chest Tube in Place on the left. X-RAY CHEST ONE VIEW ([id number]) INDICATIONS: chest tube TECHNIQUE: One view of the chest was acquired. COMPARISON: [facility], CR, XR CHEST 1VW, 09/01/2016, 15:45. [facility], CR, XR CHEST 1VW, 08/26/2016, 17:40. [facility], CR, XR CHEST 1VW, 06/01/2016, 14:03. FINDINGS: Surgical changes and devices: Left-sided portacatheter, tip of which is in the upper SVC. Left chest tube. Lungs and pleura: No pneumothorax. Decreased, [id number] left pleural effusion. No change in moderate patchy multifocal bilateral pulmonary opacities. Mediastinum: Mediastinal contours appear normal. Heart size is normal. Bones and chest wall: No suspicious bony lesions. Overlying soft tissues appear unremarkable. IMPRESSION: 1. Decreasing left pleural effusion following left chest tube placement. 2. No change in multifocal pneumonia. Patient Name: ADALI TILLEY MR#: [id number] Location: [facility] Ordering Phys: Johanna Islas DO Date of Service: 09/05/16 1031 PROCEDURE: CT CHEST WITH CONTRAST ([id number]) INDICATIONS: f/u Left pleural effusion s/p chest tube TECHNIQUE: After the administration of intravenous contrast, 5 mm thick sections acquired from the pulmonary apices to the posterior costophrenic angles. 7 mm thick coronal and sagittal MIP reformats were acquired. For radiation dose reduction , the following was used: automated exposure control, adjustment of mA and/or kV according to patient size. COMPARISON: [facility], CT, CT ANGIO CHEST PE, 08/25/2016, 14:59. [facility], CT, CT CHEST W CON, 10/28/2015, 8:23. FINDINGS: Image quality: Excellent. Lungs and pleura: There is a new left-sided chest tube with the tip extending to the superior segment of the left lower lobe in the apex. There is marked decrease in the large pleural effusion seen on the prior study. There is a residual moderate amount of pleural fluid as well as a small amount of hydropneumothorax. There are also areas of loculated pleural fluid including along the left apex. There is improved aeration of the left lung with resident assistant cna consolidation in the left lower lobe and left lingula inferiorly as well as linear areas of presumed compressive atelectasis. Within the left upper lobe at the apex, there is an irregular mass redemonstrated, measuring approximately 3.7 x 2.0 cm in transverse dimension, similar in appearance compared to the recent study given differences in technique. There is pleural thickening and enhancement along the left hemithorax. On the right, there is a moderate size right pleural effusion which is new compared to the prior study with associated compressive atelectasis. There are also peribronchial areas of consolidation and groundglass opacities in the right lung with an apical predominance. The trachea and central airways are patent. Mediastinum: There is a left chest wall subclavian Port-A-Cath with the tip extending into the superior vena cava. Heart size is normal. No pericardial effusion. There is hilar soft tissue fullness suggestive of lymphadenopathy bilaterally with encasement and narrowing of left perihilar structures. Thoracic aorta and central pulmonary arteries are normal in size. Esophagus is normal in caliber. No hiatal hernia. Bones and chest wall: There are a few scattered sclerotic lesions in the spine including the C7 vertebral body consistent with metastatic disease. No vertebral body compression fractures. No axillary or supraclavicular adenopathy by size criteria. Thyroid gland demonstrates no discrete nodules. Abdomen: Visualized upper abdominal solid organs appear normal. Upper abdominal bowel loops are normal in caliber. IMPRESSION: 1. Decrease in size of left pleural effusion status post chest tube placement. There is persistent moderate right pleural fluid with areas of loculation as well as a small hydropneumothorax. 2. Left pleural thickening and enhancement suspicious for metastatic disease. 3. Irregular left apical mass consistent with history of lung cancer similar in size to the recent prior study. Dictated by: Nancy Barron M.D Assessment & Plan The patient is a 65-year-old female with recurrent malignant pleural effusion who came into [facility] emergency room because she was dyspneic admitted because of respiratory failure. # Acute respiratory failure-secondary to recurrent malignant pleural effusion -Chest tube was placed with significant drainage of the pleural effusion. Yesterday's CXR shows no further improvement in the pleural effusion. CT Chest this AM showed some improvement but also some right sided effusion -She is now pending TPA infusion and if not successful then pleurodesis by general surgery in the next few days: She will go to the OR tomorrow : She underwent Video assisted pleurodesis on 09/06/16. Doing well, switching her to PO pain meds today with the hope of discharge tomorrow -- Pneumothorax is noted per X-ray done by surgery 09/08/16. Radiological findings also significant for effusions vs pneumonia. Ordered procalcitonin. Clinically, she does not appear to have pneumonia. UA is also ordered. -- 09/09/16 : Improvement noted pneumothorax per today's x-ray. Also much reduced output in pleur-vac # Possible pneumonia- by CT scan 08/25 "possible "pneumonia - We will continue current antibiotics until her 10 day treatment course has been completed: This is completed # Oral thrush - Continue Diflucan therapy. We will discontinue after 7 days of therapy # The patient has been anticoagulated for a DVT, in September 2015, gastronemius/ peroneal- since this was a year ago and distal do not see a need to bridge this patient before resuming warfarin, consider discussing with her primary oncologist Dr. Lord -Likely to have a hypercoagulable state due to her lung cancer. # Acute blood loss Anemia-with the patient's hemoglobin steadily dropping from 10.9 08/16, to 9.9 08/30, 2 9.0 08/31, to 7.6/.1 - Therefore 2 units of packed red blood cells were given 2 days ago with a resulting hemoglobin of 12.3, now 8.4 today. Continue to monitor # Leukocytosis-improving with Levaquin, today 10.1. Levaquin was stopped -Will continue to complete 10 day course: Done # Prophylaxis-DVT we will place SCDs, no anticoagulation due to acute blood loss anemia. Disposition-plan is discharge after she shows improvement GI Prophylaxis: Not indicated VTE Prophylaxis: SCDs VTE Mechanical Devices: Intermittant Pneumatic CD Resuscitation Status: DNR/DNI:Do Not Resuscitate/Intubate Indy Schuler DO Sep 09, 2016 05:43
[2016-09-09] MEDS: 0.9% Sodium Chloride 1,000 ML IV SCH ×2 (07:40→20:12)
[2016-09-09] MEDS: oxyCODONE ER 20 mg ER12 Tablet PO SCH (08:49)
--- NOTE | 2016-09-09 09:03 | DRSVH ---
PROCEDURE: X-RAY CHEST ONE VIEW, PORTABLE ([id number]) INDICATIONS: f/u L VATS, talc, chest tube x2 TECHNIQUE: One view of the chest was acquired. COMPARISON: [facility], CR, XR CHEST 1VW (PORTABLE), 09/08/2016, 5:49. FINDINGS: Surgical changes and devices: Left basal and apical pleural drains remain in positions, with fissural location of the superior pleural drain better seen on comparison chest CT. Left chest wall Port-A-Ca th is again noted. Lungs and pleura: Small basal left pneumothorax has decreased in size. Widespread interstitial and ai rspace opacities persist, along with dense retrocardiac opacity. Small apical left pleural effusion p ersists. Mediastinum: Mediastinal contours appear normal. Heart size is normal. Bones and chest wall: No suspicious bony lesions. Mild mid thoracic spine dextroscoliosis is again noted. Overlying soft tissues appear unremarkable. IMPRESSION: 1. Stable positioning of right chest port and pleural drains. 2. Residual left basilar pneumothorax decreased in size from prior examination. 3. Persistent left basilar pneumonia or compressive atelectasis of the left lower lobe, unchanged. 4. Diffuse interstitial and airspace opacities bilaterally persist, consistent with edema and/or pneu monia. Dictated by: iLor Hilton RRA Interpreted: Jassi Roy MD on 09/09/2016 at 9:00 Transcribed by: EVE on 09/09/2016 at 9:02 Approved by: Jassi Roy M.D. on 09/09/2016 at 17:19
--- NOTE | 2016-09-09 10:24 | PROG NOTE ---
[address] [address] PROGRESS NOTE PATIENT: ADALI TILLEY : 1950 MR#: [id number] ADMIT: 08/31/2016 JOB ID: [id number] DATE: 09/09/2016 SUBJECTIVE: The patient is seen in followup. She has underwent a VATS with talc pleurodesis. Her chest tube is on water seal because yesterday she had an air leak. DATE: PHYSICAL EXAMINATION: Temperature 36.8, brachial blood pressure 114/72, pulse 105, respiratory rate 16. O2 sat 4 L, 95%. Chest tube today shows no air leak. She has 47 cc of serosanguineous fluid out overnight. Chest x-ray shows a residual pneumothorax in the left base decreased in size. Continued atelectasis left lower lobe. 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 IMPRESSION: Improved with resolution of her air leak and decreased pleural drainage and improvement but not complete resolution of her chest x-ray. PLAN: Will continue her chest tube on water seal. It might be able to come out tomorrow or the next day.
--- NOTE | 2016-09-09 10:34 | PCM.PNSURG ---
Subjective Date of Service: Sep 09, 2016 Visit Information: Reason for Visit: Left Pleural Effusion,Stage Iv Adca Lung Surgery/Surgery Date: Left-sided VATS with lung decortication, drainage of pleural effusion and hemothorax, and talc pleurodesis. Post-Op Day #3 Date of Admission: Aug 31, 2016 at 17:11 Hospital Day #7 Subjective: No acute events overnight. Patient is sitting up in bed and appears comfortable. She states that her chest feels tight but she endorses improvement in her breathing. She reports decreased appetite but at her baseline since admission. Pain is well controlled if she does not fall behind, this morning she states that she forgot to ask for her pain med. Denies fever, chills, n/v. . Postop General: No Shortness of Breath (on 4L nasal cannula) Gastrointestinal: Tolerating Oral Feedings (poor appetite) Pain Management: PO Neurological: Weakness Postop Activity: Ambulate without Assist Objective Vital Sign- Last 8 Hours Date Time Temp Pulse Resp B/P Pulse Ox O2 Delivery O2 Flow Rate FiO2 09/09/16 08:00 105 09/09/16 05:35 104 09/09/16 05:06 36.8 107 16 114/72 95 Nasal Cannula 4.00 09/09/16 01:14 36.3 112 16 117/77 94 Nasal Cannula 4.00 Intake and Output- Last 8 Hour 09/09/16 Cumulative From/Thru 07:00 08/31/16 13:48 - 09/09/16 05:59 Intake Total 1150 ml 97903 ml Output Total 397 ml 67716 ml Balance 753 ml 7738 ml Intake Oral 50 ml 8425 ml IV Total 1100 ml 8810 ml Packed Cells 600 ml Output Urine Total 350 ml 5200 ml Chest Tube Drainage Total 2280 ml Drainage Total 47 ml 2417 ml Estimated Blood Loss 200 ml # Voids 13 # Bowel Movements 0 0 Lungs: Clear to Auscultation (mild crackles on left), Diminished Heart: Exam Unremarkable Abdomen: Soft, Non-distended, Normoactive bowel tones Extremities: Thigh&Calf Soft/Nontender Result Diagram: 09/09/16 0445 09/09/165 Lab & Micro Results: Laboratory Tests Test 09/09/16 04:45 White Blood Count 14.5th/mm3 (3.8-10.1) Red Blood Count 2.97mil/mm3 (3.90-5.20) Hemoglobin 8.4g/dL (12.0-15.6) Hematocrit 26.5% (35.0-46.0) Mean Corpuscular Volume 89.2fL (81-100) Mean Corpuscular Hemoglobin 28.3pg (27.0-35.0) Mean Corpuscular Hemoglobin Concent 31.7% (32.0-37.0) Red Cell Distribution Width 16.5% (12.3-15.4) Platelet Count 315bil/L (150-400) Neutrophils (%) (Auto) 81.1% (40-74) Lymphocytes (%) (Auto) 6.9% (14-46) Monocytes (%) (Auto) 10.2% (4-12) Eosinophils (%) (Auto) 0.9% (0-5) Basophils (%) (Auto) 0.2% (0-3) Sodium Level 136mEq/L (134-144) Potassium Level 3.8mEq/L (3.5-5.2) Chloride Level 102mEq/L (97-108) Carbon Dioxide Level 24mmol/L (18-29) Blood Urea Nitrogen 9mg/dL (8-27) Creatinine 0.34mg/dL (0.57-1.00) Estimat Glomerular Filtration Rate 279mL/min (>59) Glucose Level 109mg/dL (60-99) Calcium Level 7.3mg/dL (8.5-10.1) Total Bilirubin 0.3mg/dL (0.0-1.2) Aspartate Amino Transf (AST/SGOT) 14U/L (0-50) Alanine Aminotransferase (ALT/SGPT) 6U/L (0-32) Alkaline Phosphatase 75U/L (25-165) Total Protein 4.2g/dL (6.4-8.4) Albumin 1.6g/dL (3.4-5.0) Microbiology 08/31/16 Blood Culture - NO GROWTH AFTER 5 DAYS 08/31/16 Blood Fungal Culture - No Fungus isolated at one week Diagnostics: X-RAY CHEST ONE VIEW, PORTABLE (09/08/16) FINDINGS: - Surgical changes and devices: Left basal and apical pleural drains remain in positions, with fissural location of the superior pleural drain better seen on comparison chest CT. Left chest wall Port-A-Cath is again noted. - Lungs and pleura: Small basal left pneumothorax has decreased in size. Widespread interstitial and airspace opacities persist, along with dense retrocardiac opacity. Small apical left pleural effusion persists. - Mediastinum: Mediastinal contours appear normal. Heart size is normal. - Bones and chest wall: No suspicious bony lesions. Mild mid thoracic spine dextroscoliosis is again noted. Overlying soft tissues appear unremarkable. IMPRESSION: 1. Residual basal left pneumothorax has decreased in size. Persistent compressive atelectasis of the left lower lobe. 2. Background widespread pulmonary interstitial and airspace opacities persist, consistent with pulmonary edema and/or bronchopneumonia. Dictated by: Melvin Dalton M.D. on 09/08/2016 at 10:08 Approved by: Melvin Dalton M.D. on 09/08/2016 at 10:12 Assessment & Plan Impression 65y/o with left malignant pleural effusion in setting of Stage IV left lung cancer on post-operative day #3 following VATS with lung decortication, drainage of pleural effusion and hemothorax, and talc pleurodesis. ~50mls chest tube output in last 24hrs. No air leak. CXR this morning showing residual left basilar pneumothorax, LLL atelectasis and b/l airspace opacities concerning for pneumonia. Xray findings likely secondary to atelectasis and/or edema. Clinically pneumonia appears less likely as patient is w/o symptoms and procalcitonin is normal. Problems: Plan -Will continue chest tube for one more day. Consider clamping this afternoon. -Repeat chest x-ray tomorrow AM. -Encourage incentive spirometry and cough. VTE Prophylaxis: SCDs Resuscitation Status: DNR/DNI:Do Not Resuscitate/Intubate Attending Statement: I agree with Dr. Islas's assessment and plan. Johanna Islas DO Sep 09, 2016 08:31 Alek Ferrari MD Sep 21, 2016 11:04
--- NOTE | 2016-09-09 11:35 | NUR ---
Social Work- Continued D/C Planning Data: EMR reviewed. Pt is on day 9 of hospitalization for left pleural effusion per H&P. Pt is not medically stable, anticipate multiple more days of hospitalization. Pt has chest tube at this time, will go to OR tomorrow. PT continues to recommend PT. Pt to return home with [facility] RN PT HOME [employer]ATION [employer]ICE [employer], set to begin 09/12/16. NURSING SCHEDULER will keep [facility] updated on discharge plan. Pt to discharge home with family to transport via POV. SW will continue to follow. Assessment: Pt who would benefit from [facility] RN PT HOME [employer]. Plan: Pt to discharge home with [facility] RN PT HOME RESTORATION SERVICE [employer] beginning 09/12/16. NURSING SCHEDULER will keep [facility] updated on discharge plan. Pt to discharge home with family to transport via POV. SW will continue to follow. ARLENE Hutchison
[2016-09-09 13:06] LABS: APPEARANCE,URINE CLEAR (CLEAR,HAZY); COLOR,URINE YELLOW (YELLOW)
[2016-09-09 13:07] LABS: OCCULT BLOOD,URINE NEGATIVE (NEGATIVE); UROBILINOGEN,URINE NORMAL (NORMAL)
--- NOTE | 2016-09-09 14:02 | PCM.PALLBR ---
Palliative Care Recommendation Summary of palliative recommendations: Symptom management (Pain/other): Pt reports better pain control today. Feels she is getting her oral breakthrough pain meds more frequently. 1. Pain: for HS pain--> On 09/07 night dose increased to 30mg oxycodone ER with continuation of ambien and [employer] IN[employer]. 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 Arriola counseled staff radiologist to regularly ask pt about her pain and offer BTP meds regularly. 09/09: Recommend Oxycodone ER and oxycodone IR for home use on discharge. DPOA/Advanced Directives/POLST: 1. Full code changed to DNR/DNI on 09/08 after long discussion with POA daughter Chantel and pt's Ish. Note: Ish was not elected as POA because of his concurrent illness of brain cancer that has affected his health and memory. However, he doesn't always remember this fact or past paperwork done due to his condition and insisted on co-signing the POLST with his daughter. Chantel did not want him to feel excluded, so there are two signatures on front and back of POLST. Original in paper chart now and copies given to both Chantel and Ish. 2. DPOA: Chantel confirmed that she is HCPOA for her Mom. Paperwork in chart signed by patient 10/12/15. The alternate POA is "an officer of the [employer]," per paperwork. 09/[address] Arriola: This occurred in conference room as Radha wanted to sleep. Family had a lot of questions on Radha's prognosis and their concern about continuing with cancer treatment. They are worried that she will only get sick from side effects and sooner with additional chemotherapy. I deferred to Dr. Lord's opinion. When family asked my clinical opinion, I counseled them that Pall Care tends to look more at current functional status of patient in making a prognosis on their likely survival. I estimated that since pt has S4 cancer and has been bedbound x 1 week, that she has 8 weeks or less--regardless of whatever palliative cancer therapy she elects to try. Family does not seem surprised, but worry that pt will still elect to take oral chemotherapy. Family/emotional support: good support from pt's daughter and pt's sister Carola. Ish is quite weak and supports emotionally, but all caregiving is from pt's daughter and sister. Spiritual support: SDA. Patient Goals: 1. To continue to try chemotherapy options offered by Dr. Lord. 2. Dtr and understand that pt is dying. 3. Pt understands that options are more limited, but remains hopeful that oral chemotherapy will buy her more to enjoy her family. Disposition: See Case Management notes. Pt will likely go home after CT removed and Surgery feels she is surgically stable. Likely to be sometime this weekend. Problems: Resuscitation Status Resuscitation Status: DNR/DNI:Do Not Resuscitate/Intubate Total time 15 minutes; >50% face to face with patient and/or family, providing counselling regarding plans and recommendations, and in care coordination with his/her medical teams. Palliative Brief Note Date of Service Sep 09, 2016 Velia Arriola MD Sep 09, 2016 14:02
--- NOTE | 2016-09-09 14:24 | NUR ---
ACTIVITY/O2/PAIN/CHEST TUBES Patient got up to BR and worked with therapy today. 1 person assist with FWW, fatigues easily but was able to ambulate around bed with rest break. Increased O2 needs with ambulation, O2 was increased to 6LPM during activity only and then turned back down to 4 LPM O2. At rest, O2 sats are 95%. Hesitant to use incentive spirometer due to pain. Medicated with scheduled oxycontin and PRN oxycodone 10mg to help control pain. Dressing over both chest tubes to left lateral side/back are C/D/I. Chest tube system is patent with no air leak. Continue to monitor hourly.
[2016-09-09] MEDS: Dextrose 5% 500 ML IV SCH (17:33)
--- NOTE | 2016-09-09 21:00 | CCS NOTE ---
[facility] [address] [place] [address], [address] [address] MEDICAL ONCOLOGY OFFICE NOTE PATIENT: ADALI TILLEY : 1950 MR#: [id number] DATE: 08/31/2016 JOB ID: [id number] DATE: 09/09/2016 SUBJECTIVE: Patient is in bed and has multiple family members present, including her sister and her daughter and . Her brother has come in from [place]. She has not had any fevers. The chest tube has had significantly less output of about less than 100 cc in the last 24 hours. Her oxygenation is stable with 2-3 L of oxygen and she appears reasonably comfortable. Dr. Arriola of palliative care and myself talked over the phone regarding the code status and we all, including the patient and family, agreed that this should be changed to DNR/DNI, which has occurred yesterday. LABORATORY STUDIES: Show anemia that has gotten worse with hemoglobin around 8-1/2. Otherwise, stable lab studies. On limited exam, she has no rash, no abdominal tenderness. No peripheral edema. Heart regular. No oral cavity lesion. ASSESSMENT AND PLAN: A 55-year-old, unfortunate lady who is a never smoker with stage IV lung adenocarcinoma, presenting almost exactly one year ago with malignant pericardial effusion with near tamponade physiology. She has been managed with several lines of treatment since then, but her condition has deteriorated over the past couple of months. She underwent VATS decortication and evacuation of malignant pleural effusion that was loculated. Has two chest tubes and has talc pleurodesis. I am pleased to see that chest tube also has substantially decreased. We had a good family conference this evening and family has come to the conclusion with an open discussion with the patient that they would prefer not to pursue the oral agent, as the next alternative to treatment, but rather focus on palliative care alone with hospice which we had discussed several times in the recent weeks. I had mentioned that at any time, if she decides that she would rather transition to comfort measures only, that this is certainly is appropriate at the functional status that she is at. I am hopeful that the chest tube could be removed tomorrow and she could be discharged with hospice home this weekend. Her next appointment with me in the clinic can be canceled next Monday and I am available as needed. The patient is very satisfied with the current decision-making.
[2016-09-09] MEDS: oxyCODONE ER 10 mg ER12 Tablet PO SCH (21:54)
--- NOTE | 2016-09-10 00:14 | NUR ---
PAIN/SLEEP/MENTATION At beginning of shift, this nurse was notified by patients family that patient did not sleep well throughout the night. During the previous night, patient stated pain was controlled, and did not complain of insomnia or discomfort the entire shift. Discussed with the patient today the importance of letting the nurse know if pain is not being managed, or if having troubles to sleep. Patient agrees and states that she is not always very "direct." Both oxycodone 30mg ER scheduled, and Ambien was offered at 2030. Patient refused medication and asked for both to be given at a later time. At approx 2200 oxycodone 30mg and Ambien was offered again. Patient initially refused the Ambien, but then remembered shortly after that she had asked for it. Only 20mg of the oxycodone was given per patient request. Patient appears to be frequently confused. Will continue to reorient. Care continues.
[2016-09-10 01:17] VITALS: BP 111/74; PULSE 108; RESP 16; O2SAT 96
[2016-09-10 06:19] VITALS: PULSE 108
[2016-09-10 06:50] LABS: BASOPHILS % (AUTO) 0.3 % (0-3); EOSINOPHILS % (AUTO) 1.4 % (0-5); MONOCYTES % (AUTO) 10.1 % (4-12); Mean Corpuscular Hemoglobin 28.6 pg (27.0-35.0); Mean Corpuscular Volume 88.9 fL (81-100); NEUTROPHILS % (AUTO) 79.9 % (40-74); Platelet Count 377 bil/L (150-400)
[2016-09-10 06:52] VITALS: BP 104/68; PULSE 103; RESP 16; O2SAT 92
[2016-09-10] MEDS: oxyCODONE ER 20 mg ER12 Tablet PO SCH (08:25)
[2016-09-10 09:14] VITALS: PULSE 107
--- NOTE | 2016-09-10 09:19 | DRSVH ---
PROCEDURE: X-RAY CHEST ONE VIEW, PORTABLE ([id number]) INDICATIONS: f/u VATS, chest tube x2 TECHNIQUE: One view of the chest was acquired. COMPARISON: [facility], CR, XR CHEST 1VW (PORTABLE), 09/09/2016, 5:38. FINDINGS: Surgical changes and devices: Unchanged appearance since yesterday Lungs and pleura: No pleural effusions or pneumothorax. Mildly increased right upper lobe patchy con solidative opacity suggestive day. Elsewhere, no interval change including dense retrocardiac consoli dation and right basilar and left upper lobe patchy consolidation Mediastinum: Mediastinal contours appear normal. Heart size is normal. Bones and chest wall: No suspicious bony lesions. Overlying soft tissues appear unremarkable. Late ral curvature of the spine. IMPRESSION: Mildly increased right upper lobe patchy consolidative opacity since yesterday. Elsewhere, no interva l change as above. Dictated by: Olman Barlow M.D. on 09/10/2016 at 9:14 Approved by: Olman Barlow M.D. on 09/10/2016 at 9:17
[2016-09-10 11:05] VITALS: BP 110/66; PULSE 111; RESP 20; O2SAT 93
--- NOTE | 2016-09-10 11:34 | PCM.PNSURG ---
Subjective Date of Service: Sep 10, 2016 Visit Information: L VATS Decortication, Pleurodesis 09/07/2016 Post-Op Day # 3 Date of Admission: Aug 31, 2016 at 17:11 Hospital Day # 11 Subjective: Feeling low. No new respiratory complaints Objective Vital Sign- Last 8 Hours Date Time Temp Pulse Resp B/P Pulse Ox O2 Delivery O2 Flow Rate FiO2 09/10/16 11:05 36.8 111 20 110/66 93 Nasal Cannula 4.00 09/10/16 09:14 107 09/10/16 08:35 Supplement Oxygen 09/10/16 06:52 36.5 103 16 104/68 92 Nasal Cannula 2.00 09/10/16 06:19 108 Intake and Output- Last 8 Hour 09/10/16 Cumulative From/Thru 07:00 08/31/16 13:48 - 09/10/16 06:47 Intake Total 800 ml 89750 ml Output Total 30 ml 96226 ml Balance 770 ml 9710 ml Intake Oral 8925 ml IV Total 800 ml 91614 ml Packed Cells 600 ml Output Urine Total 5450 ml Chest Tube Drainage Total 30 ml 2310 ml Drainage Total 2417 ml Estimated Blood Loss 200 ml # Voids 15 # Bowel Movements 0 Chest: CT with minimal output, No airleak. Result Diagram: 09/10/16 0630 09/10/16 0630 Assessment & Plan Impression Doing well Problems: Plan Removed Anterior/Basal tube today Will repeat Chest Xray later today. As long as the output continues to be low and lung stays up, might be able to remove the other tube tomorrow VTE Prophylaxis: SCDs Resuscitation Status: DNR/DNI:Do Not Resuscitate/Intubate Raul Henderson MD Sep 10, 2016 11:34
[2016-09-10] MEDS: 0.9% Sodium Chloride 1,000 ML IV SCH (11:37)
--- NOTE | 2016-09-10 12:29 | DRSVH ---
PROCEDURE: X-RAY CHEST ONE VIEW, PORTABLE ([id number]) INDICATIONS: f/u After CT removal TECHNIQUE: One view of the chest was acquired. COMPARISON: [facility], CR, XR CHEST 1VW (PORTABLE), 09/10/2016, 7:37. FINDINGS: Surgical changes and devices: Unchanged left chest port, and left chest tube. One of the chest tubes has been removed Lungs and pleura: There is interval improvement in the right upper lobe patchy consolidation arguing for resulting atelectasis/aspiration. Remaining examination unchanged. No pneumothorax Mediastinum: Mediastinal contours appear normal. Heart size is normal. Bones and chest wall: No suspicious bony lesions. Overlying soft tissues appear unremarkable. IMPRESSION: Mild improvement in right upper lobe patchy consolidation arguing for resolving atelectas is/aspiration. Interval removal of one of the left chest tubes. No pneumothorax. Elsewhere, grossly unchanged examination Dictated by: Olamn Barlow M.D. on 09/10/2016 at 12:25 Approved by: Olman Barlow M.D. on 09/10/2016 at 12:28
--- NOTE | 2016-09-10 13:43 | NUR ---
COGNITION During AM assessment, patient was disoriented. Having trouble putting straw to mouth to take a drink of water. Asking if there were kids in the room (No one else was in the room). Speech wasn't making sense at times. All VSS. When family came in, there were very concerned about patient's change in condition from day prior. Paged MD to see patient and speak with family. Patient had lots of oral pain medication and ambien yesterday which may be contributing to patient's change in condition. Continue to monitor.
--- NOTE | 2016-09-10 15:44 | NUR ---
NUTRITION FOLLOW UP: ASSESS:65 YO female with nonoperative left lung cancer with mets, recently diagnosed with malignant pleural effusion now POD 4 s/p VATS with lung decortication and drainage of PE. She is tolerating the chest tube but is anorexic, taking minimal PO. She has had nearly 4 kg weight loss since 07/05/16 (2 months) = 6.53. Her mentation is very poor today. Speech Therapy downgraded her diet to mechanical soft, thin liquids. Code status changed to DNR / DNI. PMHx: Stage 4 left-sided lung cancer diagnosed September 2015; history of malignant pericardial effusion with tamponade requiring pericardial drainage; DVT in the right leg, on Coumadin until earlier this week, status post breast biopsy; history of Port-A-Cath; appendectomy, . DIET:Mechanical soft, thin liquids. Po intake very poor. LABS: BUN 7, Cr 0.32, Glu 111, Ca 7.7. MEDICATIONS: Reviewed. NUTRITION FOCUSED PHYSICAL ASSESSMENT: GI symptoms / stool: No BM since admit x 10 D.Javier: 16. Skin Integrity: No issues reported. ANTHROPOMETRICS: Current Wt: 61.12 kgBMI: 23.0 kg/m2.Admit weight: 56.36 kg IBW: 54.5 kg (103.3% IBW) ESTIMATED NEEDS (CANCER): Calories: 1409 - 1973 kcal (25 - 35 kcal / kg BW) Protein: 85 - 113 g protein (1.5 - 2.0 g / kg BW) Fluid: Approx. 1973 mL (35 mL / kg BW) NUTRITION DIAGNOSIS: 1)Inadequate oral intake related to inability to consume sufficient energy, as evidenced by poor PO intake since admit x 10 D, progressive weight loss - PERSISTS. INTERVENTION: 1) RD on 09/08 spoke with pt at length re po intake/supplement options and encouragement of adequate kcal/protein intake. Pt wanting variety of supplements. Will send alternating jello/pudding/mag cups on trays. 2)Recommend MD discuss nutrition support with family, as it appears unlikely pt. will be able to meet nutrient needs orally. MONITOR/EVALUATE: PO intake, lab values, potential for nutrition support if po intake remains poor, overall POC/goals of care. F/U per high risk
[2016-09-10] MEDS ORDERED: Furosemide 10 mg/mL 2 mL Inj IV ONE (17:00)
--- NOTE | 2016-09-10 17:00 | NUR ---
Responded to RN call patient saturation was 87% on 7L oxymask. I turned her oxygen up to 15L for a saturation of 91% HR 125. Patient breathing in the 40's. Doctor paged. I also called charge on 2nd floor to come see patient. chest xray done. I suggested patient go up to PCC to get on high flow to meet oxygen demands. Patient up 5kg since admit. Doctor asked nurse to turn off IV fluids. Patient is a DNAR/DNI. Time spent 30 minutes.
[2016-09-10] MEDS ORDERED: HYDROmorphone 1 mg/mL Inj ONE (17:01)
[2016-09-10] MEDS ORDERED: Acetaminophen IV 1,000 MG in IV Premix 1 EACH IV PRN (17:05)
[2016-09-10] MEDS ORDERED: HYDROmorphone 1 mg/mL Inj IVPUSH PRN (17:05)
--- NOTE | 2016-09-10 17:05 | DRSVH ---
PROCEDURE: X-RAY CHEST ONE VIEW, PORTABLE ([id number]) INDICATIONS: SHORT OF BREATH/ INCREASED HEART RATE TECHNIQUE: One view of the chest was acquired. COMPARISON: [facility], CR, XR CHEST 1VW (PORTABLE), 09/10/2016, 11:23. FINDINGS: Surgical changes and devices: Left chest tube, left chest port appear unchanged. Lungs and pleura: Diffuse left basilar consolidation and surrounding groundglass opacities. Unchanged diffuse right lung ground glass and ill-defined opacities. No definite new focal consolidat ion Mediastinum: Mediastinal contours appear normal. Heart size is normal. Bones and chest wall: No suspicious bony lesions. Overlying soft tissues appear unremarkable. IMPRESSION: Overall, no interval change since earlier same day Dictated by: Olman Barlow M.D. on 09/10/2016 at 17:03 Approved by: Olman Barlow M.D. on 09/10/2016 at 17:04
--- NOTE | 2016-09-10 17:28 | NUR ---
RESP DISTRESS Patient's O2 sats were 88% on 4 LPM via NC, switched over to Oxymask and increased to 6LPM. O2 sats maintained @ 92% for a few hours but then O2 sats dropped to 87% again, increased to 7 LPM but O2 sats were still only 87%. Patient diaphoretic. MD and called RT to come assess patient. Paged Dr Henderson as well, after RT increased oxymask to 15LPM. STAT CXR obtained. No change from previous xray today. Chest tube patent with no air leak. D/c'd IV fluids. Got new orders for IV pain medication, as patient was unable be alert enough to swallow oral oxycodone safely. IV lasix and IV dilaudid administered. Placed new fentanyl patch on patient's Left shoulder. Continues with 15 LPM via oxymask, O2 sats vary from 92-96%. HR still in 120's. Continue to monitor patient closely.
[2016-09-10] MEDS ORDERED: Artificial Tears 15 mL Ophthalmic Solution AFFECT_EYE PRN (18:35)
[2016-09-10] MEDS ORDERED: Ondansetron 2 mg/mL 2 mL Inj IVPUSH PRN (18:35)
[2016-09-10] MEDS: Dextrose 5% 500 ML IV SCH (19:54)
[2016-09-10 21:05] VITALS: BP 105/76; PULSE 123; RESP 18; O2SAT 93
[2016-09-10] MEDS: LORazepam 2 mg/mL Inj ANXIETY/AGIT IVPUSH PRN (23:15)
[2016-09-11] VITALS (9 sets, daily range): BP systolic 115–117; BP diastolic 70–73; PULSE 110–125; RESP 20–24; O2SAT 91–94
[2016-09-11] MEDS: 0.9% Sodium Chloride 1,000 ML IV SCH ×2 (01:48→10:18)
[2016-09-11] MEDS: LORazepam 2 mg/mL Inj ANXIETY/AGIT IVPUSH PRN ×4 (03:02→13:02)
--- NOTE | 2016-09-11 04:17 | NUR ---
Patient status Pt. is on 15 liters of oxygen via oxymask. Pt. is transitioning to comfort care. Pt. has been given morphine and ativan throughout the night for pain and anxiety. Will continue to monitor.
[2016-09-11 05:31] LABS: BASOPHILS % (AUTO) 0.2 % (0-3); EOSINOPHILS % (AUTO) 0.3 % (0-5); MONOCYTES % (AUTO) 9.6 % (4-12); Mean Corpuscular Hemoglobin 28.2 pg (27.0-35.0); Mean Corpuscular Volume 88.9 fL (81-100); NEUTROPHILS % (AUTO) 84.4 % (40-74); Platelet Count 466 bil/L (150-400)
--- NOTE | 2016-09-11 05:42 | PCM.PNMED ---
Subjective Date of Service Sep 10, 2016 Subjective Patient has not done well today. She has needed fluids last 2 days due to tachycardia. Today one of the chest tubes were removed. She was on PO pain control per palliative care. She had an acute episode of SOB and needed 15L mask. A follow up CX was performed and surgery came and checked the chest tube. Family was counselled on the benefits and risks of moving patient up to CCU, they have asked for comfort measures only. We explained to them that we will never know the cause of her acute deterioration as ARDS, PE etc have not been ruled out and they understand this and are agreeable with this. Patient was delirious earlier in the day and she became more agitated with the acute episode. Exam Vital Signs Vital Sign - Last Date Time Temp Pulse Resp B/P Pulse Ox O2 Delivery O2 Flow Rate FiO2 09/11/16 00:37 Supplement Oxygen Chest Tubes 09/10/16 21:05 37.1 123 18 105/76 93 15.00 Intake and Output 09/10/16 09/10/16 09/11/16 Cumulative From/Thru 15:00 23:00 07:00 08/31/16 13:48 - 09/11/16 05:15 Intake Total 200 ml 766 ml 72 ml 15957 ml Output Total 300 ml 925 ml 09951 ml Balance -100 ml -159 ml 72 ml 9523 ml Intake Oral 200 ml 30 ml 9155 ml IV Total 736 ml 72 ml 69795 ml Packed Cells 600 ml Output Urine Total 300 ml 925 ml 6675 ml Chest Tube Drainage Total 2310 ml Drainage Total 2417 ml Estimated Blood Loss 200 ml # Voids 15 # Bowel Movements 0 Exam General: Agitated HEENT: thin appearing Heart: Tachycardic, no s3/s4 Lungs: Disffuse rales and wheezing Abdomen: Flat, non distended Ext: Neg for edema IVs and Medications Medications Reviewed: Medications were reviewed in detail Lab and Diagnostics [facility] Diagnostic [place] [address] Patient Name: ADALI TILLEY MR#: [id number] Location: [facility] Ordering Phys: Johanna Islas DO Date of Service: 09/10/16 0500 PROCEDURE: X-RAY CHEST ONE VIEW, PORTABLE ([id number]) INDICATIONS: f/u VATS, chest tube x2 TECHNIQUE: One view of the chest was acquired. COMPARISON: [facility], CR, XR CHEST 1VW (PORTABLE), 09/09/2016, 5: 38. FINDINGS: Surgical changes and devices: Unchanged appearance since yesterday Lungs and pleura: No pleural effusions or pneumothorax. Mildly increased right upper lobe patchy consolidative opacity suggestive day. Elsewhere, no interval change including dense retrocardiac consolidation and right basilar and left upper lobe patchy consolidation Mediastinum: Mediastinal contours appear normal. Heart size is normal. Bones and chest wall: No suspicious bony lesions. Overlying soft tissues appear unremarkable. Lateral curvature of the spine. IMPRESSION: Mildly increased right upper lobe patchy consolidative opacity since yesterday. Elsewhere, no interval change as above. Dictated by: Olman Barlow M.D. on 09/10/2016 at 9:14 Approved by: Olman Barlow M.D. on 09/10/2016 at 9:17 Result Diagram: 09/11/16 0500 09/10/16 0630 Microbiology Blood cultures are negative 2 so far X-Rays, CTs and MRIs [facility] Diagnostic Imaging Department [place], [place] [id number] Patient Name: ADALI TILLEY MR#: [id number] Location: [facility] Ordering Phys: Alek Ferrari MD Date of Service: 09/09/16 0500 PROCEDURE: X-RAY CHEST ONE VIEW, PORTABLE ([id number]) INDICATIONS: f/u L VATS, talc, chest tube x2 TECHNIQUE: One view of the chest was acquired. COMPARISON: [facility], CR, XR CHEST 1VW (PORTABLE), 09/08/2016, 5: 49. FINDINGS: Surgical changes and devices: Left basal and apical pleural drains remain in positions, with fissural location of the superior pleural drain better seen on comparison chest CT. Left chest wall Port-A-Cath is again noted. Lungs and pleura: Small basal left pneumothorax has decreased in size. Widespread interstitial and airspace opacities persist, along with dense retrocardiac opacity. Small apical left pleural effusion persists. Mediastinum: Mediastinal contours appear normal. Heart size is normal. Bones and chest wall: No suspicious bony lesions. Mild mid thoracic spine dextroscoliosis is again noted. Overlying soft tissues appear unremarkable. IMPRESSION: 1. Stable positioning of right chest port and pleural drains. 2. Residual left basilar pneumothorax decreased in size from prior examination. 3. Persistent left basilar pneumonia or compressive atelectasis of the left lower lobe, unchanged. 4. Diffuse interstitial and airspace opacities bilaterally persist, consistent with edema and/or pneumonia. Dictated by: Lior Hilton RRA Interpreted: Jassi Roy MD on 09/09/2016 at 9:00 Transcribed by: EVE on 09/09/2016 at 9:02 Approved by: Jassi Roy M.D. on 09/09/2016 at 17:19 CXR concurrently reviewed by myself shows the Chest Tube in Place on the left. X-RAY CHEST ONE VIEW ([id number]) INDICATIONS: chest tube TECHNIQUE: One view of the chest was acquired. COMPARISON: [facility], CR, XR CHEST 1VW, 09/01/2016, 15:45. [facility], CR, XR CHEST 1VW, 08/26/2016, 17:40. [facility], CR, XR CHEST 1VW, 06/01/2016, 14:03. FINDINGS: Surgical changes and devices: Left-sided portacatheter, tip of which is in the upper SVC. Left chest tube. Lungs and pleura: No pneumothorax. Decreased, [id number] left pleural effusion. No change in moderate patchy multifocal bilateral pulmonary opacities. Mediastinum: Mediastinal contours appear normal. Heart size is normal. Bones and chest wall: No suspicious bony lesions. Overlying soft tissues appear unremarkable. IMPRESSION: 1. Decreasing left pleural effusion following left chest tube placement. 2. No change in multifocal pneumonia. Patient Name: ADALI TILLEY MR#: [id number] Location: [facility] [place] Ordering Phys: Johanna Islas Date of Service: 09/05/16 1031 PROCEDURE: CT CHEST WITH CONTRAST ([id number]) INDICATIONS: f/u Left pleural effusion s/p chest tube TECHNIQUE: After the administration of intravenous contrast, 5 mm thick sections acquired from the pulmonary apices to the posterior costophrenic angles. 7 mm thick coronal and sagittal MIP reformats were acquired. For radiation dose reduction , the following was used: automated exposure control, adjustment of mA and/or kV according to patient size. COMPARISON: [facility], CT, CT ANGIO CHEST PE, 08/25/2016, 14:59. [facility], CT, CT CHEST W CON, 10/28/2015, 8:23. FINDINGS: Image quality: Excellent. Lungs and pleura: There is a new left-sided chest tube with the tip extending to the superior segment of the left lower lobe in the apex. There is marked decrease in the large pleural effusion seen on the prior study. There is a residual moderate amount of pleural fluid as well as a small amount of hydropneumothorax. There are also areas of loculated pleural fluid including along the left apex. There is improved aeration of the left lung with front end assistant consolidation in the left lower lobe and left lingula inferiorly as well as linear areas of presumed compressive atelectasis. Within the left upper lobe at the apex, there is an irregular mass redemonstrated, measuring approximately 3.7 x 2.0 cm in transverse dimension, similar in appearance compared to the recent study given differences in technique. There is pleural thickening and enhancement along the left hemithorax. On the right, there is a moderate size right pleural effusion which is new compared to the prior study with associated compressive atelectasis. There are also peribronchial areas of consolidation and groundglass opacities in the right lung with an apical predominance. The trachea and central airways are patent. Mediastinum: There is a left chest wall subclavian Port-A-Cath with the tip extending into the superior vena cava. Heart size is normal. No pericardial effusion. There is hilar soft tissue fullness suggestive of lymphadenopathy bilaterally with encasement and narrowing of left perihilar structures. Thoracic aorta and central pulmonary arteries are normal in size. Esophagus is normal in caliber. No hiatal hernia. Bones and chest wall: There are a few scattered sclerotic lesions in the spine including the C7 vertebral body consistent with metastatic disease. No vertebral body compression fractures. No axillary or supraclavicular adenopathy by size criteria. Thyroid gland demonstrates no discrete nodules. Abdomen: Visualized upper abdominal solid organs appear normal. Upper abdominal bowel loops are normal in caliber. IMPRESSION: 1. Decrease in size of left pleural effusion status post chest tube placement. There is persistent moderate right pleural fluid with areas of loculation as well as a small hydropneumothorax. 2. Left pleural thickening and enhancement suspicious for metastatic disease. 3. Irregular left apical mass consistent with history of lung cancer similar in size to the recent prior study. Dictated by: Nancy Barron M.D Assessment & Plan The patient is a 65-year-old female with recurrent malignant pleural effusion who came into [facility] emergency room because she was dyspneic admitted because of respiratory failure. # Acute respiratory failure-secondary to recurrent malignant pleural effusion -Chest tube was placed with significant drainage of the pleural effusion. Yesterday's CXR shows no further improvement in the pleural effusion. CT Chest this AM showed some improvement but also some right sided effusion -She is now pending TPA infusion and if not successful then pleurodesis by general surgery in the next few days: She will go to the OR tomorrow : She underwent Video assisted pleurodesis on 09/06/16. Doing well, switching her to PO pain meds today with the hope of discharge tomorrow -- Pneumothorax is noted per X-ray done by surgery 09/08/16. Radiological findings also significant for effusions vs pneumonia. Ordered procalcitonin. Clinically, she does not appear to have pneumonia. UA is also ordered. -- 09/09/16 : Improvement noted pneumothorax per today's x-ray. Also much reduced output in pleur-vac -09/10/16: Patient's chest tube was removed this AM, Dr. Henderson will remove the other one 09/11/16. Patient had an acute episode of dyspnea and needed 15L. DDX includes PE, dissection, ARDS and aspiration. Earlier, her CXR findings were thought to be due to atelectasis vs aspiration, R sided consolidation thought to be improving. She has needed fluids last 2 days due to tachycardia. Today one of the chest tubes were removed. She was on PO pain control per palliative care. She had an acute episode of SOB and needed 15L mask. A follow up CX was performed and surgery came and checked the chest tube. Family was counselled on the benefits and risks of moving patient up to CCU, they have asked for comfort measures only. We explained to them that we will never know the cause of her acute deterioration as ARDS, PE etc have not been ruled out and they understand this and are agreeable with this. Patient was delirious earlier in the day and she became more agitated with the acute episode. - Ativan PRN, morphine PRN orders were put in. Tele was discontinued. Comfort measures were provided. # Possible pneumonia- by CT scan 08/25 "possible "pneumonia - We will continue current antibiotics until her 10 day treatment course has been completed: This is completed # Oral thrush - Continue Diflucan therapy. We will discontinue after 7 days of therapy # The patient has been anticoagulated for a DVT, in September 2015, gastronemius/ peroneal- since this was a year ago and distal do not see a need to bridge this patient before resuming warfarin, consider discussing with her primary oncologist Dr. Lord -Likely to have a hypercoagulable state due to her lung cancer. # Acute blood loss Anemia-with the patient's hemoglobin steadily dropping from 10.9 08/16, to 9.9 08/30, 2 9.0 08/31, to 7.6/29.1 - Therefore 2 units of packed red blood cells were given 2 days ago with a resulting hemoglobin of 12.3, now 8.4 today. Continue to monitor # Leukocytosis-improving with Levaquin, today 10.1. Levaquin was stopped -Will continue to complete 10 day course: Done # Prophylaxis-DVT we will place SCDs, no anticoagulation due to acute blood loss anemia. Disposition-plan is discharge after she shows improvement GI Prophylaxis: Not indicated VTE Prophylaxis: SCDs VTE Mechanical Devices: Intermittant Pneumatic CD Resuscitation Status: DNR/DNI:Do Not Resuscitate/Intubate Indy Schuler DO Sep 11, 2016 05:42
[2016-09-11] MEDS ORDERED: LORazepam 100 mg/100 mL NS 100 MG in IV Premix 1 EACH IV SCH (08:40)
[2016-09-11] MEDS ORDERED: Morphine 100 mg/100 mL NS 100 MG in IV Premix 1 EACH IV SCH (08:40)
--- NOTE | 2016-09-11 09:00 | NUR ---
COMFORT CARE/MD NOTIFICATION HR-122; RR-Low to mid 20's. On O2 at 15 LPM via an oxymask. Via FELDT scale patients pain level is 5/10 at this time. Morphine is not yet due at this time. Chest tube is to waterseal at this time. Dr. Schuler made aware. New orders received to start patient on a Morphine and Ativan gtt. Family was made aware of this and they are consenting to start the medications.
--- NOTE | 2016-09-11 09:30 | NUR ---
ATIVAN/MORPHINE GTT. Orders received to start Morphine and Ativan infusions. Per protocol Morphine infusion initiated at 1 mg/hr. Ativan gtt. initiated at 1 mg/hr. Care continues.
[2016-09-11] MEDS: Atropine 1% 5 mL Ophthalmic Solution PO PRN ×2 (12:20→13:54)
--- NOTE | 2016-09-11 12:22 | NUR ---
COMFORT/CARE Patient is incontinent. Skin and oral care rendered. IFC inserted per protocol. Repositioned for comfort. HR-120's. RR-22-24. Patient has been getting Morphine IV for BTP. Per protocol infusion was increased by 20 %=1.2 mg/hr. Dose double checked with Carolyne العراقي RN. Care continues. Addendum: 09/11/16 at 1331 by MARS HERNANDEZ RN COMFORT/CARE HR-120's; RR-Low to mid 20's. Patient is restless and groaning per family. Per protocol infusion was increased by 50 %=2 mg/hr. Will continue to monitor. Addendum: 09/11/16 at 1622 by MARS HERNANDEZ RN ADDENDUM: Ativan infusion was increased to 50 % per protocol.
--- NOTE | 2016-09-11 15:00 | NUR ---
Social Work Note: Continued Discharge Planning Data& Assessment: Per MD pt has been transitioned to comfort care and is anticipated to pass within 24 hours. SW to continue to follow for any needs. Plan: Pt is on comfort care. SW to continue to follow for any needs. ARLENE Franco
[2016-09-11] MEDS: Dextrose 5% 500 ML IV SCH (17:13)
--- NOTE | 2016-09-11 17:27 | NUR ---
COMFORT/CARE HR-110's; RR-20; SBP-117. Morphine gtt. is ongoing at 1.4 mg/hr at this time and Ativan gtt. is ongoing at 2 mg/hr at this time. Via FELDT scale patients pain level is 0/10. Continues to be on O2 at 5-7 LPM via an oxymask. Patient has been gurgly. Scopolamine patch placed on. IFC intact at this time and draining to isis colored UO. Chest tube in place. No new drainage at this time. Turned as needed. Skin care and oral care rendered. Care continues.
--- NOTE | 2016-09-11 17:33 | NUR ---
DONOR REFERRAL NUMBER Referral number is [id number].
--- NOTE | 2016-09-11 20:30 | PCM.PNMED ---
Subjective Date of Service Sep 11, 2016 Subjective Patient is seen and examined. Family's questions were answered. They are staying nearby the patient. Chest x-ray family agreed for comfort measures as patient is on morphine drip, when necessary Ativan, scopolamine. She appears to be mainly stable aside from the tachycardia. He is very somnolent and not responding to verbal. Labored breathing is noted. Exam Vital Signs Vital Sign - Last Date Time Temp Pulse Resp B/P Pulse Ox O2 Delivery O2 Flow Rate FiO2 09/11/16 18:39 118 22 09/11/16 17:09 36.9 117/73 94 OxyMask 09/11/16 12:25 7.00 Intake and Output 09/10/16 09/10/16 09/11/16 Cumulative From/Thru 15:00 23:00 07:00 08/31/16 13:48 - 09/11/16 05:15 Intake Total 200 ml 766 ml 72 ml 41547 ml Output Total 300 ml 925 ml 25512 ml Balance -100 ml -159 ml 72 ml 9523 ml Intake Oral 200 ml 30 ml 9155 ml IV Total 736 ml 72 ml 31771 ml Packed Cells 600 ml Output Urine Total 300 ml 925 ml 6675 ml Chest Tube Drainage Total 2310 ml Drainage Total 2417 ml Estimated Blood Loss 200 ml # Voids 15 # Bowel Movements 0 Exam Gen.: Gen. somnolent closed eyes not responding to verbal HEENT: Normocephalic, atraumatic Heart: Tachycardic, no S3-S4 murmurs Lungs increased work of breathing, diffuse rales Abdomen: Flat and nondistended Neuro: appears very drowsy and somnolent IVs and Medications Medications Reviewed: Medications were reviewed in detail Lab and Diagnostics Result Diagram: 09/11/16 0500 09/11/16 0500 Microbiology Blood cultures are negative 2 so far X-Rays, CTs and MRIs LOCATED WITHIN [facility] Diagnostic [place] [address] Patient Name: ADALI TILLEY MR#: [id number] Location: [facility] [place] Ordering Phys: Alek Ferrari MD Date of Service: 09/09/16 0500 PROCEDURE: X-RAY CHEST ONE VIEW, PORTABLE ([id number]) INDICATIONS: f/u L VATS, talc, chest tube x2 TECHNIQUE: One view of the chest was acquired. COMPARISON: [facility], CR, XR CHEST 1VW (PORTABLE), 09/08/2016, 5: 49. FINDINGS: Surgical changes and devices: Left basal and apical pleural drains remain in positions, with fissural location of the superior pleural drain better seen on comparison chest CT. Left chest wall Port-A-Cath is again noted. Lungs and pleura: Small basal left pneumothorax has decreased in size. Widespread interstitial and airspace opacities persist, along with dense retrocardiac opacity. Small apical left pleural effusion persists. Mediastinum: Mediastinal contours appear normal. Heart size is normal. Bones and chest wall: No suspicious bony lesions. Mild mid thoracic spine dextroscoliosis is again noted. Overlying soft tissues appear unremarkable. IMPRESSION: 1. Stable positioning of right chest port and pleural drains. 2. Residual left basilar pneumothorax decreased in size from prior examination. 3. Persistent left basilar pneumonia or compressive atelectasis of the left lower lobe, unchanged. 4. Diffuse interstitial and airspace opacities bilaterally persist, consistent with edema and/or pneumonia. Dictated by: Lior Hilton [facility] Interpreted: Jassi Roy MD on 09/09/2016 at 9:00 Transcribed by: EVE on 09/09/2016 at 9:02 Approved by: Jassi Roy M.D. on 09/09/2016 at 17:19 CXR concurrently reviewed by myself shows the Chest Tube in Place on the left. X-RAY CHEST ONE VIEW ([id number]) INDICATIONS: chest tube TECHNIQUE: One view of the chest was acquired. COMPARISON: [facility], CR, XR CHEST 1VW, 09/01/2016, 15:45. [facility], CR, XR CHEST 1VW, 08/26/2016, 17:40. [facility], CR, XR CHEST 1VW, 06/01/2016, 14:03. FINDINGS: Surgical changes and devices: Left-sided portacatheter, tip of which is in the upper SVC. Left chest tube. Lungs and pleura: No pneumothorax. Decreased, [id number] left pleural effusion. No change in moderate patchy multifocal bilateral pulmonary opacities. Mediastinum: Mediastinal contours appear normal. Heart size is normal. Bones and chest wall: No suspicious bony lesions. Overlying soft tissues appear unremarkable. IMPRESSION: 1. Decreasing left pleural effusion following left chest tube placement. 2. No change in multifocal pneumonia. Patient Name: ADALI TILLEY MR#: [id number] Location: [facility] Ordering Phys: Johanna Islas DO Date of Service: 09/05/16 1031 PROCEDURE: CT CHEST WITH CONTRAST ([id number]) INDICATIONS: f/u Left pleural effusion s/p chest tube TECHNIQUE: After the administration of intravenous contrast, 5 mm thick sections acquired from the pulmonary apices to the posterior costophrenic angles. 7 mm thick coronal and sagittal MIP reformats were acquired. For radiation dose reduction , the following was used: automated exposure control, adjustment of mA and/or kV according to patient size. COMPARISON: [facility], CT, CT ANGIO CHEST PE, 08/25/2016, 14:59. [facility], CT, CT CHEST W CON, 10/28/2015, 8:23. FINDINGS: Image quality: Excellent. Lungs and pleura: There is a new left-sided chest tube with the tip extending to the superior segment of the left lower lobe in the apex. There is marked decrease in the large pleural effusion seen on the prior study. There is a residual moderate amount of pleural fluid as well as a small amount of hydropneumothorax. There are also areas of loculated pleural fluid including along the left apex. There is improved aeration of the left lung with assistant men's soccer coach consolidation in the left lower lobe and left lingula inferiorly as well as linear areas of presumed compressive atelectasis. Within the left upper lobe at the apex, there is an irregular mass redemonstrated, measuring approximately 3.7 x 2.0 cm in transverse dimension, similar in appearance compared to the recent study given differences in technique. There is pleural thickening and enhancement along the left hemithorax. On the right, there is a moderate size right pleural effusion which is new compared to the prior study with associated compressive atelectasis. There are also peribronchial areas of consolidation and groundglass opacities in the right lung with an apical predominance. The trachea and central airways are patent. Mediastinum: There is a left chest wall subclavian Port-A-Cath with the tip extending into the superior vena cava. Heart size is normal. No pericardial effusion. There is hilar soft tissue fullness suggestive of lymphadenopathy bilaterally with encasement and narrowing of left perihilar structures. Thoracic aorta and central pulmonary arteries are normal in size. Esophagus is normal in caliber. No hiatal hernia. Bones and chest wall: There are a few scattered sclerotic lesions in the spine including the C7 vertebral body consistent with metastatic disease. No vertebral body compression fractures. No axillary or supraclavicular adenopathy by size criteria. Thyroid gland demonstrates no discrete nodules. Abdomen: Visualized upper abdominal solid organs appear normal. Upper abdominal bowel loops are normal in caliber. IMPRESSION: 1. Decrease in size of left pleural effusion status post chest tube placement. There is persistent moderate right pleural fluid with areas of loculation as well as a small hydropneumothorax. 2. Left pleural thickening and enhancement suspicious for metastatic disease. 3. Irregular left apical mass consistent with history of lung cancer similar in size to the recent prior study. Dictated by: Nancy Barron M.D Assessment & Plan The patient is a 65-year-old female with recurrent malignant pleural effusion who came into [facility] emergency room because she was dyspneic admitted because of respiratory failure. # Acute respiratory failure-secondary to recurrent malignant pleural effusion -Chest tube was placed with significant drainage of the pleural effusion. Yesterday's CXR shows no further improvement in the pleural effusion. CT Chest this AM showed some improvement but also some right sided effusion -She is now pending TPA infusion and if not successful then pleurodesis by general surgery in the next few days: She will go to the OR tomorrow : She underwent Video assisted pleurodesis on 09/06/16. Doing well, switching her to PO pain meds today with the hope of discharge tomorrow -- Pneumothorax is noted per X-ray done by surgery 09/08/16. Radiological findings also significant for effusions vs pneumonia. Ordered procalcitonin. Clinically, she does not appear to have pneumonia. UA is also ordered. -- 09/09/16 : Improvement noted pneumothorax per today's x-ray. Also much reduced output in pleur-vac -09/10/16: Patient's chest tube was removed this AM, Dr. Henderson will remove the other one 09/11/16. Patient had an acute episode of dyspnea and needed 15L. DDX includes PE, dissection, ARDS and aspiration. Earlier, her CXR findings were thought to be due to atelectasis vs aspiration, R sided consolidation thought to be improving. She has needed fluids last 2 days due to tachycardia. Today one of the chest tubes were removed. She was on PO pain control per palliative care. She had an acute episode of SOB and needed 15L mask. A follow up CX was performed and surgery came and checked the chest tube. Family was counselled on the benefits and risks of moving patient up to CCU, they have asked for comfort measures only. We explained to them that we will never know the cause of her acute deterioration as ARDS, PE etc have not been ruled out and they understand this and are agreeable with this. Patient was delirious earlier in the day and she became more agitated with the acute episode. - Ativan PRN, morphine PRN orders were put in. Tele was discontinued. Comfort measures were provided. -- The family signed new by POLST form asking for comfort measures only -- Palliative care tomorrow to meet with family to take the discussion further on how/if to discharge patient in the coming days as she appears to be relatively stable # Possible pneumonia- by CT scan 08/25 "possible "pneumonia - We will continue current antibiotics until her 10 day treatment course has been completed: This is completed # Oral thrush - Continue Diflucan therapy. We will discontinue after 7 days of therapy # The patient has been anticoagulated for a DVT, in September 2015, gastronemius/ peroneal- since this was a year ago and distal do not see a need to bridge this patient before resuming warfarin, consider discussing with her primary oncologist Dr. Lord -Likely to have a hypercoagulable state due to her lung cancer. # Acute blood loss Anemia-with the patient's hemoglobin steadily dropping from 10.9 08/16, to 9.9 08/30, 2 9.0 08/31, to 7.6/29.1 - Therefore 2 units of packed red blood cells were given 2 days ago with a resulting hemoglobin of 12.3, now 8.4 today. Continue to monitor # Leukocytosis-improving with Levaquin, today 10.1. Levaquin was stopped -Will continue to complete 10 day course: Done # Prophylaxis-DVT we will place SCDs, no anticoagulation due to acute blood loss anemia. Disposition-plan is discharge after she shows improvement GI Prophylaxis: Not indicated VTE Prophylaxis: SCDs VTE Mechanical Devices: Intermittant Pneumatic CD Resuscitation Status: DNR/DNI:Do Not Resuscitate/Intubate Indy Schuler DO Sep 11, 2016 20:30
[2016-09-12 01:00] VITALS: PULSE 115; RESP 20
--- NOTE | 2016-09-12 04:29 | NUR ---
Pt time of was 0150. was at bedside and called pt sister and daughter. donor referral line was called and they talked to the family. [facility] gave nurse instructions to rinse pts eyes with saline, cover them with paper tape and elevate her head. nurse followed instructions. once family had left the chest tube and tamayo cath were removed. elliott-cath was de-accessed. pt cleaned and placed in body bag with proper identification. pt transferred to [facility] [place].
--- NOTE | 2016-09-14 20:44 | PCM.DC.MED ---
Discharge Summary Date of Service Sep 14, 2016 Dates of Hospitalization Date of Hospital Admission Aug 31, 2016 at 17:11 Date of Discharge: Sep 12, 2016 Providers: Admitting Physician: Adin Bro MD Primary Care Physician: Itzel Colon MD Attending Physician: Adin Bro MD Diagnosis at Time of Discharge Diagnosis at Time of Discharge Acute respiratory failure due to recurrent malignant pleural effusions, Stage IV lung adenocarcinoma, Pneumonia, anemia of chronic disease, pneumothorax Consultations General Surgery, Physical therapy, Palliative care, Oncology Procedures XRay, CTs & MRIs [facility] Diagnostic Imaging Department [place], [place] [id number] Patient Name: ADALI TILLEY MR#: [id number] Location: [facility] Ordering Phys: Jeremiah Viramontes MD Date of Service: 08/31/16 1351 PROCEDURE: X-RAY CHEST ONE VIEW, PORTABLE ([id number]) INDICATIONS: dyspnea TECHNIQUE: One view of the chest was acquired. COMPARISON: [facility], CR, XR CHEST 1VW (PORTABLE), 08/25/2016, 13: 49. FINDINGS: Surgical changes and devices: Stable positioning of left subclavian chest port. Lungs and pleura: Moderate to large left pleural effusion redemonstrated intense mid left lung and basilar opacification Lungs clear. Mediastinum: Mediastinal contours appear normal. Heart size is normal. Bones and chest wall: No suspicious bony lesions. Overlying soft tissues appear unremarkable. IMPRESSION: Left pleural effusion redemonstrated and mid/basilar airspace opacity consistent with compressive atelectasis, pneumonia or underlying neoplasm. Dictated by: Lior Hilton RRA Interpreted: Gabi Masters MD on 08/31/2016 at 14:39 Transcribed by: IRASEMA on 08/31/2016 at 14:45 Approved by: Gabi Masters MD, PhD on 08/31/2016 at 17:15 [facility] [place] [address] Patient Name: ADALI TILLEY MR#: [id number] Location: [facility] Ordering Phys: Adin Bro MD Date of Service: 09/01/16 1440 PROCEDURE: US GUIDED THORACENTESIS BY REFERRING PHYSICIAN ([id number]) INDICATIONS: recurrent malignant pleural effusion TECHNIQUE: The indications, alternatives, benefits, risks, and complications of the procedure were explained to the patient. Written informed consent was obtained and placed in the chart. The chest was examined sonographically, and an appropriate site was chosen for thoracentesis. The skin was prepared and draped in the usual sterile fashion, and 1% lidocaine was infiltrated from the skin down through the pleural surface. A 19-gauge catheter-covered needle was then introduced into the pleural space, the catheter was advanced and the needle was withdrawn, and thereafter pleural fluid was aspirated. The catheter was then removed and a dressing was applied. The attending physician was present, and personally performed the procedure. COMPARISON: [facility], US, US GUIDED THORACENTESIS, 08/26/2016, 16: 46. FINDINGS: Access site: Left hemithorax. Needle: One-Step centesis catheter with introducer needle. Fluid volume and description: 80 cc of bloody pleural fluid was evacuated and the pleural effusion is multiloculated Fluid sent for diagnostic testing: Therapeutic drainage. Medications: 1% lidocaine for local anaesthesia. Complications: None; post-procedural chest radiograph is pending to assess for pneumothorax. IMPRESSION: Successful ultrasound-guided thoracentesis. Dictated by: Lior Hilton [facility] Interpreted: Gabi Masters MD on 09/02/2016 at 14:59 Transcribed by: IRASEMA on 09/02/2016 at 15:00 Approved by: Gabi Masters MD, PhD on 09/05/2016 at 8:45 [facility] Diagnostic Imaging Department [place], [place] [id number] Patient Name: ADALI TILLEY MR#: [id number] Location: [facility] Ordering Phys: Johanna Islas DO Date of Service: 09/05/16 1031 PROCEDURE: CT CHEST WITH CONTRAST ([id number]) INDICATIONS: f/u Left pleural effusion s/p chest tube TECHNIQUE: After the administration of intravenous contrast, 5 mm thick sections acquired from the pulmonary apices to the posterior costophrenic angles. 7 mm thick coronal and sagittal MIP reformats were acquired. For radiation dose reduction , the following was used: automated exposure control, adjustment of mA and/or kV according to patient size. COMPARISON: [facility], CT, CT ANGIO CHEST PE, 08/25/2016, 14:59. [facility], CT, CT CHEST W CON, 10/28/2015, 8:23. FINDINGS: Image quality: Excellent. Lungs and pleura: There is a new left-sided chest tube with the tip extending to the superior segment of the left lower lobe in the apex. There is marked decrease in the large pleural effusion seen on the prior study. There is a residual moderate amount of pleural fluid as well as a small amount of hydropneumothorax. There are also areas of loculated pleural fluid including along the left apex. There is improved aeration of the left lung with behavioral assistant consolidation in the left lower lobe and left lingula inferiorly as well as linear areas of presumed compressive atelectasis. Within the left upper lobe at the apex, there is an irregular mass redemonstrated, measuring approximately 3.7 x 2.0 cm in transverse dimension, similar in appearance compared to the recent study given differences in technique. There is pleural thickening and enhancement along the left hemithorax. On the right, there is a moderate size right pleural effusion which is new compared to the prior study with associated compressive atelectasis. There are also peribronchial areas of consolidation and groundglass opacities in the right lung with an apical predominance. The trachea and central airways are patent. Mediastinum: There is a left chest wall subclavian Port-A-Cath with the tip extending into the superior vena cava. Heart size is normal. No pericardial effusion. There is hilar soft tissue fullness suggestive of lymphadenopathy bilaterally with encasement and narrowing of left perihilar structures. Thoracic aorta and central pulmonary arteries are normal in size. Esophagus is normal in caliber. No hiatal hernia. Bones and chest wall: There are a few scattered sclerotic lesions in the spine including the C7 vertebral body consistent with metastatic disease. No vertebral body compression fractures. No axillary or supraclavicular adenopathy by size criteria. Thyroid gland demonstrates no discrete nodules. Abdomen: Visualized upper abdominal solid organs appear normal. Upper abdominal bowel loops are normal in caliber. IMPRESSION: 1. Decrease in size of left pleural effusion status post chest tube placement. There is persistent moderate right pleural fluid with areas of loculation as well as a small hydropneumothorax. 2. Left pleural thickening and enhancement suspicious for metastatic disease. 3. Irregular left apical mass consistent with history of lung cancer similar in size to the recent prior study. 4. New irregular peribronchial areas of consolidation and ground glass opacities in the right lung. The findings are nonspecific and may represent pneumonia, drug reaction, or hemorrhage. Recommend correlation clinically and short-term followup as indicated. 5. New moderate size right pleural effusion with compressive atelectasis. 6. Bilateral hilar soft tissue fullness suggestive of lymphadenopathy with associated bronchovascular encasement and narrowing on the left. 7. Sclerotic lesions consistent metastatic disease demonstrated in the spine. Findings are similar to the prior study. Dictated by: Napoleon Best M.D. on 09/05/2016 at 16:12 Approved by: Napoleon Best M.D. on 09/05/2016 at 16:23 [facility] [place] [address] Patient Name: ADALI TILLEY MR#: [id number] Location: [facility] Ordering Phys: Johanna Islas DO Date of Service: 09/05/16 1031 PROCEDURE: CT CHEST WITH CONTRAST ([id number]) INDICATIONS: f/u Left pleural effusion s/p chest tube TECHNIQUE: After the administration of intravenous contrast, 5 mm thick sections acquired from the pulmonary apices to the posterior costophrenic angles. 7 mm thick coronal and sagittal MIP reformats were acquired. For radiation dose reduction , the following was used: automated exposure control, adjustment of mA and/or kV according to patient size. COMPARISON: [facility], CT, CT ANGIO CHEST PE, 08/25/2016, 14:59. [facility], CT, CT CHEST W CON, 10/28/2015, 8:23. FINDINGS: Image quality: Excellent. Lungs and pleura: There is a new left-sided chest tube with the tip extending to the superior segment of the left lower lobe in the apex. There is marked decrease in the large pleural effusion seen on the prior study. There is a residual moderate amount of pleural fluid as well as a small amount of hydropneumothorax. There are also areas of loculated pleural fluid including along the left apex. There is improved aeration of the left lung with behavioral assistant consolidation in the left lower lobe and left lingula inferiorly as well as linear areas of presumed compressive atelectasis. Within the left upper lobe at the apex, there is an irregular mass redemonstrated, measuring approximately 3.7 x 2.0 cm in transverse dimension, similar in appearance compared to the recent study given differences in technique. There is pleural thickening and enhancement along the left hemithorax. On the right, there is a moderate size right pleural effusion which is new compared to the prior study with associated compressive atelectasis. There are also peribronchial areas of consolidation and groundglass opacities in the right lung with an apical predominance. The trachea and central airways are patent. Mediastinum: There is a left chest wall subclavian Port-A-Cath with the tip extending into the superior vena cava. Heart size is normal. No pericardial effusion. There is hilar soft tissue fullness suggestive of lymphadenopathy bilaterally with encasement and narrowing of left perihilar structures. Thoracic aorta and central pulmonary arteries are normal in size. Esophagus is normal in caliber. No hiatal hernia. Bones and chest wall: There are a few scattered sclerotic lesions in the spine including the C7 vertebral body consistent with metastatic disease. No vertebral body compression fractures. No axillary or supraclavicular adenopathy by size criteria. Thyroid gland demonstrates no discrete nodules. Abdomen: Visualized upper abdominal solid organs appear normal. Upper abdominal bowel loops are normal in caliber. IMPRESSION: 1. Decrease in size of left pleural effusion status post chest tube placement. There is persistent moderate right pleural fluid with areas of loculation as well as a small hydropneumothorax. 2. Left pleural thickening and enhancement suspicious for metastatic disease. 3. Irregular left apical mass consistent with history of lung cancer similar in size to the recent prior study. 4. New irregular peribronchial areas of consolidation and ground glass opacities in the right lung. The findings are nonspecific and may represent pneumonia, drug reaction, or hemorrhage. Recommend correlation clinically and short-term followup as indicated. 5. New moderate size right pleural effusion with compressive atelectasis. 6. Bilateral hilar soft tissue fullness suggestive of lymphadenopathy with associated bronchovascular encasement and narrowing on the left. 7. Sclerotic lesions consistent metastatic disease demonstrated in the spine. Findings are similar to the prior study. Dictated by: Napoleon Best M.D. on 09/05/2016 at 16:12 Approved by: Napoleon Best M.D. on 09/05/2016 at 16:23 [facility] Diagnostic Imaging Department [place], [place] [id number] Patient Name: ADALI TILLEY MR#: [id number] Location: [facility] Ordering Phys: Johanna Islas DO Date of Service: 09/05/16 1031 PROCEDURE: CT CHEST WITH CONTRAST ([id number]) INDICATIONS: f/u Left pleural effusion s/p chest tube TECHNIQUE: After the administration of intravenous contrast, 5 mm thick sections acquired from the pulmonary apices to the posterior costophrenic angles. 7 mm thick coronal and sagittal MIP reformats were acquired. For radiation dose reduction , the following was used: automated exposure control, adjustment of mA and/or kV according to patient size. COMPARISON: [facility], CT, CT ANGIO CHEST PE, 08/25/2016, 14:59. [facility], CT, CT CHEST W CON, 10/28/2015, 8:23. FINDINGS: Image quality: Excellent. Lungs and pleura: There is a new left-sided chest tube with the tip extending to the superior segment of the left lower lobe in the apex. There is marked decrease in the large pleural effusion seen on the prior study. There is a residual moderate amount of pleural fluid as well as a small amount of hydropneumothorax. There are also areas of loculated pleural fluid including along the left apex. There is improved aeration of the left lung with behavioral assistant consolidation in the left lower lobe and left lingula inferiorly as well as linear areas of presumed compressive atelectasis. Within the left upper lobe at the apex, there is an irregular mass redemonstrated, measuring approximately 3.7 x 2.0 cm in transverse dimension, similar in appearance compared to the recent study given differences in technique. There is pleural thickening and enhancement along the left hemithorax. On the right, there is a moderate size right pleural effusion which is new compared to the prior study with associated compressive atelectasis. There are also peribronchial areas of consolidation and groundglass opacities in the right lung with an apical predominance. The trachea and central airways are patent. Mediastinum: There is a left chest wall subclavian Port-A-Cath with the tip extending into the superior vena cava. Heart size is normal. No pericardial effusion. There is hilar soft tissue fullness suggestive of lymphadenopathy bilaterally with encasement and narrowing of left perihilar structures. Thoracic aorta and central pulmonary arteries are normal in size. Esophagus is normal in caliber. No hiatal hernia. Bones and chest wall: There are a few scattered sclerotic lesions in the spine including the C7 vertebral body consistent with metastatic disease. No vertebral body compression fractures. No axillary or supraclavicular adenopathy by size criteria. Thyroid gland demonstrates no discrete nodules. Abdomen: Visualized upper abdominal solid organs appear normal. Upper abdominal bowel loops are normal in caliber. IMPRESSION: 1. Decrease in size of left pleural effusion status post chest tube placement. There is persistent moderate right pleural fluid with areas of loculation as well as a small hydropneumothorax. 2. Left pleural thickening and enhancement suspicious for metastatic disease. 3. Irregular left apical mass consistent with history of lung cancer similar in size to the recent prior study. 4. New irregular peribronchial areas of consolidation and ground glass opacities in the right lung. The findings are nonspecific and may represent pneumonia, drug reaction, or hemorrhage. Recommend correlation clinically and short-term followup as indicated. 5. New moderate size right pleural effusion with compressive atelectasis. 6. Bilateral hilar soft tissue fullness suggestive of lymphadenopathy with associated bronchovascular encasement and narrowing on the left. 7. Sclerotic lesions consistent metastatic disease demonstrated in the spine. Findings are similar to the prior study. Dictated by: Napoleon Best M.D. on 09/05/2016 at 16:12 Approved by: Napoleon Best M.D. on 09/05/2016 at 16:23 Invasive Procedures Thoracentesis#1 : 09/01/16 Chest tube thoracostomy VATS procedure: 09/06/16 Successful left VATS with decortication and removal of the undrained hemothorax at the base. Talc was placed into the left thorax. Brief History 65 y.o. F past medical history of stage 4 lung Last 08/25/16 seen in ED and discharged with Levofloxacin 750 mg PO daily for pneumonia, now day 610 of treatment. Last thoracentesis Monday 1700 cc, on pathology report maligant cellsconsistent with adenocarcinoma were seen. Monday night patient experienced worsening of symptoms. Patient seen by Oncology 08/30/16 on physical exam decreased breath sounds on left consistent with reacumulated fluid , patient was scheduled for thoracentesis tomorrow 09/01/16. Patient reported a two day history of worsening shortness of breath, associated with fever, non- productive cough, chest pain located across entire chest with radiation to back , nausea, vomiting. Patient seen by PCP Dr. Hall today and was directed to the ED for earlier work up and drainage of fluid reaccumulation. Warfarrin discontinued 08/29/16. Increased oxygen requirements requiring 3 L via NC in ED. Hospital Course The patient is a 65-year-old female with recurrent malignant pleural effusion who came into [facility] emergency room because she was dyspneic admitted because of respiratory failure. # Acute respiratory failure-secondary to recurrent malignant pleural effusion -- Dr. Cano placed a L Chest tube placed 09/01/16 with initial drainage 1600mL. Post procedure CXR shows partial re-expansion of left lung with fluid at base. IR could not do a successful drainage of remaining fluid due to multi- loculation and thickness of fluid, so it was felt that a PleurX catheter would not help her in future. Dr. Cano performed a chest thoracostomy and a pleuvac drainage. Per Dr. Lord, he is holding her chemotherapy and has recommended hospice to patient, but she was not ready for this. Dr. Lord is trying to obtain an oral chemotherapy agent (lapatinib) for her. On 09/06/16, patient underwent VATS/Pleurodesis and a Y shaped chest tube is left in her lung. Pneumothorax is noted per X-ray done by surgery 09/08/16. Radiological findings also significant for effusions vs pneumonia. In the following days, her chest tube drainage slowly decreased and her pneumothorax has improved. Dr. Henderson removed one of the chest tubes on 09/10/16 and was planning to remove the other one on 09/11/16. However, patient had an acute episode of dyspnea and needed 15L oxygen mask. DDX includes PE, dissection, ARDS and aspiration. Earlier, her CXR findings were thought to be due to atelectasis vs aspiration, R sided consolidation thought to be improving. Surgery came and verified that the chest tube is not causing any air leaks or other issues. Family was counselled on the benefits and risks of moving patient up to CCU, they have asked for comfort measures only. We explained to them that we will never know the cause of her acute deterioration as ARDS, PE etc have not been ruled out and they understand this and are agreeable with this. A POLST form was signed by the daughter asking for comfort measures. Ativan PRN, morphine drip orders were put in. Tele was discontinued. Comfort measures were provided. Patient peacefully 09/12/16 AM hours. # Possible pneumonia- by CT scan 08/25 "possible "pneumonia : Patient completed Levaquin PO that was started as outpatient. # Oral thrush: Patient is given PO diflucan # The patient has been anticoagulated for a DVT, in September 2015, gastronemius/ peroneal- since this was a year ago, thus no bridging was done. Her coumadin w as stopped prior to this admission as she had acute blood loss anemia and needed blood transfusion.. # Acute blood loss Anemia-with the patient's hemoglobin steadily dropping from 10.9 08/16, to 9.9 08/30, 2 9.0 08/31, to 7.6/29.1 - Therefore 2 units of packed red blood cells were given # Prophylaxis-DVT we will place SCDs, no anticoagulation due to acute blood loss anemia. Disposition-plan is discharge after she shows improvement Exam Vital Signs (Last) Date Time Temp Pulse Resp B/P Pulse Ox O2 Delivery O2 Flow Rate FiO2 09/12/16 01:00 115 20 09/11/16 19:45 Supplement Oxygen Chest Tubes 09/11/16 17:09 36.9 117/73 94 09/11/16 12:25 7.00 Exam Please refer to exam done on 09/11/16 as documented in the progress note Test 08/31/16 14:50 09/01/16 02:00 09/02/16 01:55 09/06/16 05:45 Lactic Acid Level 1.7mmol/L (0.4-2.0) Reticulocyte Count,Calculated 3.4% (0.6-2.6) Iron Level 30ug/dL (35-150) Total Iron Binding Capacity 155ug/dL (250-450) Percent Iron Saturation 19%sat (15-50) Unsaturated Iron Binding 124.7ug/dL Ferritin 313ng/mL (13-150) Lactate Dehydrogenase 164U/L (100-190) Vitamin B12 Level 672pg/mL (211-946) Phosphorus Level 3.2mg/dL (2.5-4.9) Magnesium Level 1.6mg/dL (1.6-2.6) Prothrombin Time 11.0sec (8.1-12.5) Prothromb Time International Ratio 1.03ratio Test 09/09/16 04:45 09/09/16 10:14 09/10/16 06:30 09/11/16 05:00 Total Bilirubin 0.3mg/dL (0.0-1.2) Aspartate Amino Transf (AST/SGOT) 14U/L (0-50) Alanine Aminotransferase (ALT/SGPT) 6U/L (0-32) Alkaline Phosphatase 75U/L (25-165) Total Protein 4.2g/dL (6.4-8.4) Albumin 1.6g/dL (3.4-5.0) Urine Color Yellow (YELLOW) Urine Appearance Clear (CLEAR,HAZY) Urine pH 6.0 (5.0-8.0) Urine Specific [place] 1.025 (1.003-1.035) Urine Protein Negativemg/dL (NEG,TRACE) Urine Glucose (UA) Negativemg/dL (NEGATIVE) Urine Ketones Negativemg/dL (NEGATIVE) Urine Occult Blood Negative (NEGATIVE) Urine Nitrite Negative (NEGATIVE) Urine Bilirubin Negative (NEGATIVE) Urine Urobilinogen Normalmg/dL (NORMAL) Urine Leukocyte Esterase Negative (NEGATIVE) Urine RBC 0-2/hpf (0-2) Urine WBC 0-5/hpf (0-5) Urine Epithelial Cells Occasional/hpf (NONE-MOD) Urine Crystals None seen (NONE SEEN) Urine Bacteria None/hpf (NONE-FEW) Urine Hyaline Casts Occasional/lpf (NONE) Urine Granular Casts None seen (NONE SEEN) Urine Waxy Casts None seen (NONE SEEN) Urine Red Blood Cell Casts None seen (NONE SEEN) Urine White Blood Cell Casts None seen (NONE SEEN) Urine Mucus Present (None Seen) Urine Trichomonas None seen (NONE SEEN) Urine Yeast None (NONE SEEN) Urinalysis Comment None Urine Culture Reflexed Not indicated Procalcitonin 0.07ng/mL (0.00-0.08) White Blood Count 18.8th/mm3 (3.8-10.1) Red Blood Count 3.23mil/mm3 (3.90-5.20) Hemoglobin 9.1g/dL (12.0-15.6) Hematocrit 28.7% (35.0-46.0) Mean Corpuscular Volume 88.9fL (81-100) Mean Corpuscular Hemoglobin 28.2pg (27.0-35.0) Mean Corpuscular Hemoglobin Concent 31.7% (32.0-37.0) Red Cell Distribution Width 16.7% (12.3-15.4) Platelet Count 466bil/L (150-400) Neutrophils (%) (Auto) 84.4% (40-74) Lymphocytes (%) (Auto) 4.9% (14-46) Monocytes (%) (Auto) 9.6% (4-12) Eosinophils (%) (Auto) 0.3% (0-5) Basophils (%) (Auto) 0.2% (0-3) Sodium Level 139mEq/L (134-144) Potassium Level 3.7mEq/L (3.5-5.2) Chloride Level 100mEq/L (97-108) Carbon Dioxide Level 24mmol/L (18-29) Blood Urea Nitrogen 7mg/dL (8-27) Creatinine 0.31mg/dL (0.57-1.00) Estimat Glomerular Filtration Rate 309mL/min (>59) Glucose Level 103mg/dL (60-99) Calcium Level 7.9mg/dL (8.5-10.1) Microbiology Results Blood cultures are negative 2 so far Discharge Medications Discharge Medications Folic Acid (Folic Acid) 1 Mg Tablet 1 MG PO DAILY (Reported) Levofloxacin (Levaquin) 750 Mg Tablet 750 MG PO DAILY Prescribed by: HARRIET CHAPARRO Oxycodone ER (Oxycontin) 20 Mg Tab.er.12h 20 MG PO HS (Reported) Sertraline HCl (Sertraline) 50 Mg Tablet 150 MG PO DAILY (Reported) As needed Lorazepam (Ativan) 0.5 Mg Tablet 0.25 MG PO TID PRN PRN For Anxiety (Reported) 1/2 tablet for nausea/anxiety/insomnia Metoclopramide (Metoclopramide) 5 Mg Tablet 5 MG PO QID PRN PRN For Nausea ( Reported) Ondansetron ODT (Zofran ODT) 4 Mg Tablet 4 MG PO Q4H PRN PRN For Nausea Prescribed by: HARRIET CHAPARRO Zolpidem (Ambien) 10 Mg Tablet 10 MG PO HS PRN PRN For Insomnia (Reported) Indy Schuler DO Sep 14, 2016 20:44 Prescribed by: HARRIET CHAPARRO Oxycodone ER (Oxycontin) 20 Mg Tab.er.12h 20 MG PO HS (Reported) Sertraline HCl (Sertraline) 50 Mg Tablet 150 MG PO DAILY (Reported) As needed Lorazepam (Ativan) 0.5 Mg Tablet 0.25 MG PO TID PRN PRN For Anxiety (Reported) 1/2 tablet for nausea/anxiety/insomnia Metoclopramide (Metoclopramide) 5 Mg Tablet 5 MG PO QID PRN PRN For Nausea ( Reported) Ondansetron ODT (Zofran ODT) 4 Mg Tablet 4 MG PO Q4H PRN PRN For Nausea Prescribed by: HARRIET CHAPARRO Zolpidem (Ambien) 10 Mg Tablet 10 MG PO HS PRN PRN For Insomnia (Reported) Indy Schuler DO Sep 14, 2016 20:44
== END 2016-09-12 01:50 | disposition expired | DRG 163 ==
LOC: EDUNIT# 13:41 → SED 13:41 → EDBD 13:41 → SED 17:08 → OBSVTOIN 17:11 → OSC 17:11
PROVIDERS: ADMIT Hospitalist; ATTEND Hospitalist
PROC: 0W9B30Z Drainage of Left Pleural Cavity with Drainage Device, Percutaneous Approach (ICD-10-PCS; 2016-09-01)
PROC: 0W9B3ZZ Drainage of Left Pleural Cavity, Percutaneous Approach (ICD-10-PCS; 2016-09-01)
PROC: 30233N1 Transfusion of Nonautologous Red Blood Cells into Peripheral Vein, Percutaneous Approach (ICD-10-PCS; 2016-09-02)
PROC: 0W9B40Z Drainage of Left Pleural Cavity with Drainage Device, Percutaneous Endoscopic Approach (ICD-10-PCS; 2016-09-06)
PROC: 3E0L3GC Introduction of Other Therapeutic Substance into Pleural Cavity, Percutaneous Approach (ICD-10-PCS; 2016-09-06)
PROC: 0BDP4ZZ Extraction of Left Pleura, Percutaneous Endoscopic Approach (ICD-10-PCS; principal; 2016-09-06 12:30)
DX: C34.92 Malignant neoplasm of unspecified part of left bronchus or lung (principal); J96.01 Acute respiratory failure with hypoxia; J18.9 Pneumonia, unspecified organism; J91.0 Malignant pleural effusion; D62 Acute posthemorrhagic anemia; B37.0 Candidal stomatitis; J93.9 Pneumothorax, unspecified; D63.0 Anemia in neoplastic disease; Z51.5 Encounter for palliative care